=== PATIENT | male | born 1960 | race Caucasian/White ===

== ENCOUNTER 2024-01-14 12:08 | Inpatient (IN) ==
[2024-01-14] MEDS: SODIUM CHLORIDE 0.9% 500 ML IV STA (12:35)
[2024-01-14 12:59] LABS: Basophils # (auto) 0.03 K/uL (0.00-0.20); Basophils % (auto) 0.2 %; Eosinophils # (auto) 0.17 K/uL (0.00-0.50); Hematocrit (blood only) 29.2 % (42.0-52.0); Hemoglobin 8.9 g/dl (14.0-18.0); Immature Granulocytes # (auto) 0.12 K/uL (0.01-0.20); Immature Granulocytes % (auto) 0.7 %; Lymphocytes # (auto) 1.25 K/uL (1.20-3.40); Lymphocytes % (auto) 7.4 %; Mean Corpuscular Hgb Conc 30.5 g/dL (32.0-36.0); Mean Platelet Volume 9.3 fL (9.4-12.4); Monocytes # (auto) 1.05 K/uL (0.11-0.59); Monocytes % (auto) 6.2 %; Neutrophils # (auto) 14.37 K/uL (1.40-6.50); Neutrophils % (auto) 84.5 %; Platelet Count 556 K/uL (130-400); RDW Coefficient of Variation 16.3 % (11.5-14.5); Red Blood Count 3.56 M/uL (4.70-6.10); White Blood Count 16.99 K/ul (4.8-10.8)
[2024-01-14 13:20] LABS: Alanine Aminotransferase 11 U/L (7-52); Albumin Globulin Ratio 0.7 (0.9-2); Albumin Level 2.8 gm/dl (3.4-5.0); Alkaline Phosphatase 331 U/L (34-104); Anion Gap 12 (3-11); Aspartate Aminotransferase 41 U/L (13-39); BUN Creatinine Ratio 23.4 (10-20); Bilirubin,Total 0.5 mg/dl (0.2-1.0); Blood Urea Nitrogen 15 mg/dl (6-23); Calcium 8.5 mg/dl (8.6-10.3); Carbon Dioxide 24 mmol/L (21-32); Chloride 98 mmol/L (98-107); Est GFR (African American) 122.5 ml/min; Est GFR (Non-African American) 105.7 ml/min; Globulin 4.3 gm/dl (2.5-4.0); Glucose 121 mg/dl (70-99(Fasting)); Magnesium 1.7 mg/dl (1.7-2.4); Potassium 4.3 mmol/L (3.5-5.1); Sodium 134 mmol/L (136-145); Total Protein 7.1 gm/dl (6.0-8.3)
[2024-01-14 13:21] LABS: Troponin I High Sensitivity 10.9 pg/ml (0-20)
[2024-01-14] MEDS: SODIUM CHLORIDE 0.9% 2,000 ML IV ONE (13:23)
--- NOTE | 2024-01-14 13:28 | Emergency Department Note ---
Impression & Plan Abdominal pain, Metastatic colon cancer to liver, Elevated lactic acid level, Leukocytosis ED Provider Note HISTORY OF PRESENT ILLNESS: Patient is a 63-year-old male presenting with right-sided abdominal pain. Patient reports has been having abdominal pain in his right lower and upper quadrants for the last 2 weeks. He states the pain is constant and does not go away. He states the pain radiates into his right low back. Denies any nausea or vomiting. He does report diarrhea that started late last night. He denies any recent sick contact exposures. Denies any fevers. He went to the present medic unit last night and complained of symptoms and they transferred him to the emergency department today for assessment. Patient denies any dysuria or hematuria. He denies any history of abdominal surgeries. He currently rates the pain a 9 out of 10. He took Tylenol earlier today with minimal relief in his symptoms. ROS: as above PHYSICAL EXAM: Constitutional: Patient appears in no acute distress. HENT: Head: Normocephalic and atraumatic. Eyes: EOMI, PERRL Mouth/Throat: Mucous membranes moist. Neck: Trachea midline. Neck supple. Cardiovascular: Tachycardic with regular rhythm. No murmurs, rubs or gallops. Intact distal pulses. Pulmonary/Chest: No respiratory distress. Breath sounds clear and equal bilaterally. No wheezes or rales. Abdominal: Abdomen soft, no rebound or guarding. RUQ and RLQ TTP Musculoskeletal: No edema, tenderness or deformity noted. Skin: Warm and dry. No rash, erythema, pallor or cyanosis Psychiatric: Appropriate mood and affect for situation. Neurological: Alert and keenly responsive. CN II-XII grossly intact, moving all extremities equally and fully. MDM: - Vitals signs showed hypotension and tachycardia. - History obtained via patient. History as above. - Chronic conditions affecting care: depression/anxiety; DM-2 - Differential diagnoses include, but are not limited to: cholecystitis; diverticulitis; colon cancer; appendicitis; UTI; perforated peptic ulcer - Order placed for continuous cardiac monitoring. At this time, monitor showed rate of 85 bpm with normal sinus rhythm, per my interpretation. - External medical records reviewed. - EKG interpreted by myself showed normal sinus rhythm. Rate tachycardic at 102 bpm. QT 348. No acute ischemic changes. - Laboratory workup interpreted by myself showed leukocytosis (WBC 16.99) wtih left shift; anemia (Hgb 8.9); elevated INR (1.2); normal electrolytes; elevated anion gap (12); elevated lactate (4.0); hypocalcemia (Ca 8.5); elevated procalcitonin (0.65) - CXR negative for pneumonia, per my interpretation. Radiology notes bilateral metastases. - Patient given 1.5L NS in ER. Repeat lactate within normal limits - Blood cultures obtained. Patient empirically started on IV zosyn. - Given 0.5 mg IV dilaudid for pain control. - CT abdomen/pelvis with IV contrast showed a large necrotic mass in the cecum and ascending colon concerning for primary malignancy. Noted to have extensive metastatic disease. No obstruction noted. Noted to have subacute fractures of the posterior 10th rib, and T12-L2 superior endplates. - Patient still complaining of significant pain in ER. Will admit to hospitalist service for pain control and heme/onc consultation and/or palliative consultation. - Discussion was had with case managers about patient's case and need for admission - Hospitalist, Dr. Smith, consulted for admission - Patient admitted to [facility] hospitalist service for further evaluation and management. ASSESSMENT AND PLAN: Diagnosis: abdominal pain; metastatic colon cancer; leukocytosis; elevated lactic acid Plan: admit Past Med/Surg History Problem List (Updated 01/14/24 @ 16:00 by Taylor Salcedo MD) Leukocytosis (Acute) Elevated lactic acid level (Acute) Metastatic colon cancer to liver (Acute) Abdominal pain (Acute) Social History Smoking Status: Never smoker Feels Safe at Home: Yes Results & Data (ED) Vital Signs Vital Signs - 24 hr 01/14/24 12:15 01/14/24 13:09 01/14/24 13:09 Temperature 36.7 C 36.9 C Temperature Source Oral Oral Pulse Rate 102 H Pulse Rate [Apical] 93 H Pulse Rate from SpO2 Sensor Pulse Rhythm Regular Respiratory Rate 20 20 Respiratory Effort / Characteristics Non-Labored Spontaneous Non-Labored Spontaneous Respiratory Depth Normal Respiratory Pattern Regular Blood Pressure 99/69 L Blood Pressure [Left Arm] 103/67 Blood Pressure Mean 79 Blood Pressure Mean [Left Arm] 79 Blood Pressure Position [Left Arm] Semi-fowlers Pulse Oximetry 97 98 98 Oxygen Delivery Method Room Air Room Air Room Air Sepsis Recent Fever Within 48 Hours No Sepsis New/Unexplained Change in Mental Status No Sepsis Action Taken by Nursing No Action Required 01/14/24 13:09 01/14/24 13:27 01/14/24 13:30 Temperature Temperature Source Pulse Rate 93 H 87 89 Pulse Rate [Apical] Pulse Rate from SpO2 Sensor 89 Pulse Rhythm Respiratory Rate 19 26 H Respiratory Effort / Characteristics Respiratory Depth Respiratory Pattern Blood Pressure 110/75 Blood Pressure [Left Arm] Blood Pressure Mean 85 Blood Pressure Mean [Left Arm] Blood Pressure Position [Left Arm] Pulse Oximetry 97 Oxygen Delivery Method Room Air Sepsis Recent Fever Within 48 Hours Sepsis New/Unexplained Change in Mental Status Sepsis Action Taken by Nursing 01/14/24 13:51 01/14/24 14:12 01/14/24 14:30 Temperature Temperature Source Pulse Rate 89 90 89 Pulse Rate [Apical] Pulse Rate from SpO2 Sensor 89 90 Pulse Rhythm Respiratory Rate 26 H 27 H 21 Respiratory Effort / Characteristics Respiratory Depth Respiratory Pattern Blood Pressure Blood Pressure [Left Arm] Blood Pressure Mean Blood Pressure Mean [Left Arm] Blood Pressure Position [Left Arm] Pulse Oximetry 94 92 Oxygen Delivery Method Sepsis Recent Fever Within 48 Hours Sepsis New/Unexplained Change in Mental Status Sepsis Action Taken by Nursing 01/14/24 14:30 01/14/24 14:30 01/14/24 14:30 Temperature Temperature Source Pulse Rate 89 Pulse Rate [Apical] Pulse Rate from SpO2 Sensor Pulse Rhythm Respiratory Rate 19 Respiratory Effort / Characteristics Respiratory Depth Respiratory Pattern Blood Pressure 115/74 115/74 115/74 Blood Pressure [Left Arm] Blood Pressure Mean 82 82 82 Blood Pressure Mean [Left Arm] Blood Pressure Position [Left Arm] Pulse Oximetry 95 Oxygen Delivery Method Room Air Sepsis Recent Fever Within 48 Hours Sepsis New/Unexplained Change in Mental Status Sepsis Action Taken by Nursing 01/14/24 14:30 01/14/24 14:42 01/14/24 14:54 Temperature Temperature Source Pulse Rate 91 H 91 H 87 Pulse Rate [Apical] Pulse Rate from SpO2 Sensor Pulse Rhythm Respiratory Rate 26 H 26 H 24 Respiratory Effort / Characteristics Respiratory Depth Respiratory Pattern Blood Pressure 115/74 Blood Pressure [Left Arm] Blood Pressure Mean 82 Blood Pressure Mean [Left Arm] Blood Pressure Position [Left Arm] Pulse Oximetry 95 Oxygen Delivery Method Room Air Sepsis Recent Fever Within 48 Hours Sepsis New/Unexplained Change in Mental Status Sepsis Action Taken by Nursing 01/14/24 14:57 01/14/24 15:00 01/14/24 15:09 Temperature Temperature Source Pulse Rate 88 86 Pulse Rate [Apical] 85 Pulse Rate from SpO2 Sensor 86 Pulse Rhythm Respiratory Rate 26 H 22 20 Respiratory Effort / Characteristics Non-Labored Spontaneous Respiratory Depth Normal Respiratory Pattern Regular Blood Pressure 111/69 Blood Pressure [Left Arm] 111/69 Blood Pressure Mean 77 Blood Pressure Mean [Left Arm] 83 Blood Pressure Position [Left Arm] Semi-fowlers Pulse Oximetry 96 96 Oxygen Delivery Method Room Air Room Air Sepsis Recent Fever Within 48 Hours Sepsis New/Unexplained Change in Mental Status Sepsis Action Taken by Nursing 01/14/24 15:21 01/14/24 15:24 01/14/24 15:30 Temperature Temperature Source Pulse Rate 86 87 Pulse Rate [Apical] Pulse Rate from SpO2 Sensor 86 87 Pulse Rhythm Respiratory Rate 21 20 Respiratory Effort / Characteristics Respiratory Depth Respiratory Pattern Blood Pressure 121/77 Blood Pressure [Left Arm] Blood Pressure Mean 96 Blood Pressure Mean [Left Arm] Blood Pressure Position [Left Arm] Pulse Oximetry 98 95 Oxygen Delivery Method Sepsis Recent Fever Within 48 Hours Sepsis New/Unexplained Change in Mental Status Sepsis Action Taken by Nursing 01/14/24 15:36 01/14/24 15:57 01/14/24 16:00 Temperature Temperature Source Pulse Rate 85 82 Pulse Rate [Apical] Pulse Rate from SpO2 Sensor 85 85 Pulse Rhythm Respiratory Rate 20 20 Respiratory Effort / Characteristics Respiratory Depth Respiratory Pattern Blood Pressure 108/73 Blood Pressure [Left Arm] Blood Pressure Mean 88 Blood Pressure Mean [Left Arm] Blood Pressure Position [Left Arm] Pulse Oximetry 96 95 Oxygen Delivery Method Sepsis Recent Fever Within 48 Hours Sepsis New/Unexplained Change in Mental Status Sepsis Action Taken by Nursing 01/14/24 16:00 01/14/24 16:00 Temperature Temperature Source Pulse Rate 90 90 Pulse Rate [Apical] Pulse Rate from SpO2 Sensor 90 90 Pulse Rhythm Respiratory Rate 20 20 Respiratory Effort / Characteristics Respiratory Depth Respiratory Pattern Blood Pressure 108/73 Blood Pressure [Left Arm] Blood Pressure Mean 88 Blood Pressure Mean [Left Arm] Blood Pressure Position [Left Arm] Pulse Oximetry 97 97 Oxygen Delivery Method Room Air Sepsis Recent Fever Within 48 Hours Sepsis New/Unexplained Change in Mental Status Sepsis Action Taken by Nursing Laboratory Data 01/14/24 12:30 01/14/24 12:30 Lab Results 01/14/24 01/14/24 Range/Units 12:30 15:05 WBC 16.99 H (4.8-10.8) K/ul RBC 3.56 L (4.70-6.10) M/uL Hgb 8.9 L (14.0-18.0) g/dl Hct 29.2 L (42.0-52.0) % MCV 82.0 (80.0-100.0) fL MCH 25.0 (25.0-34.0) pg MCHC 30.5 L (32.0-36.0) g/dL RDW Std Deviation 49.0 H (36.4-46.3) fL RDW Coeff of Lin 16.3 H (11.5-14.5) % Plt Count 556 H (130-400) K/uL MPV 9.3 L (9.4-12.4) fL Immature Gran % (Auto) 0.7 % Neut % (Auto) 84.5 % Lymph % (Auto) 7.4 % [place] % (Auto) 6.2 % Eos % (Auto) 1.0 % Baso % (Auto) 0.2 % Neut # (Auto) 14.37 H (1.40-6.50) K/uL Lymph # (Auto) 1.25 (1.20-3.40) K/uL [place] # (Auto) 1.05 H (0.11-0.59) K/uL Eos # (Auto) 0.17 (0.00-0.50) K/uL Baso # (Auto) 0.03 (0.00-0.20) K/uL Immature Gran # (Auto) 0.12 (0.01-0.20) K/uL PT 12.4 H (9.0-12.0) Seconds INR 1.2 H (0.9-1.1) APTT 26 (21-31) Seconds PTT Ratio 1.0 Sodium 134 L (136-145) mmol/L Potassium 4.3 (3.5-5.1) mmol/L Chloride 98 (98-107) mmol/L Carbon Dioxide 24 (21-32) mmol/L Anion Gap 12 H (3-11) BUN 15 (6-23) mg/dl Creatinine 0.64 (0.6-1.4) mg/dl Est Cr Clr Drug Dosing Not Reportable Est GFR ( Amer) 122.5 ml/min Est GFR (Non-Af Amer) 105.7 ml/min BUN/Creatinine Ratio 23.4 H (10-20) Glucose 121 H (70-99(Fasting)) mg/dl Lactate 4.0 H* 1.8 (0.4-2.0) mmol/L Calcium 8.5 L (8.6-10.3) mg/dl Magnesium 1.7 (1.7-2.4) mg/dl Total Bilirubin 0.5 (0.2-1.0) mg/dl AST 41 H (13-39) U/L ALT 11 (7-52) U/L Alkaline Phosphatase 331 H (34-104) U/L Troponin I High Sens 10.9 (0-20) pg/ml Total Protein 7.1 (6.0-8.3) gm/dl Albumin 2.8 L (3.4-5.0) gm/dl Globulin 4.3 H (2.5-4.0) gm/dl Albumin/Globulin Ratio 0.7 L (0.9-2) Procalcitonin 0.65 H (0-0.5) ng/ml Administered Medications Discontinued Medications Hydromorphone HCl (Hydromorphone Inj 0.5 Mg/0.5 Ml Syr) 0.5 mg IV NOW STA Stop: 01/14/24 15:12 Last Admin: 01/14/24 15:17 Dose: 0.5 mg Documented By: GIAN Sodium Chloride (Nss) 500 mls @ 999 mls/hr IV .Q31M STA Stop: 01/14/24 12:49 Last Infusion: 01/14/24 13:07 Dose: Infused Documented By: Admin: 01/14/24 12:35 Dose: 999 mls/hr Documented By: SANDEEP Sodium Chloride (Nss) 2,000 mls @ 999 mls/hr IV .Q2H1M ONE Stop: 01/14/24 14:57 Last Infusion: 01/14/24 16:18 Dose: Infused Documented By: Admin: 01/14/24 13:23 Dose: 999 mls/hr Documented By: NESSA Piperacillin Sod/Tazobactam Sod (Zosyn) 4.5 gm in 100 mls @ 200 mls/hr IV NOW ONE Stop: 01/14/24 13:32 Last Infusion: 01/14/24 16:18 Dose: Infused Documented By: Admin: 01/14/24 15:03 Dose: 200 mls/hr Documented By: GIAN Ioversol (Optiray 320 100ml) 93 ml IV ONCE ONE Stop: 01/14/24 13:43 Last Admin: 01/14/24 13:43 Dose: 93 ml Documented By: MARCIE Imaging Data Radiologist's Impression: Chest X-Ray 01/14/24 12:19 XR chest 1V portable HISTORY: 63 years-old Male Sepsis COMPARISON: CT abdomen and pelvis of same day TECHNIQUE: AP view of the chest FINDINGS: Cardiac silhouette is normal. Scattered bilateral solid pulmonary nodules measure up to 1.4 cm within the right lung base. Right hilar/paratracheal opacity. No pneumothorax, pleural effusion or overt pulmonary edema. Bones appear grossly intact. Reverse right shoulder arthroplasty. IMPRESSION: 1. Bilateral pulmonary metastasis. 2. Right paratracheal opacity could be correlated with nonemergent follow-up chest CT to exclude lymphadenopathy. 3. Please refer to the CT abdomen and pelvis study of same day for additional findings. ACT 112: Negative or not required by law. The above report was generated using voice recognition software. It may contain grammatical, syntax or spelling errors. Electronically signed by: Reddy Mcclure M.D. 01/14/2024 1:55 PM Abdomen/Pelvis CT 01/14/24 13:[address] WITH IV CONTRAST CT DOSE: 760.96 mGy.cm HISTORY: right-sided abdominal pain TECHNIQUE: Multiaxial CT images of the abdomen and pelvis were performed following the use of intravenous contrast. A dose lowering technique was utilized adhering to the principles of ALARA. COMPARISON STUDY: None. FINDINGS: Multiple scattered nodules at the lung bases with the largest within the right lower lobe measuring 11 mm. These are consistent with metastatic disease. No pneumoperitoneum. No pneumatosis. A few punctate sclerotic foci within the pelvis favor bone islands. There is a subacute/healing fracture within the right posterior 10th rib with surrounding callus formation and mild sclerosis. There is also mild sclerosis at the superior endplates of T12-L2 with mild loss of height consistent with subacute compression fractures. No associated retropulsion. No definite suspicious osseous lesions. Necrotic and mildly enlarged anterior diaphragmatic/pericardial lymph nodes measuring up to 1.6 cm consistent with metastatic disease. The gallbladder, pancreas, spleen, adrenal glands, and kidneys are unremarkable. Mild calcified plaque within the normal caliber abdominal aorta. No pelvic lymphadenopathy. Small amount of perihepatic and pelvic fluid. Bladder wall thickening is likely due to chronic outlet obstruction from the enlarged prostate gland. Multiple irregular hypodense masses seen throughout the liver most pronounced within the left hepatic lobe consistent with metastatic disease. The dominant lesion within the left hepatic lobe measures approximately 10.8 cm. Mild/moderate narrowing of the main portal vein due to mass effect from the left hepatic lobe masses. There is necrotic periportal, gastrohepatic, and retroperitoneal lymphadenopathy. The dominant left periaortic lymph node on image 123 measures 3.6 cm. This is also consistent with metastatic disease. There is mild ileocolic lymphadenopathy and also likely representing metastatic disease. No evidence for a bowel obstruction. No evidence for acute appendicitis. There is a large necrotic mass involving the majority of the cecum and ascending colon which measures approximately 12.0 x 8.6 x 8.1 cm. This likely represents the patient's primary malignancy. IMPRESSION: 1. There is a 12.0 x 8.6 x 8.1 cm necrotic mass involving the majority of the cecum and ascending colon. This likely represents the patient's primary malignancy. 2. Extensive metastatic disease within the visualized chest, abdomen, and pelvis as described above most pronounced within the liver. 3. Subacute/healing fractures within the right posterior 10th rib and the T12-L2 superior endplates. Pathologic fractures are considered less likely but not entirely excluded. No definite suspicious osseous lesions identified. 4. Small amount of ascites. 5. No evidence for a bowel obstruction. 6. Additional findings as described above. ACT 112: Negative or not required by law. Electronically signed by: Sherwin Dickerson M.D. 01/14/2024 2:23 PM Discharge Plan Visit Data Chief Complaint: Abdominal Pain Stated Complaint: ABD PAIN ED Provider: Taylor Salcedo Discharge Problem: Abdominal pain, Metastatic colon cancer to liver, Elevated lactic acid level, Leukocytosis Forms Stand Alone Forms: [facility] Referrals Referrals: PCP,NO [Physician] -
[2024-01-14 13:29] LABS: INR 1.2 (0.9-1.1); Partial Thromboplastin Time 26 Seconds (21-31); Prothrombin Time 12.4 Seconds (9.0-12.0)
[2024-01-14] MEDS: OPTIRAY 320 100ml IV ONE (13:43)
--- NOTE | 2024-01-14 13:56 | XRay Report ---
XR chest 1V portable HISTORY: 63 years-old Male Sepsis COMPARISON: CT abdomen and pelvis of same day TECHNIQUE: AP view of the chest FINDINGS: Cardiac silhouette is normal. Scattered bilateral solid pulmonary nodules measure up to 1.4 cm within the right lung base. Right hilar/paratracheal opacity. No pneumothorax, pleural effusion or overt pu lmonary edema. Bones appear grossly intact. Reverse right shoulder arthroplasty. IMPRESSION: 1. Bilateral pulmonary metastasis. 2. Right paratracheal opacity could be correlated with nonemergent follow-up chest CT to exclude lymp hadenopathy. 3. Please refer to the CT abdomen and pelvis study of same day for additional findings. ACT 112: Negative or not required by law. The above report was generated using voice recognition software. It may contain grammatical, syntax o r spelling errors. Electronically signed by: Reddy Mcclure M.D. 01/14/2024 1:55 PM
--- NOTE | 2024-01-14 14:25 | CT Scan Report ---
ABDOMEN AND PELVIS CT WITH IV CONTRAST CT DOSE: 760.96 mGy.cm HISTORY: right-sided abdominal pain TECHNIQUE: Multiaxial CT images of the abdomen and pelvis were performed following the use of intrave nous contrast. A dose lowering technique was utilized adhering to the principles of ALARA. COMPARISON STUDY: None. FINDINGS: Multiple scattered nodules at the lung bases with the largest within the right lower lobe m easuring 11 mm. These are consistent with metastatic disease. No pneumoperitoneum. No pneumatosis. A few punctate sclerotic foci within the pelvis favor bone islands. There is a subacute/healing fractur e within the right posterior 10th rib with surrounding callus formation and mild sclerosis. There is also mild sclerosis at the superior endplates of T12-L2 with mild loss of height consistent with suba cute compression fractures. No associated retropulsion. No definite suspicious osseous lesions. Necro tic and mildly enlarged anterior diaphragmatic/pericardial lymph nodes measuring up to 1.6 cm consist ent with metastatic disease. The gallbladder, pancreas, spleen, adrenal glands, and kidneys are unrem arkable. Mild calcified plaque within the normal caliber abdominal aorta. No pelvic lymphadenopathy. Small amount of perihepatic and pelvic fluid. Bladder wall thickening is likely due to chronic outlet obstruction from the enlarged prostate gland. Multiple irregular hypodense masses seen throughout th e liver most pronounced within the left hepatic lobe consistent with metastatic disease. The dominant lesion within the left hepatic lobe measures approximately 10.8 cm. Mild/moderate narrowing of the m ain portal vein due to mass effect from the left hepatic lobe masses. There is necrotic periportal, g astrohepatic, and retroperitoneal lymphadenopathy. The dominant left periaortic lymph node on image 1 23 measures 3.6 cm. This is also consistent with metastatic disease. There is mild ileocolic lymphade nopathy and also likely representing metastatic disease. No evidence for a bowel obstruction. No evid ence for acute appendicitis. There is a large necrotic mass involving the majority of the cecum and a scending colon which measures approximately 12.0 x 8.6 x 8.1 cm. This likely represents the patient's primary malignancy. IMPRESSION: 1. There is a 12.0 x 8.6 x 8.1 cm necrotic mass involving the majority of the cecum and ascending col on. This likely represents the patient's primary malignancy. 2. Extensive metastatic disease within the visualized chest, abdomen, and pelvis as described above m ost pronounced within the liver. 3. Subacute/healing fractures within the right posterior 10th rib and the T12-L2 superior endplates. Pathologic fractures are considered less likely but not entirely excluded. No definite suspicious oss eous lesions identified. 4. Small amount of ascites. 5. No evidence for a bowel obstruction. 6. Additional findings as described above. ACT 112: Negative or not required by law. Electronically signed by: Sherwin Dickerson M.D. 01/14/2024 2:23 PM
--- NOTE | 2024-01-14 14:40 | Electrocardiogram Report ---
Test Reason : Blood Pressure : / mmHG Vent. Rate : 102 BPM Atrial Rate : 102 BPM P-R Int : 130 ms QRS Dur : 064 ms QT Int : 348 ms P-R-T Axes : 033 -20 -24 degrees QTc Int : 453 ms Poor data quality, interpretation may be adversely affected Sinus tachycardia Diffuse Minor Nonspecific T wave abnormality Abnormal ECG No previous ECGs available Confirmed by Franko Nolen ([id number]) on 01/14/2024 2:40:08 PM Referred By: Confirmed By:Franko Nolen
[2024-01-14] MEDS: PIPERACILLIN/TAZOBACTAM 4.5 GM/100 ML BAG IV ONE (15:03)
[2024-01-14] MEDS: HYDROmorphone INJ 0.5 MG/0.5 ML SYR IV STA (15:17)
--- NOTE | 2024-01-14 16:31 | History & Physical Report ---
Date of Service January 14, 2024 Assessment & Plan (1) Metastatic colon cancer to liver: Plan: Suspected based on CT - discussed with the patient and request an oncology consult CEA pending Consult oncology to discuss options and full staging, consider palliative consult (2) Leukocytosis: Plan: Suspect related to cancer but given necrotic mass will prophylactically cover with IV Zosyn pending blood culture results Possible sepsis although no definitive infection IV lfluid bolus appropriately given and lactate resolved Empiric antibiotics with IV Zosyn Follow up blood cultures (3) Melena: Plan: Fecal occult blood ordered Monitor Hgb in AM Pantoprazole 40mg IV pending workup although suspect this is just a lower rather than upper GI bleed (4) T2DM (type 2 diabetes mellitus): Plan: Hemoglobin A1C with AM labs, unclear if this is a historical diagnosis and metformin can potentially be discontinued with his weight loss if A1C is low and not requiring Novolog Novolog: --Goal BSG Range: Low 110 mg/dL, High 140 mg/dL --Correction Factor: 45 mg/dL/unit No carb ratio --BSGs ACHS if eating, q6h if npo (5) Hyperlipidemia: Plan: Continue atorvastatin (6) Elevated lactic acid level: Plan: Hypovolemia, resolved with IV fluids in the ER (7) Orthostatic hypotension: Plan: Prior diagnosis, likely related to his weight loss Continue fludrocortisone (8) Anemia: Plan VTE Prophylaxis - SCD, chemical deferred due to melena Diet - regular Disposition - admit to PCU Admission and Anticipated Discharge Date Admission Date: January 14, 2024 History of Present Illness Chief Complaint: Back pain Primary Care Provider: MANDY Rendon Stephania Samson is a 63 year old male who presents to the ER with back pain. He reports 3 days of central back pain, non-radiating, severity 6/10, so bad he is unable to sleep, worse with any movement. He notes only mild back pain chronically but nothing like the last few days. Associated right lower quadrant abdominal pain although this has been going on for longer around the last 2 weeks. No change in bowel movements although he notes the color has been black for the last 5 days. No nausea, vomiting, fever or chills. Over the last year he reports weight loss from 220lb to 144lb. He notes his appetite has been fine with no dysphagia or odynophagia. Urine has been dark but otherwise no urinary symptoms. He has ongoing exertional dizziness for the last year with a diagnosis of orthostatic hypotension for which he is on fludrocortisone. Allergies Allergy/AdvReac Type Severity Reaction Status Date / Time No Known Allergies Allergy Unverified 01/14/24 17:23 Home Medications Medication Instructions Recorded Confirmed Type acetaminophen 500 mg tablet 500 mg PO TID 01/14/24 01/14/24 History (Tylenol Extra Strength) atorvastatin 10 mg tablet 10 mg PO HS 01/14/24 01/14/24 History benztropine 2 mg tablet 2 mg PO HS 01/14/24 01/14/24 History divalproex 500 mg tablet,delayed 1,000 mg PO HS 01/14/24 01/14/24 History release fludrocortisone 0.1 mg tablet 0.1 mg PO DAILY 01/14/24 01/14/24 History ibuprofen 400 mg tablet 400 mg PO TID PRN Pain 01/14/24 01/14/24 History metformin 1,000 mg tablet 1,000 mg PO BID 01/14/24 01/14/24 History perphenazine 2 mg tablet 6 mg PO HS 01/14/24 01/14/24 History sertraline 100 mg tablet 200 mg PO HS 01/14/24 01/14/24 History Past Med/Surg History Problem List (Updated 01/15/24 @ 06:56 by Tacho Smith MD) Anemia Melena Orthostatic hypotension Hyperlipidemia Hypertension T2DM (type 2 diabetes mellitus) Leukocytosis (Acute) Elevated lactic acid level (Acute) Metastatic colon cancer to liver (Acute) Abdominal pain (Acute) Medical History (Updated 01/15/24 @ 06:56 by Tacho Smith MD) BPPV (benign paroxysmal positional vertigo) History of right shoulder fracture Social History Smoking Status: Former smoker Hx Alcohol Use: No Hx Substance Use: No Preferred Language: Bahamian Communication Ability: Effective Plasterer Spray Gun Required: No Beliefs That Will Affect Care: None Current Living Situation: Other Current Living Situation Comment: [facility] facility Feels Safe at Home: Yes Assistive Devices: Glasses Review of Systems Review of Systems: All systems reviewed & are unremarkable except as noted in HPI & below Physical Exam Constitutional: well developed; + not well nourished and no acute distress Eyes: + conjunctival abnormality (pale) ENMT: Mouth: + dry oral mucous membranes Respiratory: normal respiratory effort, lungs clear to auscultation Cardiovascular: RRR, no murmur, no edema Gastrointestinal (Abdomen): Inspection/Auscultation: abdomen normal to inspection; abdomen not distended Percussion/Palpation: + abdomen tender (RLQ) and abdomen soft Musculoskeletal: Spine: + lumbar spinal tenderness and + paraspinal tenderness (right lumbar) Skin: + pallor Neurologic: moves all extremities and awake; no focal motor deficits and not confused Psychiatric: A+Ox3, euthymic affect Genitourinary: + CVA tenderness (right) Results & Data Results & Data Vital Signs (Past 12 Hours) Vital Signs Temp Pulse Pulse Resp BP BP Pulse Ox 01/14/24 16:00 90 20 97 01/14/24 16:00 90 20 108/73 97 01/14/24 16:00 108/73 01/14/24 15:57 82 20 95 01/14/24 15:36 85 20 96 01/14/24 15:30 121/77 01/14/24 15:24 87 20 95 01/14/24 15:21 86 21 98 01/14/24 15:09 86 20 111/69 96 01/14/24 15:00 85 22 111/69 96 01/14/24 14:57 88 26 H 01/14/24 14:54 87 24 01/14/24 14:42 91 H 26 H 01/14/24 14:30 91 H 26 H 115/74 95 01/14/24 14:30 115/74 01/14/24 14:30 115/74 01/14/24 14:30 89 19 115/74 95 01/14/24 14:30 89 21 01/14/24 14:12 90 27 H 92 01/14/24 13:51 89 26 H 94 01/14/24 13:30 89 26 H 110/75 01/14/24 13:27 87 01/14/24 13:09 93 H 19 97 01/14/24 13:09 98 01/14/24 13:09 36.9 C 93 H 20 103/67 98 01/14/24 12:15 36.7 C 102 H 20 99/69 L 97 O2 Del Method 01/14/24 16:00 01/14/24 16:00 Room Air 01/14/24 16:00 01/14/24 15:57 01/14/24 15:36 01/14/24 15:30 01/14/24 15:24 01/14/24 15:21 01/14/24 15:09 Room Air 01/14/24 15:00 Room Air 01/14/24 14:57 01/14/24 14:54 01/14/24 14:42 01/14/24 14:30 Room Air 01/14/24 14:30 01/14/24 14:30 01/14/24 14:30 Room Air 01/14/24 14:30 01/14/24 14:12 01/14/24 13:51 01/14/24 13:30 01/14/24 13:27 01/14/24 13:09 Room Air 01/14/24 13:09 Room Air 01/14/24 13:09 Room Air 01/14/24 12:15 Room Air Laboratory Results Abnormal lab results 01/14/24 01/14/24 01/14/24 Range/Units 12:30 19:15 Unknown WBC 16.99 H (4.8-10.8) K/ul RBC 3.56 L (4.70-6.10) M/uL Hgb 8.9 L (14.0-18.0) g/dl Hct 29.2 L (42.0-52.0) % MCHC 30.5 L (32.0-36.0) g/dL RDW Std Deviation 49.0 H (36.4-46.3) fL RDW Coeff of Lin 16.3 H (11.5-14.5) % Plt Count 556 H (130-400) K/uL MPV 9.3 L (9.4-12.4) fL Neut # (Auto) 14.37 H (1.40-6.50) K/uL [place] # (Auto) 1.05 H (0.11-0.59) K/uL PT 12.4 H (9.0-12.0) Seconds INR 1.2 H (0.9-1.1) Sodium 134 L (136-145) mmol/L Anion Gap 12 H (3-11) BUN/Creatinine Ratio 23.4 H (10-20) Glucose 121 H (70-99(Fasting)) mg/dl POC Glucose 114 H (70-99) mg/dl Lactate 4.0 H* (0.4-2.0) mmol/L Calcium 8.5 L (8.6-10.3) mg/dl AST 41 H (13-39) U/L Alkaline Phosphatase 331 H (34-104) U/L Albumin 2.8 L (3.4-5.0) gm/dl Globulin 4.3 H (2.5-4.0) gm/dl Albumin/Globulin Ratio 0.7 L (0.9-2) Carcinoembryonic Ag > 850.0 H (0-2.5) ng/ml Procalcitonin 0.65 H (0-0.5) ng/ml Ur Specific [place] > 1.045 H (1.000-1.030) Urine Protein Trace H (Negative) Urine Ketones Trace H (Negative) Diagnostic Findings XR chest 1V portable HISTORY: 63 years-old Male Sepsis COMPARISON: CT abdomen and pelvis of same day TECHNIQUE: AP view of the chest FINDINGS: Cardiac silhouette is normal. Scattered bilateral solid pulmonary nodules measure up to 1.4 cm within the right lung base. Right hilar/paratracheal opacity. No pneumothorax, pleural effusion or overt pulmonary edema. Bones appear grossly intact. Reverse right shoulder arthroplasty. IMPRESSION: 1. Bilateral pulmonary metastasis. 2. Right paratracheal opacity could be correlated with nonemergent follow-up chest CT to exclude lymphadenopathy. 3. Please refer to the CT abdomen and pelvis study of same day for additional findings. ABDOMEN AND PELVIS CT WITH IV CONTRAST CT DOSE: 760.96 mGy.cm HISTORY: right-sided abdominal pain TECHNIQUE: Multiaxial CT images of the abdomen and pelvis were performed following the use of intravenous contrast. A dose lowering technique was utilized adhering to the principles of ALARA. COMPARISON STUDY: None. FINDINGS: Multiple scattered nodules at the lung bases with the largest within the right lower lobe measuring 11 mm. These are consistent with metastatic disease. No pneumoperitoneum. No pneumatosis. A few punctate sclerotic foci within the pelvis favor bone islands. There is a subacute/healing fracture within the right posterior 10th rib with surrounding callus formation and mild sclerosis. There is also mild sclerosis at the superior endplates of T12-L2 with mild loss of height consistent with subacute compression fractures. No associated retropulsion. No definite suspicious osseous lesions. Necrotic and mildly enlarged anterior diaphragmatic/pericardial lymph nodes measuring up to 1.6 cm consistent with metastatic disease. The gallbladder, pancreas, spleen, adrenal glands, and kidneys are unremarkable. Mild calcified plaque within the normal caliber abdominal aorta. No pelvic lymphadenopathy. Small amount of perihepatic and pelvic fluid. Bladder wall thickening is likely due to chronic outlet obstruction from the enlarged prostate gland. Multiple irregular hypodense masses seen throughout the liver most pronounced within the left hepatic lobe consistent with metastatic disease. The dominant lesion within the left hepatic lobe measures approximately 10.8 cm. Mild/moderate narrowing of the main portal vein due to mass effect from the left hepatic lobe masses. There is necrotic periportal, gastrohepatic, and retroperitoneal lymphadenopathy. The dominant left periaortic lymph node on image 123 measures 3.6 cm. This is also consistent with metastatic disease. There is mild ileocolic lymphadenopathy and also likely representing metastatic disease. No evidence for a bowel o bstruction. No evidence for acute appendicitis. There is a large necrotic mass involving the majority of the cecum and ascending colon which measures approximately 12.0 x 8.6 x 8.1 cm. This likely represents the patient's primary malignancy. IMPRESSION: 1. There is a 12.0 x 8.6 x 8.1 cm necrotic mass involving the majority of the cecum and ascending colon. This likely represents the patient's primary malignancy. 2. Extensive metastatic disease within the visualized chest, abdomen, and pelvis as described above most pronounced within the liver. 3. Subacute/healing fractures within the right posterior 10th rib and the T12-L2 superior endplates. Pathologic fractures are considered less likely but not entirely excluded. No definite suspicious osseous lesions identified. 4. Small amount of ascites. 5. No evidence for a bowel obstruction. 6. Additional findings as described above. Medications Administered ER Medications Given: NSS 500 ml bolus NSS 2000ml bolus Zosyn 4.5g IV Dilaudid 0.5mg IV ECG Rate (beats per minute): 102 Rhythm: sinus tachycardia Findings: + other (diffuse non specific T wave abnormality) Comparison ECG Date: no prior available Code Status & VTE Plan Code Status DNR/DNI per patient wishes, unable to contact provider at [facility] to discuss VTE Prophylaxis Plan VTE Prophylaxis will be ordered: Yes PG Care Time/CCT Total # of Minutes Spent Total Time Spent with Patient: Total time spent is greater than 50% in coordination of care (as documented) at patient's floor/unit and/or counseling patient: Coding Level of Care Code 47339 INT INP/OBS CARE 3/75MIN Diagnoses Metastatic colon cancer to liver C18.9; C78.7 Leukocytosis D72.829 Melena K92.1 T2DM (type 2 diabetes mellitus) E11.9 Hyperlipidemia E78.5 Elevated lactic acid level R79.89 Orthostatic hypotension I95.1 Anemia D64.9
[2024-01-14] MEDS ORDERED: GLUCAGON FOR INJ 1 MG VIAL SQ PRN (18:11)
[2024-01-14] MEDS ORDERED: DEXTROSE 50% 50 ML SYRINGE IV PRN (18:11)
[2024-01-14] MEDS ORDERED: GLUCOSE 40% GEL 15 GM TUBE PO PRN (18:11)
[2024-01-14] MEDS ORDERED: GLUCOSE 10 TAB/TUBE PO PRN (18:11)
[2024-01-14] MEDS ORDERED: ACETAMINOPHEN 325 MG TAB PO PRN (18:11)
[2024-01-14] MEDS ORDERED: CARBOHYDRATES FOR HYPOGLYCEMIA PO PRN (18:11)
[2024-01-14] MEDS: PERPHENAZINE 2 MG TAB PO SCH (20:04)
[2024-01-14] MEDS: SERTRALINE HCL 100 MG TABLET PO SCH (20:04)
[2024-01-14] MEDS: DIVALPROEX DELAY RELEASE 500 MG TAB PO SCH (20:06)
[2024-01-14] MEDS: PIPERACILLIN/TAZOBACTAM 4.5 GM in DEXTROSE 5% MINI-B 100 ML IV SCH (20:06)
[2024-01-14] MEDS: PANTOprazole 40 MG in SYRINGE 0 ML IV STA (20:06)
[2024-01-14] MEDS: ATORVASTATIN 10 MG TAB PO SCH (20:07)
[2024-01-14] MEDS: BENZTROPINE MESYLATE 1 MG TAB PO SCH (20:07)
[2024-01-14] MEDS: ACETAMINOPHEN 500 MG TAB PO SCH (20:08)
[2024-01-14] MEDS: ONDANSETRON INJ 2 MG/ML 2 ML VIAL IV PRN (20:09)
[2024-01-14] MEDS: INSULIN ASPART PER UNIT CHARGE SC SCH (20:09)
[2024-01-14 20:10] LABS: Appearance Urine Clear (Clear); Bacteria Urine Automated None Seen (None Seen); Bilirubin Urine Negative (Negative); Blood Urine Negative (Negative); Cast Urine Automated 0-2 /lpf (0-2); Color Urine Yellow; Epithelial Cell Urine Auto 0-2 /hpf (0-2); Glucose Urine UA Negative (Negative); Ketones Urine Trace (Negative); Leukocyte Esterase Urine Negative (Negative); Nitrite Urine Negative (Negative); Protein Urine Trace (Negative); RBC Urine Automated 0-2 /hpf (0-2); Specific Gravity Urine > 1.045 (1.000-1.030); Urobilinogen Urine Negative (Negative); WBC Urine Automated 0-5 /hpf (0-5)
[2024-01-14] MEDS ORDERED: oxyCODONE HCL IR 5 MG TAB (IMMEDIATE RELEASE) PO PRN (22:26)
[2024-01-15 04:58] LABS: A calco-baum cmplx NotReported Not Detected (NotDetected); Bact fragilis Not Reported Not Detected (NotDetected); Blood Culture Id Panel See PCR Comment (NotDetected); C auris Not Reported Not Detected (NotDetected); CTX-M Resistant Gene Not Detected (NotDetected); Calbicans Not Reported Not Detected (NotDetected); Candida glabrata Not Reported Not Detected (NotDetected); Candida krusei Not Reported Not Detected (NotDetected); Cneoformans/gatti Not Reported Not Detected (NotDetected); Cparapsilosis Not Reported Not Detected (NotDetected); E cloacae compx Not Reported Not Detected (NotDetected); Efaecalis Not Reported Not Detected (NotDetected); Efaecium Not Reported Not Detected (NotDetected); Enterobacterales DETECTED (NotDetected); Enterobacterales Not Reported DETECTED (NotDetected); Escherichia coli Not Reported DETECTED (NotDetected); H influenzae Not Reported Not Detected (NotDetected); IMP Resistant Gene Not Detected (NotDetected); K aerogenes Not Reported Not Detected (NotDetected); KPC Resistant Gene Not Detected (NotDetected); Koxytoca Not Reported Not Detected (NotDetected); Kpneumoniae grp Not Reported Not Detected (NotDetected); Lmonocyt Not Reported Not Detected (NotDetected); N meningitidis Not Reported Not Detected (NotDetected); NDM Resistant Gene Not Detected (NotDetected); OXA 48 Like Resistant Gene Not Detected (NotDetected); P aeruginosa Not Reported Not Detected (NotDetected); Proteus spp Not Reported Not Detected (NotDetected); Salmonella spp Not Reported Not Detected (NotDetected); Staph lugdunensis Not Reported Not Detected (NotDetected); Staph spp. Not Reported Not Detected (NotDetected); Staphaureus Not Reported Not Detected (NotDetected); Staphepi Not Reported Not Detected (NotDetected); Stenmaltophilia Not Reported Not Detected (NotDetected); Strep agal(GrpB) Not Reported Not Detected (NotDetected); Strep pneum Not Reported Not Detected (NotDetected); Strep pyog (GrpA) Not Reported Not Detected (NotDetected); Strep spp Not Reported Not Detected (NotDetected); VIM Resistant Gene Not Detected (NotDetected); mcr-1 Colistin Resistant Gene Not Detected (NotDetected)
[2024-01-15 04:59] LABS: Basophils # (auto) 0.03 K/uL (0.00-0.20); Basophils % (auto) 0.3 %; Eosinophils # (auto) 0.13 K/uL (0.00-0.50); Eosinophils % (auto) 1.3 %; Hematocrit (blood only) 23.5 % (42.0-52.0); Hemoglobin 7.1 g/dl (14.0-18.0); Immature Granulocytes # (auto) 0.05 K/uL (0.01-0.20); Immature Granulocytes % (auto) 0.5 %; Lymphocytes # (auto) 1.17 K/uL (1.20-3.40); Lymphocytes % (auto) 11.7 %; Mean Corpuscular Hemoglobin 24.9 pg (25.0-34.0); Mean Corpuscular Hgb Conc 30.2 g/dL (32.0-36.0); Mean Corpuscular Volume 82.5 fL (80.0-100.0); Mean Platelet Volume 9.1 fL (9.4-12.4); Monocytes # (auto) 0.67 K/uL (0.11-0.59); Monocytes % (auto) 6.7 %; Neutrophils # (auto) 7.91 K/uL (1.40-6.50); Neutrophils % (auto) 79.5 %; Platelet Count 308 K/uL (130-400); RDW Coefficient of Variation 16.7 % (11.5-14.5); RDW Standard Deviation 50.3 fL (36.4-46.3); Red Blood Count 2.85 M/uL (4.70-6.10); White Blood Count 9.96 K/ul (4.8-10.8)
[2024-01-15 05:29] LABS: Albumin Globulin Ratio 0.6 (0.9-2); Albumin Level 2.1 gm/dl (3.4-5.0); Bilirubin,Total 0.3 mg/dl (0.2-1.0); Calcium 7.4 mg/dl (8.6-10.3); Est GFR (African American) 127.5 ml/min; Globulin 3.5 gm/dl (2.5-4.0); Potassium 3.6 mmol/L (3.5-5.1); Total Protein 5.6 gm/dl (6.0-8.3)
[2024-01-15 05:37] LABS: RBC Morphology Unremarkable
--- NOTE | 2024-01-15 05:47 | Communication Note ---
Date of Service: January 15, 2024 Was notified that patient had hemoglobin drop from 8.9 on admission to 7.1 this morning. Type/screen was completed on admission but informed blood consent had not been obtained, I went to bedside at 6:20 a.m. to discuss risks/benefits and patient signed informed blood consent form. Patient is hemodynamically stable at present, no orders placed for immediate transfusion at this time. Blood cultures noted to grow gram negative bacilli in 1 of 2 bottles, should receive adequate coverage with current antibiotic regimen of Zosyn. Resident Activity Tracking Resident Involvement: Resident Care Provided Care Provided: Adult Hospital Medicine
[2024-01-15 06:50] LABS: Estimated Average Glucose 134 mg/dl; Hemoglobin A1C 6.3 % (4.5-5.6)
[2024-01-15] MEDS: FLUDROCORTISONE ACETATE 0.1 MG TAB PO SCH (08:10)
[2024-01-15] MEDS: PANTOprazole 40 MG in SYRINGE 0 ML IV SCH (11:16)
[2024-01-15 14:50] LABS: Hematocrit (blood only) 24.2 % (42.0-52.0); Hemoglobin 7.3 g/dl (14.0-18.0)
--- NOTE | 2024-01-15 17:19 | Oncology Consultation ---
Date of Consultation January 15, 2024 Assessment & Plan (1) Metastatic colon cancer to liver: I have reviewed the CT scan, the picture is pretty classic for metastatic colorectal cancer. However I would need a biopsy-proven diagnosis. GI has been consulted the patient can undergo colonoscopy for diagnosis. The other option would be to biopsy one of the liver lesions to make a diagnosis. Once we have a tissue diagnosis I will have a treatment plan for the patient which would most likely include palliative systemic chemotherapy. I will discuss this with the patient in detail once I have a biopsy-proven diagnosis. Plan Medical oncology will continue to follow the patient make appropriate recommendations. Thank you for this interesting oncological consult. A total of 60 minutes was spent in counseling, coordination of care, review of prior records. History of Present Illness Reason for Consultation: ?Metastatic colorectal cancer liver metastatic disease Attending Physician: Justen Clement History of Present Illness the patient is a very pleasant 63-year-old man who initially presented to [facility] with back pain. He is also lost weight, about 100 pounds within the last 1 year. On admission to the hospital he had a CT scan of the abdomen pelvis, performed on 01/14/2024 which revealed a 12.0 x 8.6 x 8.1 cm necrotic mass involving majority of the cecum and ascending colon. This likely represents the patient's primary malignancy. He had extensive disease within the visualized chest, abdomen and pelvis. There was subacute fractures involving the right posterior 10th rib, T12 and L2 endplates. Medical oncology has been consulted to assist in management of this patient with possible metastatic cancer. The patient continues to have back pain. He is currently having a lot of loose stool. He has had melena for the last 5 days. Allergies Allergy/AdvReac Type Severity Reaction Status Date / Time No Known Allergies Allergy Unverified 01/14/24 17:23 Home Medications Medication Instructions Recorded Confirmed Type acetaminophen 500 mg tablet 500 mg PO TID 01/14/24 01/14/24 History (Tylenol Extra Strength) atorvastatin 10 mg tablet 10 mg PO HS 01/14/24 01/14/24 History benztropine 2 mg tablet 2 mg PO HS 01/14/24 01/14/24 History divalproex 500 mg tablet,delayed 1,000 mg PO HS 01/14/24 01/14/24 History release fludrocortisone 0.1 mg tablet 0.1 mg PO DAILY 01/14/24 01/14/24 History ibuprofen 400 mg tablet 400 mg PO TID PRN Pain 01/14/24 01/14/24 History metformin 1,000 mg tablet 1,000 mg PO BID 01/14/24 01/14/24 History perphenazine 2 mg tablet 6 mg PO HS 01/14/24 01/14/24 History sertraline 100 mg tablet 200 mg PO HS 01/14/24 01/14/24 History Patient History Medical History (Updated 01/16/24 @ 11:54 by Caryl Montiel PA-C) BPPV (benign paroxysmal positional vertigo) History of right shoulder fracture Social History Smoking Status: Former smoker Hx Alcohol Use: No Hx Substance Use: No Preferred Language: Sinhala Communication Ability: Effective Rough Patcher Required: No Beliefs That Will Affect Care: None Current Living Situation: Other Current Living Situation Comment: Correctional facility Feels Safe at Home: Yes Assistive Devices: None Review of Systems Review of Systems: All systems reviewed & are unremarkable except as noted in HPI & below Constitutional: as per Subjective / HPI Eyes: as per Subjective / HPI Ear, Nose, Mouth, Throat: as per Subjective / HPI Respiratory: as per Subjective / HPI Cardiovascular: as per Subjective / HPI Gastrointestinal: as per Subjective / HPI Genitourinary: + as per Subjective / HPI Musculoskeletal: as per Subjective / HPI Integumentary: as per Subjective / HPI Neurologic: as per Subjective / HPI Psychiatric: as per Subjective / HPI Endocrine: as per Subjective / HPI Hematologic / Lymphatic: as per Subjective / HPI Allergy / Immunological: as per Subjective / HPI Physical Exam Constitutional: WD/WN, vitals as above Eyes: PERRL, conjunctivae normal, anicteric sclerae ENMT: external ear and nose normal, oropharynx normal Neck: trachea midline, no thyromegaly Respiratory: normal respiratory effort, lungs clear to auscultation Cardiovascular: RRR, no murmur, no edema Gastrointestinal (Abdomen): normal bowel sounds, soft, nontender, no hepatosplenomegaly Musculoskeletal: no cyanosis or clubbing, extremities motor strength 5/5 Skin: no rashes, warm and dry Neurologic: patellar DTR's 2+ bilat, sensation intact
--- NOTE | 2024-01-15 17:54 | Hospitalist Progress Note ---
Date of Service January 15, 2024 Assessment & Plan (1) Metastatic colon cancer to liver: Plan: Suspected based on CT - discussed with the patient and request an oncology consult CEA pending Consult oncology to discuss options and full staging, consider palliative consult comnsult general surgery and gastro. Hemoglobin dropped but has remained over 7. will closely monitor hemoglobin (2) Leukocytosis: Plan: Suspect related to cancer but given necrotic mass will prophylactically cover with IV Zosyn pending blood culture results Possible sepsis although no definitive infection IV lfluid bolus appropriately given and lactate resolved Empiric antibiotics with IV Zosyn Follow up blood cultures (3) Melena: Plan: Fecal occult blood ordered Monitor Hgb in AM Pantoprazole 40mg IV pending workup although suspect this is just a lower rather than upper GI bleed (4) T2DM (type 2 diabetes mellitus): Plan: Hemoglobin A1C with AM labs, unclear if this is a historical diagnosis and metformin can potentially be discontinued with his weight loss if A1C is low and not requiring Novolog Novolog: --Goal BSG Range: Low 110 mg/dL, High 140 mg/dL --Correction Factor: 45 mg/dL/unit No carb ratio --BSGs ACHS if eating, q6h if npo (5) Hyperlipidemia: Plan: Continue atorvastatin (6) Elevated lactic acid level: Plan: Hypovolemia, resolved with IV fluids in the ER (7) Orthostatic hypotension: Plan: Prior diagnosis, likely related to his weight loss Continue fludrocortisone (8) Anemia: Plan VTE Prophylaxis - SCD, chemical deferred due to melena Diet - regular Disposition - admit to PCU Admission and Anticipated Discharge Date Admission Date: January 14, 2024 Subjective 63 yo male reports having diarrhea. He had a large bowel movement. Review of Systems Review of Systems: All systems reviewed & are unremarkable except as noted in HPI & below Physical Exam Constitutional: well developed; + not well nourished and no acute distress Eyes: + conjunctival abnormality (pale) ENMT: Mouth: + dry oral mucous membranes Respiratory: normal respiratory effort, lungs clear to auscultation Cardiovascular: RRR, no murmur, no edema Gastrointestinal (Abdomen): Inspection/Auscultation: abdomen normal to inspection; abdomen not distended Percussion/Palpation: abdomen soft Skin: + pallor Neurologic: moves all extremities and awake; no focal motor deficits and not confused Psychiatric: A+Ox3, euthymic affect Genitourinary: + CVA tenderness (right) Results & Data Results & Data Vital Signs (Past 12 Hours) Vital Signs Pulse Resp BP Pulse Ox 01/15/24 16:00 118/63 01/15/24 16:00 77 25 H 96 01/15/24 14:09 75 23 96 01/15/24 14:00 117/70 01/15/24 13:15 79 22 96 01/15/24 12:00 131/82 01/15/24 12:00 87 23 97 01/15/24 10:12 77 19 01/15/24 10:00 117/71 01/15/24 09:39 75 19 01/15/24 08:12 75 26 H 01/15/24 07:36 96 H 26 H PG Care Time/CCT Total # of Minutes Spent Total Time Spent with Patient: Total time spent is greater than 50% in coordination of care (as documented) at patient's floor/unit and/or counseling patient: Coding Level of Care Code 83786 SUB INP/OBS CARE 2/35MIN Diagnoses Metastatic colon cancer to liver C18.9; C78.7 Leukocytosis D72.829 Melena K92.1 T2DM (type 2 diabetes mellitus) E11.9 Hyperlipidemia E78.5 Elevated lactic acid level R79.89 Orthostatic hypotension I95.1 Anemia D64.9
[2024-01-15 17:58] LABS: Hematocrit (blood only) 24.5 % (42.0-52.0); Hemoglobin 7.4 g/dl (14.0-18.0)
[2024-01-16 00:15] LABS: Hematocrit (blood only) 23.2 % (42.0-52.0)
[2024-01-16 05:05] LABS: Hemoglobin 7.9 g/dl (14.0-18.0); Mean Corpuscular Hemoglobin 25.2 pg (25.0-34.0); Mean Corpuscular Hgb Conc 30.4 g/dL (32.0-36.0); Mean Corpuscular Volume 83.1 fL (80.0-100.0); Platelet Count 392 K/uL (130-400); RDW Coefficient of Variation 16.2 % (11.5-14.5); RDW Standard Deviation 48.9 fL (36.4-46.3); Red Blood Count 3.13 M/uL (4.70-6.10); White Blood Count 14.16 K/ul (4.8-10.8)
[2024-01-16 05:13] LABS: Calcium 7.7 mg/dl (8.6-10.3); Est GFR (African American) 135.6 ml/min; Potassium 3.3 mmol/L (3.5-5.1)
--- NOTE | 2024-01-16 11:43 | Gastrointestinal Consultation ---
Date of Consultation January 16, 2024 Assessment & Plan (1) Abnormal CT scan, colon: Concern for colon cancer with diffuse metastatic disease. Patient wants to proceed with colonoscopy for tissue diagnosis. Clear liquids today, Keep NPO after midnight with exception of bowel prep. Proceed with colonoscopy on 01/17/24. Continue IV Protonix 40 mg BID given melena, however suspect this is probably from the right side of the colon. EGD on 01/17/24. Coordination of oncology & palliative care discussions per primary team. Supervising Physician Co-Signing Physician Notes I personally saw and examined the patient. I have reviewed the chart and agree with the documentation provided by the GENERAL SCIENCE TEACHER including discussion about the assessment, treatment and plan. Briefly, 63 yo incarcerated male who presented to the ED with an abrupt onset of back pain. He noted back pain for several days and right sided abdominal pain that began 2 weeks ago but began to interfere with his sleep. He notes he is typically constipated, but is now having a lot of loose & urgent stool. He has had melena x 5 days. He denies nausea or vomiting. He has had a notable weight loss of approximately 80 lbs. He denies GI family history. He has never had a colonoscopy. He has been treated at the correctional facility for orthostatic hypotension given ongoing dizziness. H/H 7.9/26.0. Upon presentation to the hospital, he had a CT abdomen/pelvis that indicates: 1. There is a 12.0 x 8.6 x 8.1 cm necrotic mass involving the majority of the cecum and ascending colon. This likely represents the patient's primary malignancy. 2. Extensive metastatic disease within the visualized chest, abdomen, and pelvis as described above most pronounced within the liver. At this point bleeding is likely necrotic tumor with dark stools. He will get eg d and colon in am to get tissue diagnosis. Tumor burden is extensive and difficult situation. Check CEA. History of Present Illness Reason for Consultation: "colon cancer" Attending Physician: Justen Clement History of Present Illness Patient is a 63 yo incarcerated male who presented to the ED with an abrupt onset of back pain. He noted back pain for several days and right sided abdominal pain that began 2 weeks ago but began to interfere with his sleep. He notes he is typically constipated, but is now having a lot of loose & urgent stool. He has had melena x 5 days. He denies nausea or vomiting. He has had a no table weight loss of approximately 80 lbs. He denies GI family history. He has never had a colonoscopy. He has been treated at the correctional facility for orthostatic hypotension given ongoing dizziness. H/H 7.9/26.0. Upon presentation to the hospital, he had a CT abdomen/pelvis that indicates: 1. There is a 12.0 x 8.6 x 8.1 cm necrotic mass involving the majority of the cecum and ascending colon. This likely represents the patient's primary malignancy. 2. Extensive metastatic disease within the visualized chest, abdomen, and pelvis as described above most pronounced within the liver. 3. Subacute/healing fractures within the right posterior 10th rib and the T12-L2 superior endplates. Pathologic fractures are considered less likely but not entirely excluded. No definite suspicious osseous lesions identified. 4. Small amount of ascites. 5. No evidence for a bowel obstruction. Allergies Allergy/AdvReac Type Severity Reaction Status Date / Time No Known Allergies Allergy Unverified 01/14/24 17:23 Home Medications Medication Instructions Recorded Confirmed Type acetaminophen 500 mg tablet 500 mg PO TID 01/14/24 01/14/24 History (Tylenol Extra Strength) atorvastatin 10 mg tablet 10 mg PO HS 01/14/24 01/14/24 History benztropine 2 mg tablet 2 mg PO HS 01/14/24 01/14/24 History divalproex 500 mg tablet,delayed 1,000 mg PO HS 01/14/24 01/14/24 History release fludrocortisone 0.1 mg tablet 0.1 mg PO DAILY 01/14/24 01/14/24 History ibuprofen 400 mg tablet 400 mg PO TID PRN Pain 01/14/24 01/14/24 History metformin 1,000 mg tablet 1,000 mg PO BID 01/14/24 01/14/24 History perphenazine 2 mg tablet 6 mg PO HS 01/14/24 01/14/24 History sertraline 100 mg tablet 200 mg PO HS 01/14/24 01/14/24 History Patient History Medical History (Updated 01/16/24 @ 11:54 by Caryl Montiel PA-C) BPPV (benign paroxysmal positional vertigo) History of right shoulder fracture Social History Smoking Status: Former smoker Hx Alcohol Use: No Hx Substance Use: No Preferred Language: Italian Communication Ability: Effective Hand Chain Maker Required: No Beliefs That Will Affect Care: None Current Living Situation: Other Current Living Situation Comment: Correctional facility Feels Safe at Home: Yes Assistive Devices: None Review of Systems Constitutional: no weight loss Respiratory: no cough and no dyspnea Cardiovascular: no chest pain Gastrointestinal: + abdominal pain, + change in bowel habi ts and + melena Psychiatric: no problem reported Hematologic / Lymphatic: no unexplained weight loss Physical Exam Constitutional: well developed Respiratory: normal respiratory effort Cardiovascular: Rate/Rhythm: regular rate Gastrointestinal (Abdomen): Percussion/Palpation: + abdomen tender Psychiatric: Orientation: alert and oriented x 3 Results & Data Vital Signs (Past 12 Hours) Vital Signs Temp Pulse Resp BP Pulse Ox 01/16/24 09:42 79 20 99 01/16/24 09:32 116/63 01/16/24 09:30 96 01/16/24 09:12 97 01/16/24 09:00 97 01/16/24 08:30 99 01/16/24 08:09 77 25 H 98 01/16/24 08:00 153/122 H 01/16/24 08:00 153/122 H 01/16/24 07:45 91 H 26 H 97 01/16/24 07:42 97 H 21 97 01/16/24 07:27 100 H 22 100 01/16/24 07:18 90 25 H 97 01/16/24 07:03 89 25 H 98 01/16/24 06:54 89 24 98 01/16/24 06:48 91 H 24 97 01/16/24 06:33 89 24 97 01/16/24 06:24 95 H 24 97 01/16/24 06:18 87 23 97 01/16/24 06:03 87 24 97 01/16/24 06:00 127/76 01/16/24 06:00 127/76 01/16/24 06:00 127/76 01/16/24 05:36 81 23 96 01/16/24 05:21 86 23 97 01/16/24 05:18 86 23 96 01/16/24 04:51 90 21 96 01/16/24 04:48 90 22 96 01/16/24 04:44 37 C 01/16/24 04:21 82 22 96 01/16/24 04:15 82 23 97 01/16/24 04:06 81 23 97 01/16/24 04:01 120/82 01/16/24 04:01 120/82 01/16/24 03:51 81 24 97 01/16/24 03:36 78 21 97 01/16/24 03:21 74 22 97 01/16/24 03:12 76 23 97 01/16/24 03:00 76 20 97 01/16/24 02:30 86 22 96 01/16/24 02:24 78 22 96 01/16/24 02:18 79 22 96 01/16/24 02:00 78 21 96 01/16/24 01:51 90 30 H 97 01/16/24 01:48 90 23 99 01/16/24 01:30 80 21 96 01/16/24 01:21 82 22 97 01/16/24 01:06 76 19 97 01/16/24 00:21 93 H 23 97 01/16/24 00:09 37.2 C 01/16/24 00:01 124/73 01/16/24 00:00 76 01/15/24 23:57 75 24 97 PG Care Time/CCT Total # of Minutes Spent Total Time Spent with Patient: Total time spent is greater than 50% in coordination of care (as documented) at patient's floor/unit and/or counseling patient: Coding Level of Care Code 79755 IN/OBS CONSULT LVL 4,60M Diagnoses Abnormal CT scan, colon R93.3
[2024-01-16] MEDS: LAVAGE SOLUTION 4000ML PO SCH (18:28)
[2024-01-16] MEDS: PANTOprazole 40 MG in SYRINGE 0 ML IV SCH (20:57)
--- NOTE | 2024-01-16 22:38 | Hospitalist Progress Note ---
Date of Service January 16, 2024 Assessment & Plan (1) Metastatic colon cancer to liver: Plan: Suspected based on CT - discussed with the patient and request an oncology consult CEA pending Consult oncology to discuss options and full staging, consider palliative consult comnsult general surgery and gastro. Hemoglobin dropped but has remained over 7. consulted gastro, will obtain upper and lower GI scopes on 11/16 (2) Leukocytosis: Plan: Suspect related to cancer but given necrotic mass will prophylactically cover with IV Zosyn pending blood culture results Possible sepsis although no definitive infection IV lfluid bolus appropriately given and lactate resolved Empiric antibiotics with IV Zosyn Follow up blood cultures (3) Melena: Plan: Fecal occult blood ordered Monitor Hgb in AM Pantoprazole 40mg IV pending workup although suspect this is just a lower rather than upper GI bleed (4) T2DM (type 2 diabetes mellitus): Plan: Hemoglobin A1C with AM labs, unclear if this is a historical diagnosis and metformin can potentially be discontinued with his weight loss if A1C is low and not requiring Novolog Novolog: --Goal BSG Range: Low 110 mg/dL, High 140 mg/dL --Correction Factor: 45 mg/dL/unit No carb ratio --BSGs ACHS if eating, q6h if npo (5) Hyperlipidemia: Plan: Continue atorvastatin (6) Elevated lactic acid level: Plan: Hypovolemia, resolved with IV fluids in the ER (7) Orthostatic hypotension: Plan: Prior diagnosis, likely related to his weight loss Continue fludrocortisone (8) Anemia: Plan VTE Prophylaxis - SCD, chemical deferred due to melena Diet - regular Disposition - admit to PCU Admission and Anticipated Discharge Date Admission Date: January 14, 2024 Subjective 63 yo male reports no new symptoms. Review of Systems Review of Systems: All systems reviewed & are unremarkable except as noted in HPI & below Physical Exam Constitutional: well developed; + not well nourished and no acute distress Eyes: + conjunctival abnormality (pale) Respiratory: normal respiratory effort, lungs clear to auscultation Cardiovascular: RRR, no murmur, no edema Gastrointestinal (Abdomen): Inspection/Auscultation: abdomen normal to inspection; abdomen not distended Percussion/Palpation: abdomen soft Skin: + pallor Neurologic: moves all extremities and awake; no focal motor deficits and not confused Psychiatric: A+Ox3, euthymic affect Genitourinary: + CVA tenderness (right) Results & Data Results & Data Vital Signs (Past 12 Hours) Vital Signs Pulse Resp BP Pulse Ox O2 Del Method 01/16/24 21:45 Room Air 01/16/24 16:42 93 H 24 94 01/16/24 16:30 90 19 96 01/16/24 16:12 84 22 98 01/16/24 16:00 126/71 01/16/24 16:00 85 23 99 01/16/24 15:57 87 23 99 01/16/24 15:00 79 24 97 01/16/24 14:51 82 23 97 01/16/24 14:33 80 23 97 01/16/24 14:18 83 27 H 97 01/16/24 14:03 83 24 97 01/16/24 14:00 138/79 01/16/24 14:00 138/79 01/16/24 13:57 87 23 97 01/16/24 13:48 82 19 96 01/16/24 13:24 82 24 95 01/16/24 13:12 81 19 97 01/16/24 13:11 128/74 01/16/24 13:06 82 22 97 01/16/24 12:51 83 21 97 01/16/24 12:39 83 17 97 01/16/24 12:21 78 23 97 01/16/24 12:15 82 25 H 98 01/16/24 12:00 83 22 97 01/16/24 11:54 82 23 97 01/16/24 11:48 83 16 98 01/16/24 11:30 95 H 18 97 01/16/24 11:27 93 H 28 H 98 01/16/24 11:15 86 24 98 01/16/24 10:48 96 PG Care Time/CCT Total # of Minutes Spent Total Time Spent with Patient: Total time spent is greater than 50% in coordination of care (as documented) at patient's floor/unit and/or counseling patient: Coding Level of Care Code 69376 SUB INP/OBS CARE 2/35MIN Diagnoses Metastatic colon cancer to liver C18.9; C78.7 Leukocytosis D72.829 Melena K92.1 T2DM (type 2 diabetes mellitus) E11.9 Hyperlipidemia E78.5 Elevated lactic acid level R79.89 Orthostatic hypotension I95.1 Anemia D64.9
[2024-01-17] MEDS ORDERED: Nursing to Pharmacy Communication SCH ×2 (00:30→14:45)
[2024-01-17 04:56] LABS: Hematocrit (blood only) 24.6 % (42.0-52.0); Hemoglobin 7.5 g/dl (14.0-18.0); Mean Corpuscular Hemoglobin 24.8 pg (25.0-34.0); Mean Corpuscular Hgb Conc 30.5 g/dL (32.0-36.0); Mean Corpuscular Volume 81.5 fL (80.0-100.0); Mean Platelet Volume 8.7 fL (9.4-12.4); Platelet Count 320 K/uL (130-400); RDW Coefficient of Variation 16.4 % (11.5-14.5); RDW Standard Deviation 48.6 fL (36.4-46.3); Red Blood Count 3.02 M/uL (4.70-6.10); White Blood Count 8.62 K/ul (4.8-10.8)
[2024-01-17 05:14] LABS: BUN Creatinine Ratio 15.9 (10-20); Calcium 7.4 mg/dl (8.6-10.3); Creatinine Clr Calc Pharmacy 167.1 ml/min; Est GFR (African American) 142.9 ml/min; Est GFR (Non-African American) 123.3 ml/min; Potassium 3.1 mmol/L (3.5-5.1)
[2024-01-17] MEDS: INSULIN ASPART PER UNIT CHARGE SC SCH ×2 (05:50→16:39)
--- NOTE | 2024-01-17 09:08 | History & Physical Bridge Note ---
Date of Service January 17, 2024 History & Physical Bridge Note I have reviewed the History & Physical and in the interval since the performance of the History & Physical I have noted the following changes of clinical significance: no changes noted It is unclear when the patient last consumed prep, so we will plan to hold off on scopes for several hours. Keep NPO & proceed with EGD & colonoscopy today.
--- NOTE | 2024-01-17 10:35 | Anesthesiology Consultation ---
Date of Service January 17, 2024 Assessment & Plan Chart Review Chart Review: Patient NOT seen in Pre Admission Testing and Acceptable Risk for Labor Epidural Consults Requested none ASA ASA3 Proposed Anesthesia Anesthesia Type: MAC Risk / Benefits Reviewed With: PT / POA / Parent / Guardian, Accepts Plan and Informed Consent Obtained History Surgery Operation Date: 01/17/24 16:30 Proposed Procedures p Colonoscopy EGD Qasim Tripp MD Height/Weight Height: 5 ft 9 in Weight: 72.3 kg Allergies Allergy/AdvReac Type Severity Reaction Status Date / Time No Known Allergies Allergy Unverified 01/14/24 17:23 Medications Home Medications Medication Instructions Recorded Confirmed Last Taken acetaminophen 500 mg tablet 500 mg PO TID 01/14/24 01/14/24 Unknown (Tylenol Extra Strength) atorvastatin 10 mg tablet 10 mg PO HS 01/14/24 01/14/24 Unknown benztropine 2 mg tablet 2 mg PO HS 01/14/24 01/14/24 Unknown divalproex 500 mg tablet,delayed 1,000 mg PO HS 01/14/24 01/14/24 Unknown release fludrocortisone 0.1 mg tablet 0.1 mg PO DAILY 01/14/24 01/14/24 Unknown ibuprofen 400 mg tablet 400 mg PO TID PRN Pain 01/14/24 01/14/24 Unknown metformin 1,000 mg tablet 1,000 mg PO BID 01/14/24 01/14/24 Unknown perphenazine 2 mg tablet 6 mg PO HS 01/14/24 01/14/24 Unknown sertraline 100 mg tablet 200 mg PO HS 01/14/24 01/14/24 Unknown Active Medications Generic Name Dose Route Start Last Admin Trade Name Brittney PRN Reason Stop Dose Admin Acetaminophen 500 mg 01/14/24 21:00 01/16/24 20:55 Acetaminophen 500 Mg Tab PO 02/13/24 20:59 500 mg TID NABIL Administration Atorvastatin Calcium 10 mg 01/14/24 21:00 01/16/24 20:55 Atorvastatin 10 Mg Tab PO 02/13/24 20:59 10 mg HS NABIL Administration Benztropine Mesylate 2 mg 01/14/24 21:00 01/16/24 20:56 Benztropine Mesylate 1 Mg Tab PO 02/13/24 20:59 2 mg HS NABIL Administration Divalproex Sodium 1,000 mg 01/14/24 21:00 01/16/24 20:56 Divalproex Delay Release 500 Mg Tab PO 02/13/24 20:59 1,000 mg HS NABIL Administration Fludrocortisone Acetate 0.1 mg 01/15/24 09:00 01/16/24 09:33 Fludrocortisone Acetate 0.1 Mg Tab PO 02/14/24 08:59 0.1 mg DAILY NABIL Administration Piperacillin Sod/Tazobactam 100 mls @ 25 mls/hr 01/14/24 20:00 01/17/24 03:57 Sod 4.5 gm/ Dextrose IV 01/24/24 19:59 25 mls/hr Q8H NABIL Administration Protocol Pantoprazole Sodium 40 mg/ 10 mls @ 5 mls/min 01/16/24 21:00 01/16/24 20:57 Syringe IV 02/15/24 20:59 5 mls/min BID NABIL Administration Insulin Aspart 0 units 01/17/24 06:00 01/17/24 05:50 Insulin Aspart Per Unit Charge SC 02/16/24 05:59 Not Given Q6 NABIL Ondansetron HCl 4 mg 01/14/24 19:45 01/14/24 20:09 Ondansetron Inj 2 Mg/Ml 2 Ml Vial IV 02/13/24 19:44 4 mg Q6H PRN Administration Nausea And Vomiting Perphenazine 6 mg 01/14/24 21:00 01/16/24 20:57 Perphenazine 2 Mg Tab PO 02/13/24 20:59 6 mg HS NABIL Administration Sertraline HCl 200 mg 01/14/24 21:00 01/16/24 20:57 Sertraline Hcl 100 Mg Tablet PO 02/13/24 20:59 200 mg HS NABIL Administration NPO Date Last Intake of Fluids: 01/17/24 Time Last Intake of Fluids: 06:30 Date Last Intake of Solids: 01/16/24 Time Last Intake of Solids: 12:00 Last Intake of Solids Comment: ate a lunch tray Past Medical History Medical History BPPV (benign paroxysmal positional vertigo) History of right shoulder fracture Exercise / Class Metabolic Activity III < 4 Walking/Shop/Light housework Past Anesthesia History No Hx of Anesthesia Complications and No Family Hx of Anesthesia Complications History of PONV No Hx of PONV and No Hx of Motion Sickness Social History Smoking Status: Former smoker Hx Alcohol Use: No Hx Substance Use: No Review of Systems ROS Unobtainable: All systems reviewed & are unremarkable except as noted in HPI & below Physical Exam Vital Signs Last Vital Signs Temp 36.5 C 01/17/24 10:11 Pulse 79 01/17/24 10:11 Resp 16 01/17/24 10:11 BP 118/73 01/17/24 10:11 Pulse Ox 98 01/17/24 10:11 O2 Del Method Room Air 01/17/24 10:11 ENMT Mouth: no TMJ abnormality Thyromental Distance: > or= 3.5 Finger Breadths Mallampati Class: II Neck normal visual inspection and trachea midline; neck extension not limited Respiratory normal respiratory effort Auscultation: lungs clear to auscultation bilaterally Cardiovascular Rate/Rhythm: regular rate and regular rhythm Heart Sounds: no murmur Musculoskeletal Spine: normal cervical ROM Extremities: full ROM of extremities Neurologic moves all extremities Psychiatric Orientation: alert and oriented x 3 Testing Laboratory Results 01/17/24 04:39 01/17/24 04:39 PT 12.4 Seconds (9.0-12.0) H 01/14/24 12:30 INR 1.2 (0.9-1.1) H 01/14/24 12:30 APTT 26 Seconds (21-31) 01/14/24 12:30 Hemoglobin A1c 6.3 % (4.5-5.6) H 01/15/24 04:40 Urine Color Yellow 01/14/24 Unknown Urine Appearance Clear (Clear) 01/14/24 Unknown Urine pH 6.0 (4.5-7.5) 01/14/24 Unknown Ur Specific [place] > 1.045 (1.000-1.030) H 01/14/24 Unknown Urine Protein Trace (Negative) H 01/14/24 Unknown Urine Glucose (UA) Negative (Negative) 01/14/24 Unknown Urine Ketones Trace (Negative) H 01/14/24 Unknown Urine Nitrite Negative (Negative) 01/14/24 Unknown Ur Leukocyte Esterase Negative (Negative) 01/14/24 Unknown Urine WBC (Auto) 0-5 /hpf (0-5) 01/14/24 Unknown Urine RBC (Auto) 0-2 /hpf (0-2) 01/14/24 Unknown U Hyaline Cast (Auto) 0-2 /lpf (0-2) 01/14/24 Unknown U Epithel Cells (Auto) 0-2 /hpf (0-2) 01/14/24 Unknown Urine Bacteria (Auto) None Seen (None Seen) 01/14/24 Unknown Blood Type AB Positive 01/15/24 04:40 Antibody Screen NEGATIVE 01/15/24 04:40 01/14/24 15:05 Aerobic Blood Culture - Final Blood Escherichia coli Anaerobic Blood Culture - Final Escherichia coli 01/14/24 12:30 Aerobic Blood Culture - Preliminary Blood No growth in Aerobic bottle after 48 hours. Anaerobic Blood Culture - Preliminary No growth in Anaerobic bottle after 48 hours. 01/17/24 00:23 POC Glucose 91 Electrocardiogram Date: 01/14/24 Sinus tachycardia Diffuse Minor Nonspecific T wave abnormality Abnormal ECG No previous ECGs available Confirmed by Franko Nolen ([id number]) on 01/14/2024 2:40:08 PM
--- NOTE | 2024-01-17 11:27 | GI REPORT ---
[facility] Patient: GERTRUDIS STUBBS : 1960 Sex at : Male Age: 63 Years Procedure: Colonoscopy Date: 01/17/2024 Attending Physician: Paco Tripp MD Referring MD: Julieta GALVAN; Justen Clement M.d. Indications: - Evaluation of abnormal imaging study of the gastrointestinal tract (likely to be clinically significant) - Abnormal CT of the GI tract Medications: - Monitored Anesthesia Care Complications: - No immediate complications. Estimated Blood Loss: - Estimated blood loss was minimal. Procedure: - Prior to the procedure, a History and Physical was performed, and patient medications and allergies were reviewed. The patient's tolerance of previous anesthesia was also reviewed. The risks and benefits of the procedure and the sedation options and risks were discussed with the patient. All questions were answered, and informed consent was obtained. Prior Anticoagulants: The patient has taken no anticoagulant or antiplatelet agents [Days Prior to Procedure]. ASA Grade Assessment: III - A patient with severe systemic disease. After reviewing the risks and benefits, the patient was deemed in satisfactory condition to undergo the procedure. - The pediatric colonoscope was introduced through the anus and advanced to the cecum, identified by appendiceal orifice and ileocecal valve. - The colonoscopy was performed without difficulty. - The patient tolerated the procedure well. - The quality of the bowel preparation was good. - The ileocecal valve, appendiceal orifice, and rectum were photographed. Findings: - Multiple small-mouthed diverticula were found in the sigmoid colon. - The exam was otherwise without abnormality on direct and retroflexion views. - Internal non-bleeding hemorrhoids were found during retroflexion. The hemorrhoids were Grade I (internal hemorrhoids that do not prolapse). - A fungating partially obstructing large mass was found in the cecum and in the ascending colon. The mass was partially circumferential (involving two-thirds of the lumen circumference). The mass measured 5 cm (in length). Oozing was present. Biopsies were taken with a cold forceps for histology. Estimated blood loss was minimal. - A small (4-6 mm) polyp was found in the cecum. The polyp was sessile. polyp not removed as adjacent to necrotic oozing mass. Impression: - Diverticulosis in the sigmoid colon. - The examination was otherwise normal on direct and retroflexion views. - Internal non-bleeding hemorrhoids. - Likely malignant partially obstructing tumor in the cecum and in the ascending colon. Biopsied. - One small (4-6 mm) polyp in the cecum. - polyp not removed as adjacent to necrotic oozing mass. Recommendation: - Discharge patient to home (ambulatory). - Resume previous diet. - Continue present medications. - Repeat colonoscopy for surveillance based on pathology results. - Return to referring physician as previously scheduled. - Patient has a contact number available for emergencies. The signs and symptoms of potential delayed complications were discussed with the patient. Return to normal activities tomorrow. Written discharge instructions were provided to the patient. - Repeat colonoscopy is recommended [Repeat reason]. The colonoscopy date will be determined based on pathology results from today's exam and current guidelines. Procedure Code(s): - 38420, Colonoscopy, flexible; with biopsy, single or multiple Diagnosis Code(s): - R93.3, Abnormal findings on diagnostic imaging of other parts of digestive tract - D49.0, Neoplasm of unspecified behavior of digestive system - K56.690, Other partial intestinal obstruction - D12.0, Benign neoplasm of cecum - K64.0, First degree hemorrhoids - K57.30, Diverticulosis of large intestine without perforation or abscess without bleeding CPT(R) - 2023 copyright [employer]. All Rights Reserved. The CPT codes, CCI edits and ICD codes generated are intended as suggestions and were generated based on input data. These codes are preliminary and upon cold water machine operator review may be revised to meet current compliance and payer requirements. The provider is responsible for the final determination of appropriate codes, and modifiers. Paco Tripp MD This document has been electronically signed. Note Initiated:01/17/2024 Note Completed:01/17/2024 11:26 AM \\[email or web address]\[email or web address]\Data\Provation\Results\LIVE\[id number]
--- NOTE | 2024-01-17 11:30 | GI REPORT ---
[facility] Patient: GERTRUDIS STUBBS : 1960 Sex at : Male Age: 63 Years Procedure: Upper GI endoscopy Date: 01/17/2024 Attending Physician: Paco Tripp MD Referring MD: Julieta GALVAN; Justen Clement M.d. Indications: - Melena Medications: - Monitored Anesthesia Care Complications: - No immediate complications. Estimated Blood Loss: - Estimated blood loss: None. Procedure: - Prior to the procedure, a History and Physical was performed, and patient medications and allergies were reviewed. The patient's tolerance of previous anesthesia was also reviewed. The risks and benefits of the procedure and the sedation options and risks were discussed with the patient. All questions were answered, and informed consent was obtained. Prior Anticoagulants: The patient has taken no anticoagulant or antiplatelet agents [Days Prior to Procedure]. ASA Grade Assessment: III - A patient with severe systemic disease. After reviewing the risks and benefits, the patient was deemed in satisfactory condition to undergo the procedure. - The pediatric colonoscope was introduced through the mouth and advanced to the second part of the duodenum. - The upper GI endoscopy was accomplished without difficulty. - The patient tolerated the procedure well. Findings: - A small hiatal hernia was present. - The entire examined stomach was normal. - The examined duodenum was normal. Impression: - Small hiatal hernia. - Normal stomach. - Normal examined duodenum. - No specimens collected. Recommendation: - Discharge patient to home (ambulatory). - Resume previous diet. - Continue present medications. - Await pathology results. - Resume [Medication] at prior dose [Time to Restart]. [Management] for further adjustment of therapy. - Return to primary care physician as previously scheduled. - Patient has a contact number available for emergencies. The signs and symptoms of potential delayed complications were discussed with the patient. Return to normal activities tomorrow. Written discharge instructions were provided to the patient. Procedure Code(s): - 81534, Esophagogastroduodenoscopy, flexible, transoral; diagnostic, including collection of specimen(s) by brushing or washing, when performed (separate procedure) Diagnosis Code(s): - K92.1, Melena (includes Hematochezia) - K44.9, Diaphragmatic hernia without obstruction or gangrene CPT(R) - 202 copyright [employer]. All Rights Reserved. The CPT codes, CCI edits and ICD codes generated are intended as suggestions and were generated based on input data. These codes are preliminary and upon assembler small products review may be revised to meet current compliance and payer requirements. The provider is responsible for the final determination of appropriate codes, and modifiers. Paco Tripp MD This document has been electronically signed. Note Initiated:01/17/2024 Note Completed:01/17/2024 11:29 AM [email or web address]\[id number]
[2024-01-17] MEDS: SODIUM CHLORIDE 0.9% 500 ML IV STA (11:38)
--- NOTE | 2024-01-17 12:42 | Anesthesiology Progress Note ---
Date of Service January 17, 2024 Anesthesia Post Procedure Vital Signs Vital Signs: Temp Pulse Pulse Resp BP BP BP 01/17/24 11:54 65 20 114/74 01/17/24 11:39 62 20 110/67 01/17/24 11:24 63 18 94/59 L 01/17/24 10:11 36.5 C 79 16 118/73 01/17/24 04:49 125/73 01/17/24 04:49 125/73 01/17/24 04:48 77 19 01/17/24 04:12 77 19 01/17/24 03:03 78 17 01/17/24 02:12 74 18 01/17/24 02:00 128/82 01/17/24 01:57 77 21 01/17/24 01:00 76 18 01/17/24 00:00 77 17 01/17/24 00:00 131/71 01/17/24 00:00 131/71 01/17/24 00:00 80 01/16/24 23:09 79 24 01/16/24 22:00 125/72 01/16/24 22:00 125/72 01/16/24 22:00 80 25 H 01/16/24 21:45 01/16/24 21:21 79 23 01/16/24 20:06 81 22 01/16/24 20:00 131/77 01/16/24 19:00 78 23 01/16/24 16:42 93 H 24 01/16/24 16:30 90 19 01/16/24 16:12 84 22 01/16/24 16:00 126/71 01/16/24 16:00 85 23 01/16/24 15:57 87 23 01/16/24 15:00 79 24 01/16/24 14:51 82 23 01/16/24 14:33 80 23 01/16/24 14:18 83 27 H 01/16/24 14:03 83 24 01/16/24 14:00 138/79 01/16/24 14:00 138/79 01/16/24 13:57 87 23 01/16/24 13:48 82 19 01/16/24 13:24 82 24 01/16/24 13:12 81 19 01/16/24 13:11 128/74 01/16/24 13:06 82 22 01/16/24 12:51 83 21 Pulse Ox O2 Del Method 01/17/24 11:54 98 Room Air 01/17/24 11:39 97 Room Air 01/17/24 11:24 97 Room Air 01/17/24 10:11 98 Room Air 01/17/24 04:49 01/17/24 04:49 01/17/24 04:48 98 01/17/24 04:12 96 01/17/24 03:03 96 01/17/24 02:12 96 01/17/24 02:00 01/17/24 01:57 96 01/17/24 01:00 95 01/17/24 00:00 01/17/24 00:00 01/17/24 00:00 01/17/24 00:00 01/16/24 23:09 01/16/24 22:00 01/16/24 22:00 01/16/24 22:00 97 01/16/24 21:45 Room Air 01/16/24 21:21 97 01/16/24 20:06 96 01/16/24 20:00 01/16/24 19:00 97 01/16/24 16:42 94 01/16/24 16:30 96 01/16/24 16:12 98 01/16/24 16:00 01/16/24 16:00 99 01/16/24 15:57 99 01/16/24 15:00 97 01/16/24 14:51 97 01/16/24 14:33 97 01/16/24 14:18 97 01/16/24 14:03 97 01/16/24 14:00 01/16/24 14:00 01/16/24 13:57 97 01/16/24 13:48 96 01/16/24 13:24 95 01/16/24 13:12 97 01/16/24 13:11 01/16/24 13:06 97 01/16/24 12:51 97 Pain Intensity Right Abdomen: Pain Intensity: 3 Transfer of Care Handoff Completed per policy Notes Mental Status: alert / awake / arousable Patient Amnestic to Procedure: Yes Nausea / Vomiting: adequately controlled Pain: adequately controlled Airway Patency, RR, SpO2: stable & adequate BP & HR: stable & adequate Hydration State: stable & adequate Anesthetic Complications: no major complications apparent and Pt Satisfied with anesthetic care
[2024-01-17] MEDS: PHENYLEPHRINE 100MCG/ML 10ML SYR IV ONE (14:02)
[2024-01-17] MEDS: PROPOFOL IV EMULSION 10 MG/ML 20 ML VIAL IV ONE (14:02)
[2024-01-17] MEDS: LIDOCAINE 2% 2 ML VIAL/AMP(20MG/ML) INFIL ONE (14:03)
[2024-01-17] MEDS: POTASSIUM CHLORIDE CRTAB 20 MEQ TABCR PO STA (15:46)
--- NOTE | 2024-01-17 16:44 | Infectious Disease Consult ---
Date of Consultation January 17, 2024 Assessment & Plan (1) Abnormal CT scan, colon: (2) T2DM (type 2 diabetes mellitus): (3) Leukocytosis: (4) E coli bacteremia: Plan This is a 63-year-old man currently incarcerated with a past medical history of orthostatic hypotension on fludrocortisone, vertigo, DM2 presents with right- sided abdominal pain for the last 2 weeks and now that radiates to his low back. He denies any associated nausea, vomiting,change in urinary habits, fever, chills, sweats, cough. He is usually constipated but did notice some looser stools recently with some melena. He endorses weight loss over the last year- approximately 80-100 pounds. He denies any change in appetite, night sweats, dysphagia. Has had a few falls as he felt weak with dizziness. In ED he is afebrile. Heart rate 102, blood pressure 99/69, O2 sats 97% on room air. Labs WBC 16.99, hemoglobin 8.9, hematocrit 29.2, platelets 556, lactate 4--> 1.8, procalcitonin 0.65, AST 41, ALT 11, alk phos 331. Chest x-ray shows scattered bilateral solid pulmonary nodules concerning for bilateral pulmonary metastasis and Right hilar/paratracheal opacity. CTAP with contrast shows a 12 x 8.6 x 8.1 cm necrotic mass involving the majority of the cecum and ascending colon C/f primary malignancy. Extensive metastatic disease within the chest, abdomen, pelvis most pronounced within the liver. Subacute/healing fractures within the right posterior 10th rib and the T12-L2 endplates. No evidence of bowel obstruction. Small amount of ascites. He was evaluated by heme-onc and GI. He underwent an EGD and colonoscopy 01/16. Colonoscopy showed multiple small mouth diverticula in the sigmoid colon, a fungating partially obstructing large mass in the cecum and in the ascending colon noted. The mass was partially circumferential involving two thirds of the lumen: It measured 5 cm in length, oozing was present. Biopsies were taken for histology. EGD showed a small hiatal hernia, normal stomach and normal duodenum. No specimens were collected. His hospital course was complicated by an E. coli bacteremia. He is currently on Zosyn. ID consulted for antibiotic duration for E. coli bacteremia. He remains HDS. WBC today is 8.62. Microbiology Blood culture 2: 30 no growth to date Blood culture 01/14/2024 15: 052/2 bottles positive for E. coli (resistant to ampicillin, amp/sulbactam) S amox/clav Antibiotics: Zosyn 01/13ongoing # colorectal mass- r/o colorectal cancer with metastatic disease to lung and liver # ecoli bacteremia # leukocytosis, resolved Discussion- E. coli bacteremia is likely secondary to an abdominal source. He is found to have a large fungating obstructive mass in the cecum and ascending colon. He denies any urinary symptoms. May have developed a transient Ecoli bacteremia in the setting of obstruction of the colon. Leukocytosis has improved. He remains hemodynamically stable. No evidence of abscess on imaging. Recommendations. Discontinued Zosyn and started Ceftriaxone 2 g IV q 24 hours and Flagyl 500 mg p.o. every8 hours -If he continues to clinically improve, can switch to Augmentin (Amoxicillin- CLAVulanate) 875/125 mg PO Q 8 hours ( TID) or if his insurance covers amoxicillinclavulanate XR 2 g p.o. twice daily for a total of 14 d of abx. EOT 01/28/24 Follow up biopsies Thank you for this consult. ID will sign off. Please call [phone] with questions Colin Mejia MD, MPH Infectious Disease [facility] Consultation Information Consultation was provided via telemedicine using two-way real-time interactive telecommunication between the patient and the telemedicine provider. For the duration of the visit, the provider was performing the assessment from a different facility than the patient. This includesuse of bluetooth stethoscope forauscultationperformed by the telepresenter that the telemedicine provider can hear if described in the physical exam. [employer] contact information: Please call [facility] Center . (Phone Number For Physician Use Only) After establishing a telemedicine visit, patient was: Patient was verified with two unique identifiers Time Spent with Patient: Initial => 75 min History of Present Illness Reason for Consultation: Abx duration for GNR bacteremia Requesting Physician: Justen Clement Attending Physician: Justen Clement History of Present Illness This is a 63-year-old man currently incarcerated with a past medical history of orthostatic hypotension on fludrocortisone, vertigo, DM2 presents with right- sided abdominal pain for the last 2 weeks and now that radiates to his low back. He denies any associated nausea, vomiting,change in urinary habits, fever, chills, sweats, cough. He is usually constipated but did notice some looser stools recently with some melena. He endorses weight loss over the last year- approximately 80-100 pounds. He denies any change in appetite, night sweats, dysphagia. Has had a few falls as he felt weak with dizziness. In ED he is afebrile. Heart rate 102, blood pressure 99/69, O2 sats 97% on room air. Labs WBC 16.99, hemoglobin 8.9, hematocrit 29.2, platelets 556, lactate 4--> 1.8, procalcitonin 0.65, AST 41, ALT 11, alk phos 331. Chest x-ray shows scattered bilateral solid pulmonary nodules concerning for bilateral pulmonary metastasis and Right hilar/paratracheal opacity. CTAP with contrast shows a 12 x 8.6 x 8.1 cm necrotic mass involving the majority of the cecum and ascending colon C/f primary malignancy. Extensive metastatic disease within the chest, abdomen, pelvis most pronounced within the liver. Subacute/healing fractures within the right posterior 10th rib and the T12-L2 endplates. No evidence of bowel obstruction. Small amount of ascites. He was evaluated by heme-onc and GI. He underwent an EGD and colonoscopy 01/16. Colonoscopy showed multiple small mouth diverticula in the sigmoid colon, a fungating partially obstructing large mass in the cecum and in the ascending colon noted. The mass was partially circumferential involving two thirds of the lumen: It measured 5 cm in length, oozing was present. Biopsies were taken for histology. EGD showed a small hiatal hernia, normal stomach and normal duodenum. No specimens were collected. His hospital course was complicated by an E. coli bacteremia. He is currently on Zosyn. ID consulted for antibiotic duration for E. coli bacteremia. He remains HDS. WBC today is 8.62. Allergies Allergy/AdvReac Type Severity Reaction Status Date / Time No Known Allergies Allergy Unverified 01/14/24 17:23 Home Medications Medication Instructions Recorded Confirmed Type acetaminophen 500 mg tablet 500 mg PO TID 01/14/24 01/14/24 History (Tylenol Extra Strength) atorvastatin 10 mg tablet 10 mg PO HS 01/14/24 01/14/24 History benztropine 2 mg tablet 2 mg PO HS 01/14/24 01/14/24 History divalproex 500 mg tablet,delayed 1,000 mg PO HS 01/14/24 01/14/24 History release fludrocortisone 0.1 mg tablet 0.1 mg PO DAILY 01/14/24 01/14/24 History ibuprofen 400 mg tablet 400 mg PO TID PRN Pain 01/14/24 01/14/24 History metformin 1,000 mg tablet 1,000 mg PO BID 01/14/24 01/14/24 History perphenazine 2 mg tablet 6 mg PO HS 01/14/24 01/14/24 History sertraline 100 mg tablet 200 mg PO HS 01/14/24 01/14/24 History Patient History Medical History BPPV (benign paroxysmal positional vertigo) History of right shoulder fracture Social History Smoking Status: Former smoker Hx Alcohol Use: No Hx Substance Use: No Preferred Language: [place] Communication Ability: Effective Crap Game Box Person Required: No Beliefs That Will Affect Care: None Current Living Situation: Other Current Living Situation Comment: Correctional facility Feels Safe at Home: Yes Assistive Devices: None Review of System A 10 point ROS obtained. Pertinent positives as per HPI. Physical Exam Physical Exam: General- NAD, Left foot is cuffed to bed HEENT- anicteric sclera, missing teeth, poor dentition. Neck- supple Lung- No increased Work or breathing Abd- soft, RLQ tenderness - No suprapubic or CVA tenderness Neuro- AAO*3 Psych- Cooperative, somewhat flat affect Skin- BL knee brusing and scabs sp fall Results & Data Vital Signs (Past 12 Hours) Vital Signs Temp Pulse Pulse Resp BP BP BP 01/17/24 15:16 73 01/17/24 14:00 70 20 01/17/24 14:00 123/77 01/17/24 13:51 70 20 01/17/24 13:45 122/81 01/17/24 13:45 122/81 01/17/24 13:45 122/81 01/17/24 13:42 70 21 01/17/24 13:30 67 21 01/17/24 13:30 119/73 01/17/24 13:27 69 21 01/17/24 13:15 123/81 01/17/24 13:15 123/81 01/17/24 13:00 127/75 01/17/24 12:51 62 18 01/17/24 12:42 62 19 01/17/24 12:30 63 20 01/17/24 12:30 130/77 01/17/24 12:30 130/77 01/17/24 12:24 73 18 01/17/24 12:21 118/70 01/17/24 12:21 118/70 01/17/24 11:54 65 20 114/74 01/17/24 11:39 62 20 110/67 01/17/24 11:24 63 18 94/59 L 01/17/24 10:11 36.5 C 79 16 118/73 01/17/24 09:48 76 22 01/17/24 09:45 78 21 01/17/24 09:36 67 20 01/17/24 09:21 78 20 01/17/24 09:00 69 18 01/17/24 08:33 73 18 01/17/24 08:21 71 16 01/17/24 08:12 75 19 01/17/24 08:00 124/73 01/17/24 08:00 72 19 01/17/24 07:54 71 19 01/17/24 07:42 82 24 01/17/24 07:30 01/17/24 07:21 83 18 01/17/24 07:00 69 18 01/17/24 06:54 70 18 01/17/24 06:30 76 20 01/17/24 05:54 80 20 01/17/24 05:30 75 16 01/17/24 05:12 74 19 01/17/24 04:54 76 18 01/17/24 04:49 125/73 01/17/24 04:49 125/73 01/17/24 04:48 77 19 Pulse Ox O2 Del Method 01/17/24 15:16 01/17/24 14:00 01/17/24 14:00 01/17/24 13:51 07/26/24 13:45 01/17/24 13:45 01/17/24 13:45 01/17/24 13:42 01/17/24 13:30 01/17/24 13:30 01/17/24 13:27 01/17/24 13:15 01/17/24 13:15 01/17/24 13:00 01/17/24 12:51 97 01/17/24 12:42 98 01/17/24 12:30 99 01/17/24 12:30 01/17/24 12:30 01/17/24 12:24 96 01/17/24 12:21 01/17/24 12:21 01/17/24 11:54 98 Room Air 01/17/24 11:39 97 Room Air 01/17/24 11:24 97 Room Air 01/17/24 10:11 98 Room Air 01/17/24 09:48 01/17/24 09:45 01/17/24 09:36 01/17/24 09:21 01/17/24 09:00 01/17/24 08:33 97 01/17/24 08:21 96 01/17/24 08:12 94 01/17/24 08:00 01/17/24 08:00 01/17/24 07:54 98 01/17/24 07:42 92 01/17/24 07:30 Room Air 01/17/24 07:21 95 01/17/24 07:00 96 01/17/24 06:54 96 01/17/24 06:30 94 01/17/24 05:54 93 01/17/24 05:30 93 01/17/24 05:12 92 01/17/24 04:54 97 01/17/24 04:49 01/17/24 04:49 01/17/24 04:48 98 Laboratory Results Laboratory Results - last 48 hr 01/15/24 01/15/24 01/16/24 17:36 20:29 00:01 WBC RBC Hgb 7.4 L 7.0 L Hct 24.5 L 23.2 L MCV MCH MCHC RDW Std Deviation RDW Coeff of Lin Plt Count MPV Sodium Potassium Chloride Carbon Dioxide Anion Gap BUN Creatinine Est Cr Clr Drug Dosing Est GFR ( Amer) Est GFR (Non-Af Amer) BUN/Creatinine Ratio Glucose POC Glucose 202 H Calcium Stool Occult Bld Scrn 01/16/24 01/16/24 01/16/24 04:42 07:45 08:36 WBC 14.16 H RBC 3.13 L Hgb 7.9 L Hct 26.0 L MCV 83.1 MCH 25.2 MCHC 30.4 L RDW Std Deviation 48.9 H RDW Coeff of Lin 16.2 H Plt Count 392 MPV 9.0 L Sodium 136 Potassium 3.3 L Chloride 100 Carbon Dioxide 29 Anion Gap 7 BUN 7 Creatinine 0.50 L Est Cr Clr Drug Dosing 147.0 Est GFR ( Amer) 135.6 Est GFR (Non-Af Amer) 117.0 BUN/Creatinine Ratio 14.0 Glucose 125 H POC Glucose 165 H Calcium 7.7 L Stool Occult Bld Scrn Positive A 01/16/24 01/16/24 01/16/24 11:32 16:25 20:39 WBC RBC Hgb Hct MCV MCH MCHC RDW Std Deviation RDW Coeff of Lin Plt Count MPV Sodium Potassium Chloride Carbon Dioxide Anion Gap BUN Creatinine Est Cr Clr Drug Dosing Est GFR ( Amer) Est GFR (Non-Af Amer) BUN/Creatinine Ratio Glucose POC Glucose 192 H 105 H 99 Calcium Stool Occult Bld Scrn 01/17/24 01/17/24 01/17/24 00:23 04:39 16:10 WBC 8.62 RBC 3.02 L Hgb 7.5 L Hct 24.6 L MCV 81.5 MCH 24.8 L MCHC 30.5 L RDW Std Deviation 48.6 H RDW Coeff of Lin 16.4 H Plt Count 320 MPV 8.7 L Sodium 137 Potassium 3.1 L Chloride 98 Carbon Dioxide 33 H Anion Gap 6 BUN 7 Creatinine 0.44 L Est Cr Clr Drug Dosing 167.1 Est GFR ( Amer) 142.9 Est GFR (Non-Af Amer) 123.3 BUN/Creatinine Ratio 15.9 Glucose 96 POC Glucose 91 91 Calcium 7.4 L Stool Occult Bld Scrn Diagnostic Findings Microbiology 01/14/24 15:05 Blood Aerobic Blood Culture - Final Escherichia coli 01/14/24 15:05 Blood Anaerobic Blood Culture - Final Escherichia coli 01/14/24 12:30 Blood Aerobic Blood Culture - Preliminary No growth in Aerobic bottle after 48 hours. 01/14/24 12:30 Blood Anaerobic Blood Culture - Preliminary No growth in Anaerobic bottle after 48 hours. CXR 01/13 FINDINGS: Cardiac silhouette is normal. Scattered bilateral solid pulmonary nodules measure up to 1.4 cm within the right lung base. Right hilar/paratracheal opacity. No pneumothorax, pleural effusion or overt pulmonary edema. Bones appear grossly intact. Reverse right shoulder arthroplasty. IMPRESSION: 1. Bilateral pulmonary metastasis. 2. Right paratracheal opacity could be correlated with nonemergent follow-up chest CT to exclude lymphadenopathy. 3. Please refer to the CT abdomen and pelvis study of same day for additional findings. CTAP 01/13 IMPRESSION: 1. There is a 12.0 x 8.6 x 8.1 cm necrotic mass involving the majority of the cecum and ascending colon. This likely represents the patient's primary malignancy. 2. Extensive metastatic disease within the visualized chest, abdomen, and pelvis as described above most pronounced within the liver. 3. Subacute/healing fractures within the right posterior 10th rib and the T12-L2 superior endplates. Pathologic fractures are considered less likely but not entirely excluded. No definite suspicious osseous lesions identified. 4. Small amount of ascites. 5. No evidence for a bowel obstruction. 6. Additional findings as described above. Medications Administered Home Medications Medication Instructions Recorded Confirmed Last Taken acetaminophen 500 mg tablet 500 mg PO TID 01/14/24 01/14/24 Unknown (Tylenol Extra Strength) atorvastatin 10 mg tablet 10 mg PO HS 01/14/24 01/14/24 Unknown benztropine 2 mg tablet 2 mg PO HS 01/14/24 01/14/24 Unknown divalproex 500 mg tablet,delayed 1,000 mg PO HS 01/14/24 01/14/24 Unknown release fludrocortisone 0.1 mg tablet 0.1 mg PO DAILY 01/14/24 01/14/24 Unknown ibuprofen 400 mg tablet 400 mg PO TID PRN Pain 01/14/24 01/14/24 Unknown metformin 1,000 mg tablet 1,000 mg PO BID 01/14/24 01/14/24 Unknown perphenazine 2 mg tablet 6 mg PO HS 01/14/24 01/14/24 Unknown sertraline 100 mg tablet 200 mg PO HS 01/14/24 01/14/24 Unknown Active Medications Generic Name Dose Route Start Last Admin Trade Name Brittney PRN Reason Stop Dose Admin Acetaminophen 500 mg 01/14/24 21:00 01/17/24 14:30 Acetaminophen 500 Mg Tab PO 02/13/24 20:59 Not Given TID NABIL Atorvastatin Calcium 10 mg 01/14/24 21:00 01/16/24 20:55 Atorvastatin 10 Mg Tab PO 02/13/24 20:59 10 mg HS NABIL Administration Benztropine Mesylate 2 mg 01/14/24 21:00 01/16/24 20:56 Benztropine Mesylate 1 Mg Tab PO 02/13/24 20:59 2 mg HS NABIL Administration Divalproex Sodium 1,000 mg 01/14/24 21:00 01/16/24 20:56 Divalproex Delay Release 500 Mg Tab PO 02/13/24 20:59 1,000 mg HS NAIBL Administration Fludrocortisone Acetate 0.1 mg 01/15/24 09:00 01/17/24 14:03 Fludrocortisone Acetate 0.1 Mg Tab PO 02/14/24 08:59 0.1 mg DAILY NABIL Administration Piperacillin Sod/Tazobactam 100 mls @ 25 mls/hr 01/14/24 20:00 01/17/24 14:03 Sod 4.5 gm/ Dextrose IV 01/24/24 19:59 25 mls/hr Q8H NABIL Administration Protocol Pantoprazole Sodium 40 mg/ 10 mls @ 5 mls/min 01/16/24 21:00 01/17/24 14:03 Syringe IV 02/15/24 20:59 5 mls/min BID NABIL Administration Sodium Chloride 500 mls @ 15 mls/hr 01/17/24 11:36 01/17/24 14:44 Nss IV 01/18/24 11:35 Infused .Q24H STA Infusion Insulin Aspart 0 units 01/17/24 16:30 01/17/24 16:39 Insulin Aspart Per Unit Charge SC 02/16/24 05:59 Not Given ACHS NABIL Ondansetron HCl 4 mg 01/14/24 19:45 01/14/24 20:09 Ondansetron Inj 2 Mg/Ml 2 Ml Vial IV 02/13/24 19:44 4 mg Q6H PRN Administration Nausea And Vomiting Perphenazine 6 mg 01/14/24 21:00 01/16/24 20:57 Perphenazine 2 Mg Tab PO 02/13/24 20:59 6 mg HS NABIL Administration Sertraline HCl 200 mg 01/14/24 21:00 01/16/24 20:57 Sertraline Hcl 100 Mg Tablet PO 02/13/24 20:59 200 mg HS NABIL Administration
[2024-01-17] MEDS: metroNIDAZOLE 500 MG TAB PO SCH (18:18)
[2024-01-17] MEDS: cefTRIAXone SODIUM 2,000 MG/50 ML BAG IV SCH (18:19)
--- NOTE | 2024-01-17 22:18 | Hospitalist Progress Note ---
Date of Service January 17, 2024 Assessment & Plan (1) Metastatic colon cancer to liver: Plan: Suspected based on CT - discussed with the patient and request an oncology consult CEA pending Consult oncology to discuss options and full staging, consider palliative consult comnsult general surgery and gastro. Hemoglobin dropped but has remained over 7. consulted gastro, Upper GI and colonoscopy completed on 01/16 awaiting biopsy results. monitoring hemoglobin level. (2) Leukocytosis: Plan: Suspect related to cancer but given necrotic mass will prophylactically cover with IV Zosyn pending blood culture results Possible sepsis although no definitive infection IV lfluid bolus appropriately given and lactate resolved Empiric antibiotics with IV Zosyn Follow up blood cultures (3) Melena: Plan: Fecal occult blood ordered Monitor Hgb in AM Pantoprazole 40mg IV pending workup although suspect this is just a lower rather than upper GI bleed (4) T2DM (type 2 diabetes mellitus): Plan: Hemoglobin A1C with AM labs, unclear if this is a historical diagnosis and me tformin can potentially be discontinued with his weight loss if A1C is low and not requiring Novolog Novolog: --Goal BSG Range: Low 110 mg/dL, High 140 mg/dL --Correction Factor: 45 mg/dL/unit No carb ratio --BSGs ACHS if eating, q6h if npo (5) Hyperlipidemia: Plan: Continue atorvastatin (6) Elevated lactic acid level: Plan: Hypovolemia, resolved with IV fluids in the ER (7) Orthostatic hypotension: Plan: Prior diagnosis, likely related to his weight loss Continue fludrocortisone (8) Anemia: Plan VTE Prophylaxis - SCD, chemical deferred due to melena Diet - regular Disposition - admit to PCU Admission and Anticipated Discharge Date Admission Date: January 14, 2024 Subjective 63 yo male reports no new symptoms. Review of Systems Review of Systems: All systems reviewed & are unremarkable except as noted in HPI & below Physical Exam Constitutional: well developed; + not well nourished and no acute distress Eyes: + conjunctival abnormality (pale) ENMT: Mouth: + dry oral mucous membranes Respiratory: normal respiratory effort, lungs clear to auscultation Cardiovascular: RRR, no murmur, no edema Gastrointestinal (Abdomen): Inspection/Auscultation: abdomen normal to inspection; abdomen not distended Percussion/Palpation: abdomen soft Skin: + pallor Neurologic: moves all extremities and awake; no focal motor deficits and not confused Psychiatric: A+Ox3, euthymic affect Genitourinary: + CVA tenderness (right) Results & Data Results & Data Vital Signs (Past 12 Hours) Vital Signs Temp Pulse Pulse Resp BP BP Pulse Ox 01/17/24 19:25 36.8 C 77 18 112/72 99 01/17/24 15:16 73 01/17/24 14:00 70 20 01/17/24 14:00 123/77 01/17/24 13:51 70 20 01/17/24 13:45 122/81 01/17/24 13:45 122/81 01/17/24 13:45 122/81 01/17/24 13:42 70 21 01/17/24 13:30 67 21 01/17/24 13:30 119/73 01/17/24 13:27 69 21 01/17/24 13:15 123/81 01/17/24 13:15 123/81 01/17/24 13:00 127/75 01/17/24 12:51 62 18 97 01/17/24 12:42 62 19 98 01/17/24 12:30 63 20 99 01/17/24 12:30 130/77 01/17/24 12:30 130/77 01/17/24 12:24 73 18 96 01/17/24 12:21 118/70 01/17/24 12:21 118/70 01/17/24 11:54 65 20 114/74 98 01/17/24 11:39 62 20 110/67 97 01/17/24 11:24 63 18 94/59 L 97 O2 Del Method 01/17/24 19:25 Room Air 01/17/24 15:16 01/17/24 14:00 01/17/24 14:00 01/17/24 13:51 01/17/24 13:45 01/17/24 13:45 01/17/24 13:45 01/17/24 13:42 01/17/24 13:30 01/17/24 13:30 01/17/24 13:27 01/17/24 13:15 01/17/24 13:15 01/17/24 13:00 01/17/24 12:51 01/17/24 12:42 01/17/24 12:30 01/17/24 12:30 01/17/24 12:30 01/17/24 12:24 01/17/24 12:21 01/17/24 12:21 01/17/24 11:54 Room Air 01/17/24 11:39 Room Air 01/17/24 11:24 Room Air PG Care Time/CCT Total # of Minutes Spent Total Time Spent with Patient: Total time spent is greater than 50% in coordination of care (as documented) at patient's floor/unit and/or counseling patient: Coding Level of Care Code 40234 SUB INP/OBS CARE 2MIN Diagnoses Metastatic colon cancer to liver C18.9; C78.7 Leukocytosis D72.829 Melena K92.1 T2DM (type 2 diabetes mellitus) E11.9 Hyperlipidemia E78.5 Elevated lactic acid level R79.89 Orthostatic hypotension I95.1 Anemia D64.9
[2024-01-18 06:42] LABS: Hematocrit (blood only) 21.2 % (42.0-52.0); Hemoglobin 6.6 g/dl (14.0-18.0); Mean Corpuscular Hemoglobin 24.8 pg (25.0-34.0); Mean Corpuscular Hgb Conc 31.1 g/dL (32.0-36.0); Mean Corpuscular Volume 79.7 fL (80.0-100.0); Mean Platelet Volume 8.9 fL (9.4-12.4); Platelet Count 329 K/uL (130-400); RDW Coefficient of Variation 16.7 % (11.5-14.5); RDW Standard Deviation 48.6 fL (36.4-46.3); Red Blood Count 2.66 M/uL (4.70-6.10); White Blood Count 8.59 K/ul (4.8-10.8)
[2024-01-18 06:49] LABS: BUN Creatinine Ratio 18.2 (10-20); Calcium 7.3 mg/dl (8.6-10.3); Creatinine Clr Calc Pharmacy 176.3 ml/min; Est GFR (African American) 142.9 ml/min; Est GFR (Non-African American) 123.3 ml/min; Potassium 3.1 mmol/L (3.5-5.1)
[2024-01-18] MEDS ORDERED: SODIUM CHLORIDE 0.9% 250 ML IV PRN (07:38)
--- NOTE | 2024-01-18 22:17 | Hospitalist Progress Note ---
Date of Service January 18, 2024 Assessment & Plan (1) Metastatic colon cancer to liver: Plan: Suspected based on CT - discussed with the patient and request an oncology consult CEA pending Consult oncology to discuss options and full staging, consider palliative consult comnsult general surgery and gastro. Hemoglobin dropped but has remained over 7. consulted gastro, Upper GI and colonoscopy completed on 01/16 awaiting biopsy results. Acute blood loss anemia. Ordered 1 unit of PRBC as hemoglobin was below 7. Will continue to monitor. (2) Leukocytosis: Plan: Suspect related to cancer but given necrotic mass will prophylactically cover with IV Zosyn pending blood culture results Possible sepsis although no definitive infection IV lfluid bolus appropriately given and lactate resolved Empiric antibiotics with IV Zosyn Follow up blood cultures (3) Melena: Plan: Fecal occult blood ordered Monitor Hgb in AM Pantoprazole 40mg IV pending workup although suspect this is just a lower rather than upper GI bleed (4) T2DM (type 2 diabetes mellitus): Plan: Hemoglobin A1C with AM labs, unclear if this is a historical diagnosis and metformin can potentially be discontinued with his weight loss if A1C is low and not requiring Novolog Novolog: --Goal BSG Range: Low 110 mg/dL, High 140 mg/dL --Correction Factor: 45 mg/dL/unit No carb ratio --BSGs ACHS if eating, q6h if npo (5) Hyperlipidemia: Plan: Continue atorvastatin (6) Elevated lactic acid level: Plan: Hypovolemia, resolved with IV fluids in the ER (7) Orthostatic hypotension: Plan: Prior diagnosis, likely related to his weight loss Continue fludrocortisone (8) Anemia: Plan VTE Prophylaxis - SCD, chemical deferred due to melena Diet - regular Disposition - admit to PCU Admission and Anticipated Discharge Date Admission Date: January 14, 2024 Subjective Patient reports no new symptoms. Review of Systems Review of Systems: All systems reviewed & are unremarkable except as noted in HPI & below Physical Exam Constitutional: well developed; + not well nourished and no acute distress Eyes: + conjunctival abnormality (pale) Respiratory: normal respiratory effort, lungs clear to auscultation Cardiovascular: RRR, no murmur, no edema Gastrointestinal (Abdomen): Inspection/Auscultation: abdomen normal to inspection; abdomen not distended Percussion/Palpation: abdomen soft Skin: + pallor Neurologic: moves all extremities and awake; no focal motor deficits and not confused Psychiatric: A+Ox3, euthymic affect Genitourinary: + CVA tenderness (right) Results & Data Results & Data Vital Signs (Past 12 Hours) Vital Signs Temp Pulse Pulse Resp BP BP BP 01/18/24 19:40 36.7 C 65 18 123/74 01/18/24 15:27 36.9 C 74 18 132/79 01/18/24 11:11 36.6 C 69 17 129/85 01/18/24 11:01 36.5 C 82 18 128/82 01/18/24 10:31 36.5 C 80 18 114/78 Pulse Ox O2 Del Method 01/18/24 19:40 95 Room Air 01/18/24 15:27 94 Room Air 01/18/24 11:11 96 Room Air 01/18/24 11:01 93 01/18/24 10:31 PG Care Time/CCT Total # of Minutes Spent Total Time Spent with Patient: Total time spent is greater than 50% in coordination of care (as documented) at patient's floor/unit and/or counseling patient: Coding Level of Care Code 26910 SUB INP/OBS CARE 2/35MIN Diagnoses Metastatic colon cancer to liver C18.9; C78.7 Leukocytosis D72.829 Melena K92.1 T2DM (type 2 diabetes mellitus) E11.9 Hyperlipidemia E78.5 Elevated lactic acid level R79.89 Orthostatic hypotension I95.1 Anemia D64.9
[2024-01-18 23:13] LABS: Hematocrit (blood only) 27.5 % (42.0-52.0); Hemoglobin 8.6 g/dl (14.0-18.0)
[2024-01-19 07:00] LABS: Hematocrit (blood only) 28.2 % (42.0-52.0); Mean Corpuscular Hemoglobin 25.8 pg (25.0-34.0); Mean Corpuscular Hgb Conc 31.9 g/dL (32.0-36.0); Mean Corpuscular Volume 80.8 fL (80.0-100.0); Mean Platelet Volume 8.5 fL (9.4-12.4); Platelet Count 312 K/uL (130-400); RDW Coefficient of Variation 15.9 % (11.5-14.5); RDW Standard Deviation 46.3 fL (36.4-46.3); Red Blood Count 3.49 M/uL (4.70-6.10); White Blood Count 11.24 K/ul (4.8-10.8)
[2024-01-19 07:41] LABS: Calcium 7.3 mg/dl (8.6-10.3); Creatinine Clr Calc Pharmacy 193.9 ml/min; Est GFR (African American) 148.6 ml/min; Est GFR (Non-African American) 128.2 ml/min
--- NOTE | 2024-01-19 22:33 | Hospitalist Progress Note ---
Date of Service January 19, 2024 Assessment & Plan (1) Metastatic colon cancer to liver: Plan: Suspected based on CT - discussed with the patient and request an oncology consult CEA >850 Consult oncology to discuss options and full staging, consider palliative consult consult general surgery and gastro. consulted gastro, Upper GI and colonoscopy completed on 01/16 awaiting biopsy results. Acute blood loss anemia. Ordered 1 unit of PRBC as hemoglobin was below 7. Hemoglobin now above 9. (2) Leukocytosis: Plan: Suspect related to cancer but given necrotic mass will prophylactically cover with IV Zosyn pending blood culture results Possible sepsis although no definitive infection IV lfluid bolus appropriately given and lactate resolved Empiric antibiotics with IV Zosyn Follow up blood cultures (3) Melena: Plan: Fecal occult blood ordered Monitor Hgb in AM Pantoprazole 40mg IV pending workup although suspect this is just a lower rather than upper GI bleed (4) T2DM (type 2 diabetes mellitus): Plan: Hemoglobin A1C with AM labs, unclear if this is a historical diagnosis and metformin can potentially be discontinued with his weight loss if A1C is low and not requiring Novolog Novolog: --Goal BSG Range: Low 110 mg/dL, High 140 mg/dL --Correction Factor: 45 mg/dL/unit No carb ratio --BSGs ACHS if eating, q6h if npo (5) Hyperlipidemia: Plan: Continue atorvastatin (6) Elevated lactic acid level: Plan: Hypovolemia, resolved with IV fluids in the ER (7) Orthostatic hypotension: Plan: Prior diagnosis, likely related to his weight loss Continue fludrocortisone (8) Anemia: Plan VTE Prophylaxis - SCD, chemical deferred due to melena Diet - regular Disposition - admit to PCU Admission and Anticipated Discharge Date Admission Date: January 14, 2024 Subjective Patient reports no new symptoms, Review of Systems Review of Systems: All systems reviewed & are unremarkable except as noted in HPI & below Physical Exam Constitutional: well developed; + not well nourished and no acute distress Eyes: + conjunctival abnormality (pale) ENMT: Mouth: + dry oral mucous membranes Respiratory: normal respiratory effort, lungs clear to auscultation Cardiovascular: RRR, no murmur, no edema Gastrointestinal (Abdomen): Inspection/Auscultation: abdomen normal to inspection; abdomen not distended Percussion/Palpation: abdomen soft Skin: + pallor Neurologic: moves all extremities and awake; no focal motor deficits and not confused Psychiatric: A+Ox3, euthymic affect Genitourinary: + CVA tenderness (right) Results & Data Results & Data Vital Signs (Past 12 Hours) Vital Signs Temp Pulse Resp BP BP Pulse Ox O2 Del Method 01/19/24 19:31 36.8 C 70 18 126/80 94 Room Air 01/19/24 15:22 36.5 C 72 16 123/76 95 Room Air 01/19/24 11:45 37.1 C 73 20 131/78 96 Room Air PG Care Time/CCT Total # of Minutes Spent Total Time Spent with Patient: Total time spent is greater than 50% in coordination of care (as documented) at patient's floor/unit and/or counseling patient: Coding Level of Care Code 50430 SUB INP/OBS CARE 2/35MIN Diagnoses Metastatic colon cancer to liver C18.9; C78.7 Leukocytosis D72.829 Melena K92.1 T2DM (type 2 diabetes mellitus) E11.9 Hyperlipidemia E78.5 Elevated lactic acid level R79.89 Orthostatic hypotension I95.1 Anemia D64.9
[2024-01-20 06:45] LABS: Hematocrit (blood only) 29.4 % (42.0-52.0); Hemoglobin 9.3 g/dl (14.0-18.0); Mean Corpuscular Hemoglobin 25.5 pg (25.0-34.0); Mean Corpuscular Hgb Conc 31.6 g/dL (32.0-36.0); Mean Corpuscular Volume 80.5 fL (80.0-100.0); Mean Platelet Volume 8.5 fL (9.4-12.4); Platelet Count 292 K/uL (130-400); RDW Coefficient of Variation 16.1 % (11.5-14.5); RDW Standard Deviation 46.9 fL (36.4-46.3); Red Blood Count 3.65 M/uL (4.70-6.10); White Blood Count 10.41 K/ul (4.8-10.8)
[2024-01-20 07:02] LABS: BUN Creatinine Ratio 18.6 (10-20); Calcium 7.3 mg/dl (8.6-10.3); Creatinine Clr Calc Pharmacy 180.4 ml/min; Est GFR (African American) 144.2 ml/min; Est GFR (Non-African American) 124.4 ml/min; Potassium 3.1 mmol/L (3.5-5.1)
--- NOTE | 2024-01-20 22:24 | Hospitalist Progress Note ---
Date of Service January 20, 2024 Assessment & Plan (1) Metastatic colon cancer to liver: Plan: Suspected based on CT - discussed with the patient and request an oncology consult CEA >850 Consult oncology to discuss options and full staging, consider palliative consult consulted gastro, Upper GI and colonoscopy completed on 01/16 awaiting biopsy results. Acute blood loss anemia. transfused 1 unit of PRBC as hemoglobin was below 7 on 01/17 Hemoglobin now above 9. advance diet Mild protein calorie malnutrition Patient with significant weight loss: 34% loss of body weight likely due to malignancy (2) Leukocytosis: Plan: E. coli bacteremia/ sepsis Suspect related to cancer but given necrotic mass appreciate input from ID: Ceftriaxone 2 g IV q 24 hours and Flagyl 500 mg p.o. every8 hours -If he continues to clinically improve, can switch to Augmentin (Amoxicillin- CLAVulanate) 875/125 mg PO Q 8 hours ( TID) or if his insurance covers amoxicillinclavulanate XR 2 g p.o. twice daily for a total of 14 d of abx. EOT 01/28/24 (3) Melena: Plan: Fecal occult blood ordered Monitor Hgb in AM Pantoprazole 40mg IV pending workup although suspect this is just a lower rather than upper GI bleed (4) T2DM (type 2 diabetes mellitus): Plan: Hemoglobin A1C with AM labs, unclear if this is a historical diagnosis and metformin can potentially be discontinued with his weight loss if A1C is low and not requiring Novolog Novolog: --Goal BSG Range: Low 110 mg/dL, High 140 mg/dL --Correction Factor: 45 mg/dL/unit No carb ratio --BSGs ACHS if eating, q6h if npo (5) Hyperlipidemia: Plan: Continue atorvastatin (6) Elevated lactic acid level: Plan: Hypovolemia, resolved with IV fluids in the ER (7) Orthostatic hypotension: Plan: Prior diagnosis, likely related to his weight loss Continue fludrocortisone (8) Anemia: Plan VTE Prophylaxis - SCD, chemical deferred due to melena Disposition - admit to PCU Admission and Anticipated Discharge Date Admission Date: January 14, 2024 Subjective Patient reports tolerating his diet. Review of Systems Review of Systems: All systems reviewed & are unremarkable except as noted in HPI & below Physical Exam Constitutional: well developed; + not well nourished and no acute distress Eyes: + conjunctival abnormality (pale) Respiratory: normal respiratory effort, lungs clear to auscultation Cardiovascular: RRR, no murmur, no edema Gastrointestinal (Abdomen): Inspection/Auscultation: abdomen normal to inspection; abdomen not distended Percussion/Palpation: abdomen soft Skin: + pallor Neurologic: moves all extremities and awake; no focal motor deficits and not confused Psychiatric: A+Ox3, euthymic affect Genitourinary: + CVA tenderness (right) Results & Data Results & Data Vital Signs (Past 12 Hours) Vital Signs Temp Pulse Pulse Resp BP BP Pulse Ox 01/20/24 19:43 36.6 C 76 18 119/80 96 01/20/24 19:02 84 01/20/24 18:27 01/20/24 18:25 36.7 C 83 16 124/80 95 01/20/24 14:59 85 01/20/24 14:31 36.9 C 80 18 113/75 95 01/20/24 11:20 36.7 C 78 18 117/77 95 O2 Del Method 01/20/24 19:43 Room Air 01/20/24 19:02 01/20/24 18:27 Room Air 01/20/24 18:25 Room Air 01/20/24 14:59 01/20/24 14:31 Room Air 01/20/24 11:20 Room Air PG Care Time/CCT Total # of Minutes Spent Total Time Spent with Patient: Total time spent is greater than 50% in coordination of care (as documented) at patient's floor/unit and/or counseling patient: Coding Level of Care Code 31456 SUB INP/OBS CARE 2/35MIN Diagnoses Metastatic colon cancer to liver C18.9; C78.7 Leukocytosis D72.829 Melena K92.1 T2DM (type 2 diabetes mellitus) E11.9 Hyperlipidemia E78.5 Elevated lactic acid level R79.89 Orthostatic hypotension I95.1 Anemia D64.9
[2024-01-21 07:47] LABS: Hematocrit (blood only) 28.7 % (42.0-52.0); Hemoglobin 8.9 g/dl (14.0-18.0); Mean Corpuscular Hemoglobin 25.3 pg (25.0-34.0); Mean Corpuscular Volume 81.5 fL (80.0-100.0); Mean Platelet Volume 8.1 fL (9.4-12.4); Platelet Count 252 K/uL (130-400); RDW Coefficient of Variation 16.5 % (11.5-14.5); RDW Standard Deviation 48.7 fL (36.4-46.3); Red Blood Count 3.52 M/uL (4.70-6.10); White Blood Count 11.33 K/ul (4.8-10.8)
[2024-01-21 08:22] LABS: Calcium 7.2 mg/dl (8.6-10.3); Creatinine Clr Calc Pharmacy 184.7 ml/min; Est GFR (African American) 145.6 ml/min; Est GFR (Non-African American) 125.7 ml/min; Potassium 2.8 mmol/L (3.5-5.1)
--- NOTE | 2024-01-21 08:50 | Hospitalist Progress Note ---
Date of Service January 21, 2024 Assessment & Plan (1) Metastatic colon cancer to liver: Plan: CT abdomen pelvis shows a 12 x 8 x 8 necrotic mass involving the cecum and ascending colon. CEA >850, pending CT of brain Consult oncology to discuss options and full staging, consider palliative consult consulted gastro, Upper GI and colonoscopy completed on 01/16 Well differentiated invasive adenocarcinoma on biopsy results. Acute blood loss anemia. Melena transfused 1 unit of PRBC as hemoglobin was below 7 on 01/17 Hemoglobin stable near 9 advance diet Mild protein calorie malnutrition Patient with significant weight loss: 34% loss of body weight likely due to malignancy (2) Leukocytosis: Plan: E. coli bacteremia/ sepsis confirmed on blood culture Suspect related to cancer but given necrotic mass appreciate input from ID: Ceftriaxone 2 g IV q 24 hours and Flagyl 500 mg p.o. every8 hours (3) T2DM (type 2 diabetes mellitus): Plan: Hemoglobin A1C with AM labs, unclear if this is a historical diagnosis and metformin can potentially be discontinued with his weight loss if A1C is low and not requiring Novolog Novolog: --Goal BSG Range: Low 110 mg/dL, High 140 mg/dL --Correction Factor: 45 mg/dL/unit No carb ratio --BSGs ACHS if eating, q6h if npo (4) Hyperlipidemia: Plan: Continue atorvastatin (5) Orthostatic hypotension: Plan: Prior diagnosis, likely related to his weight loss Continue fludrocortisone Plan VTE Prophylaxis - SCD, chemical deferred due to melena Prognosis extremely poor for this gentleman Admission and Anticipated Discharge Date Admission Date: January 14, 2024 Subjective Patient was seen in the presence of the guards. Patient was informed of his diagnosis of metastatic adenocarcinoma. Patient had questions about whether to treat this or just live with it. Will reengage with oncology to provide additional information. Currently is having right-sided abdominal pain which is with the bulk of his original disease and metastatic disease to his liver are located Physical Exam Physical Exam: Awake alert and appropriate. Patient appears in no distress. Patient is a slightly protuberant abdomen with normal active bowel sounds soft and tender with some guarding on the right side. No rebound or acute abdomen noted Results & Data Results & Data Vital Signs (Past 12 Hours) Vital Signs Temp Pulse Pulse Pulse Resp BP BP 01/21/24 07:42 98.1 F 75 16 119/76 01/21/24 05:04 74 01/21/24 02:30 97.5 F L 76 18 109/71 01/20/24 22:24 98.1 F 81 18 120/76 01/20/24 21:52 80 Pulse Ox O2 Del Method 01/21/24 07:42 96 Room Air 01/21/24 05:04 01/21/24 02:30 93 Room Air 01/20/24 22:24 95 Room Air 01/20/24 21:52 Laboratory Results Reviewed CBC reviewed chemistry PG Care Time/CCT Total # of Minutes Spent Total Time Spent with Patient: Total time spent is greater than 50% in coordination of care (as documented) at patient's floor/unit and/or counseling patient: Coding Level of Care Code 89577 SUB INP/OBS CARE 3/50MIN Diagnoses Metastatic colon cancer to liver C18.9; C78.7 Leukocytosis D72.829 T2DM (type 2 diabetes mellitus) E11.9 Hyperlipidemia E78.5 Orthostatic hypotension I95.1
[2024-01-21] MEDS: MAGNESIUM SULFATE / D5W 1 GM/100 ML BAG IV ONE (09:02)
[2024-01-21] MEDS: POTASSIUM CHLORIDE / WTR 10 MEQ/100 ML PLCT IV SCH (09:03)
[2024-01-21] MEDS: OPTIRAY 320 100ml IV ONE (17:39)
--- NOTE | 2024-01-21 18:00 | CT Scan Report ---
CT head/brain wo/w con CT DOSE: 995.76 mGy.cm CLINICAL HISTORY: Evaluation metastatic disease TECHNIQUE: Multiaxial CT images of the head were performed both before and after the intravenous admi nistration of contrast. A dose lowering technique was utilized adhering to the principles of ALARA. COMPARISON STUDY: None. FINDINGS: The paranasal sinuses and mastoid air cells are clear. The calvarium and skull base are int act. No osseous lesions identified. The ventricles and sulci demonstrate mild age-related involutiona l changes. Mild curvature the white matter T2 hyperintensity suggest microvascular ischemic change. T here is no mass, hematoma, midline shift, or acute infarct. Postcontrast sequences show no areas of a bnormal enhancement. There is an old lacunar infarct within the left basal ganglia. IMPRESSION: No evidence for intracranial metastatic disease. ACT 112: Negative or not required by law. Electronically signed by: Sherwin Dickerson M.D. 01/21/2024 5:58 PM
--- NOTE | 2024-01-22 07:29 | Hospitalist Progress Note ---
Date of Service January 22, 2024 Assessment & Plan (1) Metastatic colon cancer to liver: Plan: CT abdomen pelvis shows a 12 x 8 x 8 necrotic mass involving the cecum and ascending colon. CEA >850, CT of brain with and without contrast did not show any intracranial metastasis Consult oncology to discuss options and full staging, consider palliative consult consulted gastro, Upper GI and colonoscopy completed on 01/16 Well differentiated invasive adenocarcinoma on biopsy results. Acute blood loss anemia. Melena transfused 1 unit of PRBC as hemoglobin was below 7 on 01/17 Hemoglobin stable near 9 Tolerating advanced diet Mild protein calorie malnutrition Patient with significant weight loss: 34% loss of body weight likely due to malignancy (2) Leukocytosis: Plan: E. coli bacteremia/ sepsis confirmed on blood culture Suspect related to cancer but given necrotic mass appreciate input from ID: Ceftriaxone 2 g IV q 24 hours and Flagyl 500 mg p.o. every8 hours as dose of antibiotic therapy should be January 27/2024 (3) T2DM (type 2 diabetes mellitus): Plan: Hemoglobin A1C with AM labs, unclear if this is a historical diagnosis and metformin can potentially be discontinued with his weight loss if A1C is low and not requiring Novolog Novolog: --Goal BSG Range: Low 110 mg/dL, High 140 mg/dL --Correction Factor: 45 mg/dL/unit No carb ratio --BSGs ACHS if eating, q6h if npo (4) Hyperlipidemia: Plan: Continue atorvastatin (5) Orthostatic hypotension: Plan: Prior diagnosis, likely related to his weight loss Continue fludrocortisone Plan VTE Prophylaxis - SCD, chemical deferred due to melena Prognosis extremely poor for this gentleman is agreeable to palliative chemothe rapy which be performed as an outpatient [facility] Admission and Anticipated Discharge Date Admission Date: January 14, 2024 Subjective Patient seems slightly insistent he is discussing his cancer care with Dr. Wang. Patient will have outpatient chemotherapy. Patient however does have some hypokalemia and will need his electrolytes repleted before he [facility] back to the shelter Physical Exam Physical Exam: Awake alert and appropriate. Patient appears in no distress. Patient is a with normal active bowel sounds soft and tender with some guarding on the right side. No rebound or acute abdomen noted Results & Data Results & Data Vital Signs (Past 12 Hours) Vital Signs Temp Pulse Pulse Resp BP Pulse Ox O2 Del Method 01/22/24 04:19 98.6 F 77 20 123/78 95 Room Air 01/22/24 00:32 80 01/21/24 23:26 98.2 F 77 20 128/78 94 Room Air 01/21/24 21:36 Room Air 01/21/24 19:54 99.0 F 83 20 121/79 95 Room Air Laboratory Results Reviewed chemistry augmented hypokalemia Reviewed magnesium ordered additional magnesium mild protein calorie malnutrition noted with a low albumin and total protein. PG Care Time/CCT Total # of Minutes Spent Total Time Spent with Patient: Total time spent is greater than 50% in coordination of care (as documented) at patient's floor/unit and/or counseling patient: Coding Level of Care Code 62113 SUB INP/OBS CARE 2MIN Diagnoses Metastatic colon cancer to liver C18.9; C78.7 Leukocytosis D72.829 T2DM (type 2 diabetes mellitus) E11.9 Hyperlipidemia E78.5 Orthostatic hypotension I95.1
[2024-01-22 07:56] LABS: Albumin Level 1.9 gm/dl (3.4-5.0); Bilirubin,Total 0.3 mg/dl (0.2-1.0); Calcium 7.3 mg/dl (8.6-10.3); Magnesium 1.7 mg/dl (1.7-2.4)
[2024-01-22 08:02] LABS: Albumin Globulin Ratio 0.5 (0.9-2); BUN Creatinine Ratio 18.9 (10-20); Creatinine Clr Calc Pharmacy 146.4 ml/min; Est GFR (African American) 132.4 ml/min; Est GFR (Non-African American) 114.2 ml/min; Globulin 3.6 gm/dl (2.5-4.0); Total Protein 5.5 gm/dl (6.0-8.3)
--- NOTE | 2024-01-22 08:26 | Hematology/Oncology Prog Note ---
Date of Service January 22, 2024 Assessment & Plan (1) Metastatic colon cancer to liver: Plan: Had a lengthy discussion with the patient in the presence of the senior care staff. He does want treatment for metastatic colorectal cancer. Explained to the patient that only treatment at this point will be palliative systemic chemotherapy as the cancer has spread from the colon to the liver. This can be initiated on an out patient basis once discharged. Will facilitate outpatient follow up and initiation of treamtent. Plan Oncology office staff informed about patient's possible discharge soon. Arrangements made for outpatient follow up and cancer care. Admission and Anticipated Discharge Date Admission Date: January 14, 2024 Subjective Patient seen on the floor today in the presence of the senior care gaurds. Patient does not report any significant issues. Denies any pain and has been eating and drinking well. He tells me he wants treatment for cancer. Review of Systems Review of Systems: All systems reviewed & are unremarkable except as noted in HPI & below Constitutional: as per Subjective / HPI Eyes: as per Subjective / HPI Ear, Nose, Mouth, Throat: as per Subjective / HPI Respiratory: as per Subjective / HPI Cardiovascular: as per Subjective / HPI Gastrointestinal: as per Subjective / HPI Genitourinary: + as per Subjective / HPI Musculoskeletal: as per Subjective / HPI Integumentary: as per Subjective / HPI Neurologic: as per Subjective / HPI Psychiatric: as per Subjective / HPI Endocrine: as per Subjective / HPI Hematologic / Lymphatic: as per Subjective / HPI Allergy / Immunological: as per Subjective / HPI Physical Exam Constitutional: WD/WN, vitals as above Eyes: PERRL, conjunctivae normal, anicteric sclerae ENMT: external ear and nose normal, oropharynx normal Neck: trachea midline, no thyromegaly Respiratory: normal respiratory effort, lungs clear to auscultation Cardiovascular: RRR, no murmur, no edema Gastrointestinal (Abdomen): normal bowel sounds, soft, nontender, no hepatosplenomegaly Musculoskeletal: no cyanosis or clubbing, extremities motor strength 5/5 Skin: no rashes, warm and dry Neurologic: patellar DTR's 2+ bilat, sensation intact Psychiatric: A+Ox3, euthymic affect Genitourinary: no testicular masses, no penis abnormality Results & Data Vital Signs (Past 12 Hours) Vital Signs Temp Pulse Pulse Resp BP Pulse Ox O2 Del Method 07/31/24 07:47 36.8 C 83 18 115/68 94 Room Air 01/22/24 04:19 37.0 C 77 20 123/78 95 Room Air 01/22/24 00:32 80 01/21/24 23:26 36.8 C 77 20 128/78 94 Room Air 01/21/24 21:36 Room Air
[2024-01-22] MEDS: MAGNESIUM SULFATE / D5W 1 GM/100 ML BAG IV ONE (14:30)
[2024-01-22] MEDS: POTASSIUM CHLORIDE / WTR 10 MEQ/100 ML PLCT IV SCH (14:30)
[2024-01-22] MEDS: oxyCODONE HCL IR 5 MG TAB (IMMEDIATE RELEASE) PO PRN (21:04)
[2024-01-22] MEDS: POTASSIUM CHLORIDE CRTAB 20 MEQ TABCR PO SCH (21:09)
[2024-01-23 08:37] LABS: Hematocrit (blood only) 27.7 % (42.0-52.0); Hemoglobin 8.6 g/dl (14.0-18.0); Mean Corpuscular Hemoglobin 25.7 pg (25.0-34.0); Mean Corpuscular Volume 82.7 fL (80.0-100.0); Mean Platelet Volume 8.4 fL (9.4-12.4); Platelet Count 249 K/uL (130-400); RDW Coefficient of Variation 17.6 % (11.5-14.5); RDW Standard Deviation 51.4 fL (36.4-46.3); Red Blood Count 3.35 M/uL (4.70-6.10)
[2024-01-23 08:59] LABS: BUN Creatinine Ratio 28.6 (10-20); Calcium 7.2 mg/dl (8.6-10.3); Creatinine Clr Calc Pharmacy 184.7 ml/min; Est GFR (African American) 145.6 ml/min; Est GFR (Non-African American) 125.7 ml/min; Potassium 3.5 mmol/L (3.5-5.1)
--- NOTE | 2024-01-23 16:58 | Discharge Summary ---
Discharge Summary Date of Service January 23, 2024 Principal Dx & Hospital Course #1 = Principal Diagnosis (1) Metastatic colon cancer to liver: CT abdomen pelvis shows a 12 x 8 x 8 necrotic mass involving the cecum and ascending colon. mets to liver and bone CEA >850, CT of brain with and without contrast did not show any intracranial metastasis Consult oncology to discuss options and full staging, considering palliative chemo as outpt consulted gastro, Upper GI and colonoscopy completed on 01/16 Well differentiated invasive adenocarcinoma on biopsy results. Acute blood loss anemia. Melena transfused 1 unit of PRBC Hemoglobin stable near 9 Tolerating advanced diet Mild protein calorie malnutrition Patient with significant weight loss: 34% loss of body weight likely due to malignancy (2) Leukocytosis: E. coli bacteremia/ sepsis confirmed on blood culture Suspect related to cancer but given necrotic mass appreciate input from ID: Ceftriaxone 2 g IV q 24 hours and Flagyl 500 mg p.o. every8 hours as dose (3) T2DM (type 2 diabetes mellitus): Hemoglobin A1C 6.3 resume metformin cautiously at discharge (4) Hyperlipidemia: Continue atorvastatin (5) Orthostatic hypotension: Prior diagnosis, likely related to his weight loss Continue fludrocortisone Plan Prognosis extremely poor for this gentleman is agreeable to palliative chemotherapy which be performed as an outpatient through [facility] Notes For Next Care Provider eval need for metformin and also progressive liver disease given metastatic burdeon ammonia checked at ma was normal prognosis is very poor Admission HPI Per Admitting Provider Stephania Samson is a 63 year old male who presents to the ER with back pain. He reports 3 days of central back pain, non-radiating, severity 6/10, so bad he is unable to sleep, worse with any movement. He notes only mild back pain chronically but nothing like the last few days. Associated right lower quadrant abdominal pain although this has been going on for longer around the last 2 weeks. No change in bowel movements although he notes the color has been black for the last 5 days. No nausea, vomiting, fever or chills. Over the last year he reports weight loss from 220lb to 144lb. He notes his appetite has been fine with no dysphagia or odynophagia. Urine has been dark but otherwise no urinary symptoms. He has ongoing exertional dizziness for the last year with a diagnosis of orthostatic hypotension for which he is on fludrocortisone. Discharge Exam pt is sleepy but awake pain is controlled, prognosis is poor, poor 6 month survival predicted Updated Medication List Medication Instructions Recorded Confirmed Type acetaminophen 500 mg tablet 500 mg PO TID 01/14/24 01/14/24 History (Tylenol Extra Strength) benztropine 2 mg tablet 2 mg PO HS 01/14/24 01/14/24 History divalproex 500 mg tablet,delayed 1,000 mg PO HS 01/14/24 01/14/24 History release fludrocortisone 0.1 mg tablet 0.1 mg PO DAILY 01/14/24 01/14/24 History metformin 1,000 mg tablet 1,000 mg PO BID 01/14/24 01/14/24 History perphenazine 2 mg tablet 6 mg PO HS 01/14/24 01/14/24 History sertraline 100 mg tablet 200 mg PO HS 01/14/24 01/14/24 History ciprofloxacin HCl 500 mg tablet 500 mg PO BID #14 tabs 01/23/24 Rx (Cipro) metronidazole 500 mg tablet 500 mg PO Q8H #21 tabs 01/23/24 Rx oxycodone 5 mg tablet 10 mg (2 x 5 mg) PO Q4H PRN pain 01/23/24 Rx #10 tabs Hospital Stay Data Consultations 01/14/24 16:25 ED Decision to Admit Stat 01/14/24 18:11 Consult Oncology Routine 01/15/24 17:19 Consult Gastroenterology Routine 01/17/24 12:44 Consult Infectious Diseases Routine Procedures Performed Operation Date: 01/17/24 16:30 Actual Procedures p Esophagogastroduodenoscopy - Paco Tripp MD s Colonoscopy Biopsy Cytology - Paco Tripp MD Diagnostic Imagining Performed 01/14/24 13:25 CT Abd and Pelvis [CT abd pelvis IV con only] Stat 01/21/24 17:14 CT head/brain wo/w con Routine Pending Results Patient Have Any Pending Studies at Discharge: No Discharge Instructions Given to Patient (Per Discharging Provider) please eval the pts anemia as he is at risk for ongoing blood loss due to large colon mass due to the necrosis of the mass recommending antibiotics cipro/flagyl for at least another week due to the gram negative bacteremia [facility] will arrange for outpt chemotherapy, which will be palliative, can consider palliative consult, given his advanced disease, palliative chemo will prolongue his life but likely will not improve the quality of his life please watch liver function as many liver metastasis and may need to stop metformin and consider other agent to control blood glucose Total Time Total Time Spent Total Time Spent (In Minutes): It required greater than 30 minutes to prepare this patient for discharge. Coding Level of Care Code 04099 INP/OBS DISCH >30 MIN Diagnoses Metastatic colon cancer to liver C18.9; C78.7 Leukocytosis D72.829 T2DM (type 2 diabetes mellitus) E11.9 Hyperlipidemia E78.5 Orthostatic hypotension I95.1
== END 2024-01-23 17:18 | DRG 374 ==
LOC: ED 12:08 → 1E 16:29 → SUATTDRO 16:29 → 1E 17:35 → 2S 01-17 14:37 → 2W 01-20 19:01

== ENCOUNTER 2024-02-10 00:41 | Inpatient (IN) ==
[2024-02-10] MEDS: HYDROCORTISONE SOD SUCCINATE 100 MG/2 ML VIAL IV STA (00:58)
[2024-02-10] MEDS: SODIUM CHLORIDE 0.9% 1,000 ML IV ONE ×2 (01:01→02:22)
[2024-02-10] MEDS: PIPERACILLIN/TAZOBACTAM 4.5 GM/100 ML BAG IV ONE (01:01)
[2024-02-10 01:54] LABS: Basophils # (auto) 0.02 K/uL (0.00-0.20); Basophils % (auto) 0.1 %; Eosinophils # (auto) 0.01 K/uL (0.00-0.50); Eosinophils % (auto) 0.1 %; Hematocrit (blood only) 27.1 % (42.0-52.0); Hemoglobin 7.7 g/dl (14.0-18.0); Immature Granulocytes # (auto) 0.11 K/uL (0.01-0.20); Immature Granulocytes % (auto) 0.6 %; Lymphocytes # (auto) 1.06 K/uL (1.20-3.40); Lymphocytes % (auto) 6.2 %; Mean Corpuscular Hemoglobin 26.4 pg (25.0-34.0); Mean Corpuscular Hgb Conc 28.4 g/dL (32.0-36.0); Mean Corpuscular Volume 92.8 fL (80.0-100.0); Mean Platelet Volume 9.9 fL (9.4-12.4); Monocytes # (auto) 0.54 K/uL (0.11-0.59); Monocytes % (auto) 3.2 %; Neutrophils # (auto) 15.23 K/uL (1.40-6.50); Neutrophils % (auto) 89.8 %; Nucleated RBC # (auto) 0.07 K/uL (0.00-0.12); Nucleated RBC % (auto) 0.4 %; Platelet Count 240 K/uL (130-400); RDW Coefficient of Variation 25.3 % (11.5-14.5); RDW Standard Deviation 81.9 fL (36.4-46.3); Red Blood Count 2.92 M/uL (4.70-6.10); White Blood Count 16.97 K/ul (4.8-10.8)
[2024-02-10 02:06] LABS: BUN Creatinine Ratio 27.4 (10-20); Bilirubin Direct 0.5 mg/dl (0-0.2); Bilirubin,Total 0.8 mg/dl (0.2-1.0); Calcium 7.2 mg/dl (8.6-10.3); Creatinine Clr Calc Pharmacy 66.4 ml/min; Est GFR (African American) 80.9 ml/min; Est GFR (Non-African American) 69.8 ml/min; Magnesium 2.2 mg/dl (1.7-2.4); Potassium 5.3 mmol/L (3.5-5.1)
[2024-02-10 02:14] LABS: Troponin I High Sensitivity 109.7 pg/ml (0-20)
[2024-02-10 02:24] LABS: Anisocytosis Present; Hypochromasia Present; Polychromasia 1+; Target Cells 2+
--- NOTE | 2024-02-10 02:24 | History & Physical Report ---
Date of Service February 10, 2024 Assessment & Plan (1) Sepsis: Plan: Sepsis present on admission. Patient with fever, tachycardia, tachypnea and leukocytosis (WBC=16.97), Elevated lactate=5, Procalcitonin is pending. Likely source is pulmonary, also to consider intra-abdominal given history of metastatic colon cancer. Blood pressure is acceptable. -Admit to medical with telemetry -Maintain BiPAP as needed -Check BNP -Follow cultures - blood sent from ER -Empiric antibiotic coverage with Zosyn -Plasmalyte at 125mL/hr x 2L -Repeat lactate pending -MRSA nares pending -Tylenol as needed for fever -Toradol as needed for fever -Ice packs if fever continues despite medication -Zofran as needed (2) Acute hypoxic respiratory failure: Plan: Likely secondary to pneumonia. Patient with improved saturations on BiPAP -Maintain BiPAP, wean as tolerated -Zosyn for possible PNA -Albuterol PRN (3) Encephalopathy: Plan: In setting of PNA, sepsis -Frequent orientation -Treatment of underlying conditions as above (4) T2DM (type 2 diabetes mellitus): Plan: Chronic. -Hold Metformin -ISS (5) Metastatic colon cancer to liver: Plan: Patient is not currently undergoing treatment. He has been on Ciprofloxacin and Flagyl as an outpatient Plan Schizophrenia -Continue Cogentin -Continue Divalproex -Continue Perphenazine -Continue Sertraline History of Present Illness Chief Complaint: respiratory distress, acute hypoxic respiratory failure and metabolic encepha lopathy - present on admission [facility] a 63yo male with history of HTN, HLP, DM and metastatic colon cancer presenting with shortness of breath, acute hypoxic respiratory failure and metabolic encephalopathy. Patient was recently hospitalized at [facility] from 01/14/24 - 01/23/24. Found to have a 12 x 8 x 8 necrotic mass of the cecum and ascending colon - biopsy positive for well differentiated adenocarcinoma. Also with E. coli bacteremia thought to be secondary to underlying malignancy. Patient was discharged - did not undergo chemotherapy. Encephalopathic on exam - unable to provide history. Per discussion with CO's and chart review - patient has been declining over the last two days with worsening shortness of breath. Today he developed worsening shortness of breath and hypoxia. [facility] he was tachycardic, tachypneic, hypoxic. He was noted to be 79% on supplemental O2 21L [facility]. Patient febrile, tachycardic, tachypneic and altered in the ER. He was placed on BiPAP with very slight improvement in his mental status. He is unable to provide history or ROS. ER Course: Pre-hospital 300mL ER - Hydrocortisone 100mg IV Zosyn 4.5gm NSS x 2L then at 150mL/hr Allergies Allergy/AdvReac Type Severity Reaction Status Date / Time No Known Allergies Allergy Unverified 02/10/24 01:58 Home Medications Medication Instructions Recorded Confirmed Type acetaminophen 500 mg tablet 500 mg PO TID 01/14/24 02/10/24 History (Tylenol Extra Strength) benztropine 2 mg tablet 2 mg PO HS 01/14/24 02/10/24 History divalproex 500 mg tablet,delayed 1,000 mg PO HS 01/14/24 02/10/24 History release metformin 1,000 mg tablet 1,000 mg PO BID 01/14/24 02/10/24 History perphenazine 2 mg tablet 6 mg PO HS 01/14/24 02/10/24 History sertraline 100 mg tablet 200 mg PO HS 01/14/24 02/10/24 History ciprofloxacin HCl 500 mg tablet 500 mg PO BID #14 tabs 01/23/24 02/10/24 Rx (Cipro) metronidazole 500 mg tablet 500 mg PO Q8H #21 tabs 01/23/24 02/10/24 Rx furosemide 20 mg tablet 20 mg PO DAILY 02/10/24 02/10/24 History ondansetron HCl 8 mg tablet 8 mg PO TID PRN Nausea And Vomiting 02/10/24 02/10/24 History oxycodone 5 mg tablet 5 mg PO QID PRN pain 02/10/24 02/10/24 History Past Med/Surg History Problem List (Updated 02/10/24 @ 03:22 by Antonia Gordon DO) Encephalopathy Acute hypoxic respiratory failure Sepsis E coli bacteremia Abnormal CT scan, colon Anemia Melena Orthostatic hypotension Hyperlipidemia Hypertension T2DM (type 2 diabetes mellitus) Leukocytosis (Acute) Elevated lactic acid level (Acute) Metastatic colon cancer to liver (Acute) Abdominal pain (Acute) Medical History BPPV (benign paroxysmal positional vertigo) History of right shoulder fracture Social History Smoking Status: Unknown if ever smoked Hx Alcohol Use: No Hx Substance Use: No Preferred Language: Thai Communication Ability: Effective Wire[employer] Street Light Required: No Beliefs That Will Affect Care: None Current Living Situation: Other Current Living Situation Comment: [facility] Feels Safe at Home: Yes Assistive Devices: None Review of Systems Review of Systems: Unobtainable due to cognitive status Physical Exam Physical Exam: General: patient ill in appearance, BiPAP in place, opens eyes to voice but does not provide history or follow commands Skin: warm, dry, intact, no rashes or lesions HEENT: NC/AT, PERRL, anicteric sclera, conjunctiva without injection, external ear normal to inspection and nontender, nares patent, moist mucus membranes, dentition intact, no oropharyngeal lesions, neck supple, trachea midline, no LAD, no thyromegaly, no JVD Heart: +S1/S2, regular, tachycardic, no m/r/g Lungs: equal air entry bilaterally, coarse breath sounds anteriorly, no wheezing Abd: +BS, soft, NT/ND, no masses/organomegaly/ascites Ext: warm, 2+ pulses in UE/LE bilaterally, no clubbing/cyanosis or edema Neuro: encephalopathy Results & Data Results & Data Vital Signs (Past 12 Hours) Vital Signs Temp Pulse Pulse Resp BP BP Pulse Ox 02/10/24 01:30 113 H 117/77 100 02/10/24 01:15 114 H 107/76 82 L 02/10/24 00:58 122 H 02/10/24 00:56 120 H 33 H 98 02/10/24 00:51 40.5 C H 121 H 31 H 94/64 L 98 02/10/24 00:44 40.5 C H 114 H 26 H 107/76 100 02/10/24 00:44 111 H 25 H 100 02/10/24 00:12 100 02/10/24 00:12 02/10/24 00:12 40.5 C H 111 H 29 H 94/64 L 100 O2 Del Method O2 Flow Rate FiO2 02/10/24 01:30 BiPAP 15 02/10/24 01:15 BiPAP 15 02/10/24 00:58 02/10/24 00:56 90 02/10/24 00:51 BiPAP 15 02/10/24 00:44 CPAP 15 02/10/24 00:44 CPAP 15 02/10/24 00:12 CPAP 15 02/10/24 00:12 CPAP 15 02/10/24 00:12 CPAP 15 Laboratory Results Laboratory Results WBC 16.97 K/ul (4.8-10.8) H 02/10/24 01:15 RBC 2.92 M/uL (4.70-6.10) L 02/10/24 01:15 Hgb 7.7 g/dl (14.0-18.0) L 02/10/24 01:15 POC Hgb 8.5 g/dl (14.0-18.0) L 02/10/24 02:32 Hct 27.1 % (42.0-52.0) L 02/10/24 01:15 POC Hct 25 % (42-52) L 02/10/24 02:32 MCV 92.8 fL (80.0-100.0) 02/10/24 01:15 MCH 26.4 pg (25.0-34.0) 02/10/24 01:15 MCHC 28.4 g/dL (32.0-36.0) L 02/10/24 01:15 RDW Std Deviation 81.9 fL (36.4-46.3) H 02/10/24 01:15 RDW Coeff of Lin 25.3 % (11.5-14.5) H 02/10/24 01:15 Plt Count 240 K/uL (130-400) 02/10/24 01:15 MPV 9.9 fL (9.4-12.4) 02/10/24 01:15 Immature Gran % (Auto) 0.6 % 02/10/24 01:15 Neut % (Auto) 89.8 % 02/10/24 01:15 Lymph % (Auto) 6.2 % 02/10/24 01:15 [place] % (Auto) 3.2 % 02/10/24 01:15 Eos % (Auto) 0.1 % 02/10/24 01:15 Baso % (Auto) 0.1 % 02/10/24 01:15 Neut # (Auto) 15.23 K/uL (1.40-6.50) H 02/10/24 01:15 Lymph # (Auto) 1.06 K/uL (1.20-3.40) L 02/10/24 01:15 [place] # (Auto) 0.54 K/uL (0.11-0.59) 02/10/24 01:15 Eos # (Auto) 0.01 K/uL (0.00-0.50) 02/10/24 01:15 Baso # (Auto) 0.02 K/uL (0.00-0.20) 02/10/24 01:15 Immature Gran # (Auto) 0.11 K/uL (0.01-0.20) 02/10/24 01:15 Absolute Nucleated RBC 0.07 K/uL (0.00-0.12) 02/10/24 01:15 Nucleated RBC % (auto) 0.4 % 02/10/24 01:15 Polychromasia 1+ 02/10/24 01:15 Hypochromasia Present 02/10/24 01:15 Anisocytosis Present 02/10/24 01:15 Target Cells 2+ 02/10/24 01:15 POC pH 7.41 (7.35-7.45) 02/10/24 02:32 POC pCO2 44 mmHg (35-46) 02/10/24 02:32 POC pO2 < 32 mmHg (80-95) L 02/10/24 02:32 POC HCO3 28 misty/L (19-24) H 02/10/24 02:32 POC Total CO2 29 mmol/L (24-31) 02/10/24 02:32 POC Base Excess 3.0 misty/L (-9-1.8) H 02/10/24 02:32 POC ABG O2 Sat 36.0 % (90-95) L 02/10/24 02:32 POC Sodium 149 mmol/L (135-144) H 02/10/24 02:32 Sodium 147 mmol/L (136-145) H 02/10/24 01:15 POC Potassium 4.9 mmol/L (3.3-5.0) 02/10/24 02:32 Potassium 5.3 mmol/L (3.5-5.1) H 02/10/24 01:15 Chloride 111 mmol/L (98-107) H 02/10/24 01:15 Carbon Dioxide 26 mmol/L (21-32) 02/10/24 01:15 Anion Gap 10 (3-11) 02/10/24 01:15 BUN 31 mg/dl (6-23) H 02/10/24 01:15 Creatinine 1.13 mg/dl (0.6-1.4) 02/10/24 01:15 Est Cr Clr Drug Dosing 66.4 ml/min 02/10/24 01:15 Est GFR ( Amer) 80.9 ml/min 02/10/24 01:15 Est GFR (Non-Af Amer) 69.8 ml/min 02/10/24 01:15 BUN/Creatinine Ratio 27.4 (10-20) H 02/10/24 01:15 Glucose 78 mg/dl (70-99(Fasting)) 02/10/24 01:15 Lactate 5.0 mmol/L (0.4-2.0) H* 02/10/24 01:15 Calcium 7.2 mg/dl (8.6-10.3) L 02/10/24 01:15 Magnesium 2.2 mg/dl (1.7-2.4) 02/10/24 01:15 Total Bilirubin 0.8 mg/dl (0.2-1.0) 02/10/24 01:15 Direct Bilirubin 0.5 mg/dl (0-0.2) H 02/10/24 01:15 AST 118 U/L (13-39) H 02/10/24 01:15 ALT 15 U/L (7-52) 02/10/24 01:15 Alkaline Phosphatase 552 U/L (34-104) H 02/10/24 01:15 Ammonia 61.0 umol/L (18-72) 02/10/24 01:15 Troponin I High Sens 109.7 pg/ml (0-20) H* 02/10/24 01:15 Total Protein 6.0 gm/dl (6.0-8.3) 02/10/24 01:15 Albumin 2.0 gm/dl (3.4-5.0) L 02/10/24 01:15 SARS-CoV-2 (PCR) NEGATIVE (Negative) 02/10/24 02:01 Influenza Type A (PCR) Negative (Neg) 02/10/24 02:01 Influenza Type B (PCR) Negative (Neg) 02/10/24 02:01 RSV (RT-PCR) Negative (Neg) 02/10/24 02:01 Diagnostic Findings CXR - per my interpretation with bilateral airspace disease Code Status & VTE Plan VTE Prophylaxis Plan VTE Prophylaxis will be ordered: Yes PG Care Time/CCT Total # of Minutes Spent Total Time Spent with Patient: Total time spent is greater than 50% in coordination of care (as documented) at patient's floor/unit and/or counseling patient: Coding Level of Care Code 97566 INT INP/OBS CARE 375MIN Diagnoses Sepsis A41.9 Acute hypoxic respiratory failure J96.01 Encephalopathy G93.40 T2DM (type 2 diabetes mellitus) E11.9 Metastatic colon cancer to liver C18.9; C78.7
[2024-02-10] MEDS: SODIUM CHLORIDE 0.9% 1,000 ML IV SCH (02:27)
[2024-02-10 02:45] LABS: Influenza A virus by PCR Negative (Neg); Influenza B virus by PCR Negative (Neg); RSV by PCR Negative (Neg); SARS CoV2 RNA(COVID-19) Ceph NEGATIVE (Negative)
[2024-02-10 02:46] LABS: iSTAT Arterial Blood Gas HCO3 28 meg/L (19-24); iSTAT Arterial Blood Gas pCO2 44 mmHg (35-46); iSTAT Arterial Blood Gas pH 7.41 (7.35-7.45); iSTAT Arterial Blood Gas pO2 < 32 mmHg (80-95); iSTAT Carbon Dioxide 29 mmol/L (24-31); iSTAT Hematocrit 25 % (42-52); iSTAT Hemoglobin 8.5 g/dl (14.0-18.0); iSTAT Potassium 4.9 mmol/L (3.3-5.0); iSTAT Sodium 149 mmol/L (135-144)
--- NOTE | 2024-02-10 04:30 | Emergency Department Note ---
Impression & Plan Metastatic colon cancer to liver, Sepsis, Pneumonia ED Provider Note CHIEF COMPLAINT: Fever, altered mental status, hypoxia HISTORY OF PRESENT ILLNESS: This 63-year-old male patient with past medical history of metastatic colon cancer, hypertension, hyperlipidemia, type 2 diabetes presents emergency department from the [facility] where he is an inmate. The patient was noted to be on a "decline" for the last several days. Nursing records indicate that the patient is a DNR. There are advanced directives available in the chart. Patient is noted to be febrile. He was given 1 g of IV Tylenol and route by EMS. He was also given 300 mL of a 1 L bolus that was ordered. Patient been placed on CPAP with some moderate improvement of his oxygenation. REVIEW OF SYSTEMS: A review of systems was performed with positives and pertinent negatives listed in the history of present illness. 10 systems were reviewed and are otherwise negative. ALLERGIES: see below MEDICATIONS: see below PMH: see below SOCIAL HISTORY: see below DDx: Sepsis, pneumonia, UTI, PE, heart failure, pneumothorax, encephalopathy, renal failure among others. PHYSICAL EXAM: Vital signs reviewed. Noted to be febrile. General: Chronically ill-appearing 63-year-old male, in some respiratory discomfort. Cachectic HEENT: No scleral icterus, PERRLA, neck supple. Atraumatic. Cardiovascular: Tachycardic but regular, no extra sounds. Pulmonary: Coarse breath sounds to auscultation bilaterally, increased work of breathing. On CPAP via EMS Abdomen: Soft, nontender, nondistended, positive bowel sounds. Musculoskeletal: Atraumatic, no peripheral edema. Neurologic: Patient somnolent but arousable, opens his eyes to commands, nonverbal but does nod slightly. Skin: Warm, dry, no rash EMERGENCY DEPARTMENT COURSE/MDM: this patient was evaluated and appeared to be in no significant distress. The patient's advance directives states he will accept blood and antibiotics, no artificial respirations. IV access was obtained and laboratory work was drawn. The patient was placed on the surveillance monitor and noted to be in a sinus tachycardia. patient was placed on BiPAP by respiratory therapy. He was hydrated with 1 L of normal saline solution, he had received 300 ml of fluid prior to arrival in the ER. Patient's blood pressure did improve slightly. He was given IV 1 g of acetaminophen by my medical command prior to arrival as well. Blood culture was obtained and the patient was covered with IV Zosyn. Laboratory work reveals a leukocytosis of 16.9, lactate of 5 , procalcitonin of 2.2 and elevated high-sensitivity troponin of 109. EKG reveals a sinus tachycardia with short NV interval with nonspecific ST and T wave changes. Patient is maintaining oxygenation on BiPAP. The COVID, flu and RSV swabs are negative. CXR reveals bilateral pulmonary infiltrates. patient was given a second full liter of normal saline solution for a total of 2300 mL of IV fluid resuscitation. Case was discussed with the hospitalist, Dr. Gordon, for admission and further management. MONITORING: An order for cardiac monitoring was placed and the patient is noted to be in a sinus tachycardia at 112 beats per minute. RADIOLOGY: Chest x-ray to my interpretation reveals bilateral pulmonary infiltrates, left greater than right. Otherwise defer to radiology's over read. EKG: To my interpretation reveals a sinus tachycardia with short NV interval at 118 bpm. Overall low voltage. Nonspecific ST and T wave changes. QTc of 454. No PVC, no PAC. DISPOSITION: Admission I have personally spent greater than 35 minutes of critical care time in the direct management of this patient. This includes bedside care, interpretation of diagnostic studies, and testing, discussion with consultants, patient, and family members, and other required patient management activities. This 35 minutes is in excess of all separately billable procedures. Past Med/Surg History Problem List (Updated 02/11/24 @ 00:11 by Alexandria Weaver MD) Pneumonia (Acute) Sepsis (Acute) Abdominal pain, generalized Weakness generalized Palliative care by specialist Admission for end of life care Advanced care planning/counseling discussion Cancer related pain Dyspnea and respiratory abnormalities Encephalopathy Acute hypoxic respiratory failure Sepsis E coli bacteremia Abnormal CT scan, colon Anemia Melena Orthostatic hypotension Hyperlipidemia Hypertension T2DM (type 2 diabetes mellitus) Leukocytosis (Acute) Elevated lactic acid level (Acute) Metastatic colon cancer to liver (Acute) Abdominal pain (Acute) Medical History BPPV (benign paroxysmal positional vertigo) History of right shoulder fracture Social History (Updated 02/11/24 @ 00:09 by Alexandria Weaver MD) Smoking Status: Unknown if ever smoked Hx Alcohol Use: No Hx Substance Use: No Preferred Language: Icelandic Communication Ability: Effective Packing Supervisor Required: No Beliefs That Will Affect Care: None Current Living Situation: Other Current Living Situation Comment: [facility] Feels Safe at Home: Yes Assistive Devices: None Allergies Allergies Allergy/AdvReac Type Severity Reaction Status Date / Time No Known Allergies Allergy Unverified 02/10/24 01:58 Home Meds Home Medications Medication Instructions Recorded Confirmed acetaminophen 500 mg tablet 500 mg PO TID 01/14/24 02/10/24 (Tylenol Extra Strength) benztropine 2 mg tablet 2 mg PO HS 01/14/24 02/10/24 divalproex 500 mg tablet,delayed 1,000 mg PO HS 01/14/24 02/10/24 release metformin 1,000 mg tablet 1,000 mg PO BID 01/14/24 02/10/24 perphenazine 2 mg tablet 6 mg PO HS 01/14/24 02/10/24 sertraline 100 mg tablet 200 mg PO HS 01/14/24 02/10/24 furosemide 20 mg tablet 20 mg PO DAILY 02/10/24 02/10/24 ondansetron HCl 8 mg tablet 8 mg PO TID PRN Nausea And Vomiting 02/10/24 02/10/24 oxycodone 5 mg tablet 5 mg PO QID PRN pain 02/10/24 02/10/24 Previous Rx's Medication Instructions Recorded ciprofloxacin HCl 500 mg tablet 500 mg PO BID #14 tabs 01/23/24 (Cipro) metronidazole 500 mg tablet 500 mg PO Q8H #21 tabs 01/23/24 Results & Data (ED) Vital Signs Vital Signs - 24 hr 02/10/24 00:12 02/10/24 00:12 02/10/24 00:12 Temperature 40.5 C H Temperature Source Rectal Pulse Rate 111 H Pulse Rate [Right Finger] Pulse Rate from SpO2 Sensor Respiratory Rate 29 H Respiratory Effort / Characteristics Respiratory Depth Deep Respiratory Pattern Blood Pressure 94/64 L Blood Pressure [Left Arm] Blood Pressure Mean 74 Blood Pressure Mean [Left Arm] Pulse Oximetry 100 100 Oxygen Delivery Method CPAP CPAP CPAP Oxygen Flow Rate 15 15 15 Fraction of Inspired Oxygen Sepsis Recent Fever Within 48 Hours Yes Sepsis New/Unexplained Change in Mental Status Yes Sepsis Action Taken by Nursing Physician Notified 02/10/24 00:44 02/10/24 00:44 02/10/24 00:51 Temperature 40.5 C H 40.5 C H Temperature Source Rectal Pulse Rate 111 H 121 H Pulse Rate [Right Finger] 114 H Pulse Rate from SpO2 Sensor 125 H Respiratory Rate 25 H 26 H 31 H Respiratory Effort / Characteristics Respiratory Depth Respiratory Pattern Blood Pressure 94/64 L Blood Pressure [Left Arm] 107/76 Blood Pressure Mean 72 Blood Pressure Mean [Left Arm] 86 Pulse Oximetry 100 100 98 Oxygen Delivery Method CPAP CPAP BiPAP Oxygen Flow Rate 15 15 15 Fraction of Inspired Oxygen Sepsis Recent Fever Within 48 Hours Sepsis New/Unexplained Change in Mental Status Sepsis Action Taken by Nursing 02/10/24 00:56 02/10/24 00:58 02/10/24 01:15 Temperature Temperature Source Pulse Rate 120 H 122 H 114 H Pulse Rate [Right Finger] Pulse Rate from SpO2 Sensor 122 H Respiratory Rate 33 H Respiratory Effort / Characteristics Spontaneous Short of Breath Respiratory Depth Normal Respiratory Pattern Tachypnea Blood Pressure 107/76 Blood Pressure [Left Arm] Blood Pressure Mean 84 Blood Pressure Mean [Left Arm] Pulse Oximetry 98 82 L Oxygen Delivery Method BiPAP Oxygen Flow Rate 15 Fraction of Inspired Oxygen 90 Sepsis Recent Fever Within 48 Hours Sepsis New/Unexplained Change in Mental Status Sepsis Action Taken by Nursing 02/10/24 01:30 Temperature Temperature Source Pulse Rate 113 H Pulse Rate [Right Finger] Pulse Rate from SpO2 Sensor 114 H Respiratory Rate Respiratory Effort / Characteristics Respiratory Depth Respiratory Pattern Blood Pressure 117/77 Blood Pressure [Left Arm] Blood Pressure Mean 84 Blood Pressure Mean [Left Arm] Pulse Oximetry 100 Oxygen Delivery Method BiPAP Oxygen Flow Rate 15 Fraction of Inspired Oxygen Sepsis Recent Fever Within 48 Hours Sepsis New/Unexplained Change in Mental Status Sepsis Action Taken by [facility] Medications Current Medication List: was personally reviewed by me Laboratory Data Attestation: I reviewed the patient's lab results. 02/10/24 01:15 02/10/24 01:15 Lab Results 02/10/24 02/10/24 Range/Units 01:15 02:01 WBC 16.97 H (4.8-10.8) K/ul RBC 2.92 L (4.70-6.10) M/uL Hgb 7.7 L (14.0-18.0) g/dl Hct 27.1 L (42.0-52.0) % MCV 92.8 (80.0-100.0) fL MCH 26.4 (25.0-34.0) pg MCHC 28.4 L (32.0-36.0) g/dL RDW Std Deviation 81.9 H (36.4-46.3) fL RDW Coeff of Lin 25.3 H (11.5-14.5) % Plt Count 240 (130-400) K/uL MPV 9.9 (9.4-12.4) fL Immature Gran % (Auto) 0.6 % Neut % (Auto) 89.8 % Lymph % (Auto) 6.2 % [place] % (Auto) 3.2 % Eos % (Auto) 0.1 % Baso % (Auto) 0.1 % Neut # (Auto) 15.23 H (1.40-6.50) K/uL Lymph # (Auto) 1.06 L (1.20-3.40) K/uL [place] # (Auto) 0.54 (0.11-0.59) K/uL Eos # (Auto) 0.01 (0.00-0.50) K/uL Baso # (Auto) 0.02 (0.00-0.20) K/uL Immature Gran # (Auto) 0.11 (0.01-0.20) K/uL Absolute Nucleated RBC 0.07 (0.00-0.12) K/uL Nucleated RBC % (auto) 0.4 % Polychromasia 1+ Hypochromasia Present Anisocytosis Present Target Cells 2+ Sodium 147 H (136-145) mmol/L Potassium 5.3 H (3.5-5.1) mmol/L Chloride 111 H (98-107) mmol/L Carbon Dioxide 26 (21-32) mmol/L Anion Gap 10 (3-11) BUN 31 H (6-23) mg/dl Creatinine 1.13 (0.6-1.4) mg/dl Est Cr Clr Drug Dosing 66.4 ml/min Est GFR ( Amer) 80.9 ml/min Est GFR (Non-Af Amer) 69.8 ml/min BUN/Creatinine Ratio 27.4 H (10-20) Glucose 78 (70-99(Fasting)) mg/dl Lactate 5.0 H* (0.4-2.0) mmol/L Calcium 7.2 L (8.6-10.3) mg/dl Magnesium 2.2 (1.7-2.4) mg/dl Total Bilirubin 0.8 (0.2-1.0) mg/dl Direct Bilirubin 0.5 H (0-0.2) mg/dl AST 118 H (13-39) U/L ALT 15 (7-52) U/L Alkaline Phosphatase 552 H (34-104) U/L Ammonia 61.0 (18-72) umol/L Troponin I High Sens 109.7 H* (0-20) pg/ml Total Protein 6.0 (6.0-8.3) gm/dl Albumin 2.0 L (3.4-5.0) gm/dl Procalcitonin 2.20 H (0-0.5) ng/ml SARS-CoV-2 (PCR) NEGATIVE (Negative) Influenza Type A (PCR) Negative (Neg) Influenza Type B (PCR) Negative (Neg) RSV (RT-PCR) Negative (Neg) Administered Medications Divalproex Sodium (Divalproex Delay Release 500 Mg Tab) 1,000 mg PO HS [facility] Stop: 03/11/24 20:59 Last Admin: 02/10/24 21:25 Dose: Not Given Documented By: GABRIELLE Morphine Sulfate (Morphine Sulf/Nss) 100 mg in 100 mls @ 2.5 mls/hr IV .Q40H NABIL; Protocol Stop: 02/24/24 12:14 Last Titration: 02/10/24 22:10 Dose: 2.5 mg/hr, 2.5 mls/hr Documented By: GABRIELLE Co-signed By: MALLORIE Titration: 02/10/24 20:38 Dose: 2 mg/hr, 2 mls/hr Documented By: GABRIELLE Co-signed By: MALLORIE Titration: 02/10/24 19:08 Dose: 1.5 mg/hr, 1.5 mls/hr Documented By: GABRIELLE Co-signed By: WEN Titration: 02/10/24 15:19 Dose: 1.5 mg/hr, 1.5 mls/hr Documented By: PARTHA Co-signed By: MARYSE Admin: 02/10/24 14:21 Dose: 1 mg/hr, 1 mls/hr Documented By: WEN Co-signed By: PARTHA Acetaminophen (Ofirmev) 1,000 mg in 100 mls @ 400 mls/hr IV Q6 PRN PRN Reason: Fever Stop: 02/13/24 17:24 Last Infusion: 02/10/24 18:01 Dose: Infused Documented By: Admin: 02/10/24 17:41 Dose: 400 mls/hr Documented By: WEN Perphenazine (Perphenazine 2 Mg Tab) 6 mg PO HS NABIL Stop: 03/11/24 20:59 Last Admin: 02/10/24 21:25 Dose: Not Given Documented By: GABRIELLE Discontinued Medications Hydrocortisone Sodium Succinate (Hydrocortisone Sod Succinate 100 Mg/2 Ml Vial) 100 mg IV NOW STA Stop: 02/10/24 00:45 Last Admin: 02/10/24 00:58 Dose: 100 mg Documented By: CHELE Piperacillin Sod/Tazobactam Sod (Zosyn) 4.5 gm in 100 mls @ 200 mls/hr IV NOW ONE Stop: 02/10/24 01:13 Last Infusion: 02/10/24 01:45 Dose: Infused Documented By: Admin: 02/10/24 01:01 Dose: 200 mls/hr Documented By: CHELE Sodium Chloride (Nss) 1,000 mls @ 999 mls/hr IV .Q1H1M ONE Stop: 02/10/24 01:46 Last Infusion: 02/10/24 02:26 Dose: Infused Documented By: Admin: 02/10/24 01:01 Dose: 999 mls/hr Documented By: CHELE Sodium Chloride (Nss) 1,000 mls @ 150 mls/hr IV .Q6H40M NABIL Stop: 03/11/24 02:14 Last Infusion: 02/10/24 06:00 Dose: Infused Documented By: Admin: 02/10/24 02:27 Dose: 150 mls/hr Documented By: CHELE Sodium Chloride (Nss) 1,000 mls @ 999 mls/hr IV .Q1H1M ONE Stop: 02/10/24 03:14 Last Infusion: 02/10/24 05:59 Dose: Infused Documented By: Admin: 02/10/24 02:22 Dose: 999 mls/hr Documented By: CHELE Piperacillin Sod/Tazobactam Sod (Zosyn) 4.5 gm in 100 mls @ 25 mls/hr IV Q8H NABIL Stop: 02/17/24 05:59 Last Infusion: 02/10/24 11:11 Dose: Infused Documented By: Admin: 02/10/24 06:18 Dose: 25 mls/hr Documented By: Parenteral Electrolytes (Plasma-Lyte A Ph 7.4) 1,000 mls @ 125 mls/hr IV .Q8H NABIL Stop: 02/10/24 21:08 Last Infusion: 02/10/24 14:08 Dose: Infused Documented By: Infusion: 02/10/24 14:06 Dose: 0 mls/hr Documented By: Infusion: 02/10/24 14:05 Dose: 0 mls/hr Documented By: Infusion: 02/10/24 12:46 Dose: 0 mls/hr Documented By: Infusion: 02/10/24 12:29 Dose: 0 mls/hr Documented By: [facility] Admin: 02/10/24 06:18 Dose: 125 mls/hr Documented By: Pantoprazole Sodium 40 mg/ (Syringe) 10 mls @ 5 mls/min IV DAILY@1100 NABIL Stop: 03/11/24 10:59 Last Admin: 02/10/24 11:11 Dose: 5 mls/min Documented By: [facility] Morphine Sulfate (Morphine Sulfate 2 Mg/Ml Carp) 1 mg IV NOW STA Stop: 02/10/24 10:14 Last Admin: 02/10/24 11:06 Dose: 1 mg Documented By: [facility] Imaging Data Radiologist's Impression: Chest X-Ray 02/10/24 00:44 XR chest 1V portable CLINICAL HISTORY: Sepsis TECHNIQUE: Single frontal radiograph of the chest was obtained. Comparison: Comparison is made to chest radiograph 01/14/2024 FINDINGS: Right shoulder reverse arthroplasty is seen. The cardiomediastinal silhouette is normal. Bilateral linear airspace opacities favoring the lower lungs. Likely small left pleural effusion. IMPRESSION: 1. Airspace opacities likely representing atelectasis with or without superimposed aspiration and/or pneumonia. 2. Likely small left pleural effusion. ACT 112: Negative or not required by law. Electronically signed by: Jonathan Breaux M.D. 02/10/2024 7:06 AM Discharge Plan Visit Data Chief Complaint: Respiratory Distress Stated Complaint: RESP. FAILURE ED Provider: Alexandria Weaver Discharge Problem: Metastatic colon cancer to liver, Sepsis, Pneumonia Patient Disposition: Home - Self-Care Discharge Instructions Interventions: ED Discharge Assessment Last Done: 02/10/24 03:32
[2024-02-10] MEDS ORDERED: ONDANSETRON INJ 2 MG/ML 2 ML VIAL IV PRN (05:09)
[2024-02-10] MEDS ORDERED: ACETAMINOPHEN 325 MG TAB PO PRN (05:09)
[2024-02-10] MEDS ORDERED: ALBUTEROL 0.5% NEB SOLN 2.5 MG/0.5 ML VIAL NEB PRN (05:09)
[2024-02-10] MEDS ORDERED: KETOROLAC TROMETHAMINE 15 MG/ML VIAL IV PRN (05:09)
[2024-02-10] MEDS: PIPERACILLIN/TAZOBACTAM 4.5 GM/100 ML BAG IV SCH (06:18)
[2024-02-10] MEDS: PLASMA-LYTE A 1,000 ML IV SCH (06:18)
--- NOTE | 2024-02-10 07:07 | XRay Report ---
XR chest 1V portable CLINICAL HISTORY: Sepsis TECHNIQUE: Single frontal radiograph of the chest was obtained. Comparison: Comparison is made to chest radiograph 01/14/2024 FINDINGS: Right shoulder reverse arthroplasty is seen. The cardiomediastinal silhouette is normal. Bilateral li near airspace opacities favoring the lower lungs. Likely small left pleural effusion. IMPRESSION: 1. Airspace opacities likely representing atelectasis with or without superimposed aspiration and/or pneumonia. 2. Likely small left pleural effusion. ACT 112: Negative or not required by law. Electronically signed by: Jonathan Breaux M.D. 02/10/2024 7:06 AM
--- NOTE | 2024-02-10 09:34 | Electrocardiogram Report ---
Test Reason : Blood Pressure : */* mmHG Vent. Rate : 118 BPM Atrial Rate : 118 BPM P-R Int : 96 ms QRS Dur : 66 ms QT Int : 324 ms P-R-T Axes : 35 -27 -4 degrees QTcB Int : 454 ms Sinus tachycardia with short NV Low voltage QRS Diffuse Nonspecific T wave abnormality Abnormal ECG When compared with ECG of 14-Jan-2024 12:24, NV interval has decreased Confirmed by Franko Nolen ([id number]) on 02/10/2024 9:34:20 AM Referred By: [facility] Confirmed By: Franko Nolen
[2024-02-10] MEDS: MoRPHine SULFATE 2 MG/ML CARP IV STA (11:06)
[2024-02-10] MEDS: PANTOprazole 40 MG in SYRINGE 0 ML IV SCH (11:11)
[2024-02-10 11:27] VITALS: BP 96/58; PULSE 109; O2SAT 91
[2024-02-10] MEDS ORDERED: GLYCOPYRROLATE 0.2 MG/ML VIAL IV PRN (12:07)
[2024-02-10] MEDS ORDERED: LORazepam 1 MG in SYRINGE 0.5 ML IV PRN (12:07)
[2024-02-10] MEDS ORDERED: MoRPHine BOLUS from BAG IV PRN (12:07)
[2024-02-10] MEDS ORDERED: STAT IV Infusion **Titration per Protocol STA (12:07)
--- NOTE | 2024-02-10 12:16 | Communication Note ---
Date of Service: February 10, 2024 Brief Palliative Medicine Note Consult received and appreciated Chart reviewed Full consult note will follow later. Met colon ca with MS[facility] pt opting for comfort care guards x 2 present Will initiate EVENTS DIRECTOR with MS gtt, prn ativan and robinul Non essential, non comfort meds have been stopped. updated nursing and primary team sorority supervisor to visit for EOL care Short anticipated survival likely hours to a 1-2 days Thank you for allowing us to participate in the ongoing care of this patient. Please page with any additional concerns. Mathew Costello DNP Director, Palliative Medicine
--- NOTE | 2024-02-10 13:33 | Communication Note ---
Date of Service: February 10, 2024 Please refer to the H&P dictated earlier this morning for details of presentation on admission. In brief, this is a 63-year-old prisoner, recently diagnosed with metastasized colon cancer and was discharged back to [facility] on 01/22. He comes back with respiratory distress and metabolic encephalopathy. He has been diagnosed with pneumonia, acute hypoxic respiratory failure, sepsis, metabolic encephalopathy. He was started on a BiPAP. I personally had a conversation with the patient and explained to him that his prognosis is poor and we have the option of comfort care. He noted in agreement to comfort care. Palliative care was consulted. Goals of care was switched to comfort care only.
--- NOTE | 2024-02-10 14:13 | Palliative Care Consultation ---
Date of Consultation February 10, 2024 Assessment & Plan (1) Dyspnea and respiratory abnormalities: (2) Cancer related pain: (3) Abdominal pain, generalized: (4) Advanced care planning/counseling discussion: [id number] discussion held with patient and 2 shelter guards present at the bedside x 25min. No other family was present. Patient is aware of his progressive illness. He recognizes that his cancer is reaching a terminal state. He had declined the offer of chemotherapy during the last admission be cause he was told it would be palliative in nature and not curative. He does not wish to prolong the dying process. He wishes to transition to a focus that is more on comfort. He agrees to a comfort focused plan of care and wants improved pain control. We agreed to start a low-dose morphine infusion with the option to bolus more as needed to provide relief. He was in agreement with this plan. Comfort care orders have been written. Nonessential and none comfort focused interventions have been stopped. Case discussed with nursing and respiratory therapy. Once his respiratory effort is more controlled and he is more comfortable with his respiratory dynamics, we will transition him off BiPAP and continue to use medications to relieve any suffering or distress. This plan of care was reviewed specifically and and individually with nursing and respiratory therapy. All questions answered to their apparent satisfaction. (5) Weakness generalized: (6) Palliative care by specialist: Discussed Palliative Medicine provides specialized medical care for patients with a serious illness. We offer a focus on quality of life through reduction of symptom burden/more control over their illness, for patients and their family. Palliative Medicine interventions can be given along with curative treatment. . (7) Admission for end of life care: Plan * Begin low-dose morphine infusion 1 mg/h with 1 mg every 15 minutes as needed for breakthrough pain or air hunger. * Ativan 1 mg IV every 2 hours as needed for myoclonus, spasms, agitation, restlessness, insomnia * Robinul as needed to control secretions. * We have stopped all not comfort/non-essential interventions and medications. * GIP eval requested however this cannot be provided for carceral patients. The shelter does not allow hospice inside the shelter. They have a medical unit that can care for EOL pt but has limited formulary, typically oral opioids/short acting and patient is likely losing ability to take PO. * Overall, short anticipated survival, likely hours to a few days. Primary team, nursing, respiratory therapy updated. Thank you for allowing us to participate in the ongoing care of this patient. Please page with any additional concerns. Mathew Costello DNP Director, Palliative Medicine History of Present Illness Reason for Consultation: Widely metastatic colorectal cancer Attending Physician: Usman Ruiz MD History of Present Illness Mr. Samson is a 63-year-old gentleman who was admitted from the shelter with worsening respiratory failure, abdominal and back pain. He is also lost weight, about 100 pounds within the last 1 year. On admission to the hospital he had a CT scan of the abdomen pelvis, performed on 01/14/2024 which revealed a 12.0 x 8.6 x 8.1 cm necrotic mass involving majority of the cecum and ascending colon. This likely represents the patient's primary malignancy. He had extensive disease within the visualized chest, abdomen and pelvis. There was subacute fractures involving the right posterior 10th rib, T12 and L2 endplates. At the time of initial diagnosis, CEA was greater than 850. Biopsy confirmed a well-differentiated invasive adenocarcinomaJona Cat represented to the [facility] emergency [facility] from [facility] with fever, tachycardia, tachypnea, leukocytosis (WBC 16.97), elevated lactate (5) and the likely source of his sepsis is believed to be pulmonary as well as intra-abdominal given his widely metastatic colorectal cancer. He has been requiring BiPAP support for his respiratory failure without significant improvement. Cassie is seen bedside with 2 shelter guards present. He is awake with at times and intermittently drifts off. He is clearly fatigued from increasing respiratory distress. Work of breathing is increased even with the BiPAP in place. There is use of accessory muscles noted. He is able to answer yes or no questions by nodding or shaking his head. 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 Allergies Allergy/AdvReac Type Severity Reaction Status Date / Time No Known Allergies Allergy Unverified 02/10/24 01:58 Home Medications Medication Instructions Recorded Confirmed Type acetaminophen 500 mg tablet 500 mg PO TID 01/14/24 02/10/24 History (Tylenol Extra Strength) benztropine 2 mg tablet 2 mg PO HS 01/14/24 02/10/24 History divalproex 500 mg tablet,delayed 1,000 mg PO HS 01/14/24 02/10/24 History release metformin 1,000 mg tablet 1,000 mg PO BID 01/14/24 02/10/24 History perphenazine 2 mg tablet 6 mg PO HS 01/14/24 02/10/24 History sertraline 100 mg tablet 200 mg PO HS 01/14/24 02/10/24 History ciprofloxacin HCl 500 mg tablet 500 mg PO BID #14 tabs 01/23/24 02/10/24 Rx (Cipro) metronidazole 500 mg tablet 500 mg PO Q8H #21 tabs 01/23/24 02/10/24 Rx furosemide 20 mg tablet 20 mg PO DAILY 02/10/24 02/10/24 History ondansetron HCl 8 mg tablet 8 mg PO TID PRN Nausea And Vomiting 02/10/24 02/10/24 History oxycodone 5 mg tablet 5 mg PO QID PRN pain 02/10/24 02/10/24 History Patient History Medical History BPPV (benign paroxysmal positional vertigo) History of right shoulder fracture Social History Smoking Status: Unknown if ever smoked Hx Alcohol Use: No Hx Substance Use: No Preferred Language: Gabonese Communication Ability: Effective Steam Tank Operator Required: No Beliefs That Will Affect Care: None Current Living Situation: Other Current Living Situation Comment: [facility] Feels Safe at Home: Yes Assistive Devices: None Review of Systems Review of Systems: All systems reviewed & are unremarkable except as noted in Subjective Physical Exam Physical Exam: Chronically ill, elderly appearing male, appears older than stated age. Respiratory distress with use of accessory muscles noted. BiPAP in place. Bitemporal wasting noted. PERRLA, supple neck, no stridor, mild JVD noted Respiratory effort increased. Use of accessory muscles noted. Breath sounds bilaterally are coarse and somewhat diminished at the base. There is significantly increased work of breathing with use of abdominal muscles noted Abdomen S mildly distended, tender to palpation, bowel sounds diminished Generalized weakness. Skin is pale and cool. There is significant edema to the left upper and lower extremities, +1 to +2 pitting Mild duskiness noted at the nailbeds. Patient can answer some yes or no questions but is not able to follow physical commands. Results & Data Vital Signs (Past 12 Hours) Vital Signs Temp Pulse Pulse Resp BP BP Pulse Ox 02/10/24 11:27 37.1 C 109 H 20 96/58 L 91 02/10/24 11:00 110 H 34 H 95 02/10/24 09:46 110 H 32 H 96 02/10/24 07:39 38.1 C H 112 H 20 97/60 L 95 02/10/24 07:08 110 H 31 H 96 02/10/24 05:24 02/10/24 05:24 37.2 C 111 H 22 101/65 99 02/10/24 04:01 112 H 31 H 97 02/10/24 03:32 109 H 29 H 128/83 99 O2 Del Method FiO2 02/10/24 11:27 BiPAP 02/10/24 11:00 60 02/10/24 09:46 70 02/10/24 07:39 BiPAP 02/10/24 07:08 80 02/10/24 05:24 BiPAP 80 02/10/24 05:24 BiPAP 02/10/24 04:01 80 02/10/24 03:32 BiPAP Laboratory Results Laboratory Results WBC 16.97 K/ul (4.8-10.8) H 02/10/24 01:15 RBC 2.92 M/uL (4.70-6.10) L 02/10/24 01:15 Hgb 7.7 g/dl (14.0-18.0) L 02/10/24 01:15 POC Hgb 8.5 g/dl (14.0-18.0) L 02/10/24 02:32 Hct 27.1 % (42.0-52.0) L 02/10/24 01:15 POC Hct 25 % (42-52) L 02/10/24 02:32 MCV 92.8 fL (80.0-100.0) 02/10/24 01:15 MCH 26.4 pg (25.0-34.0) 02/10/24 01:15 MCHC 28.4 g/dL (32.0-36.0) L 02/10/24 01:15 RDW Std Deviation 81.9 fL (36.4-46.3) H 02/10/24 01:15 RDW Coeff of Lin 25.3 % (11.5-14.5) H 02/10/24 01:15 Plt Count 240 K/uL (130-400) 02/10/24 01:15 MPV 9.9 fL (9.4-12.4) 02/10/24 01:15 Immature Gran % (Auto) 0.6 % 02/10/24 01:15 Neut % (Auto) 89.8 % 02/10/24 01:15 Lymph % (Auto) 6.2 % 02/10/24 01:15 [place] % (Auto) 3.2 % 02/10/24 01:15 Eos % (Auto) 0.1 % 02/10/24 01:15 Baso % (Auto) 0.1 % 02/10/24 01:15 Neut # (Auto) 15.23 K/uL (1.40-6.50) H 02/10/24 01:15 Lymph # (Auto) 1.06 K/uL (1.20-3.40) L 02/10/24 01:15 [place] # (Auto) 0.54 K/uL (0.11-0.59) 02/10/24 01:15 Eos # (Auto) 0.01 K/uL (0.00-0.50) 02/10/24 01:15 Baso # (Auto) 0.02 K/uL (0.00-0.20) 02/10/24 01:15 Immature Gran # (Auto) 0.11 K/uL (0.01-0.20) 02/10/24 01:15 Absolute Nucleated RBC 0.07 K/uL (0.00-0.12) 02/10/24 01:15 Nucleated RBC % (auto) 0.4 % 02/10/24 01:15 Polychromasia 1+ 02/10/24 01:15 Hypochromasia Present 02/10/24 01:15 Anisocytosis Present 02/10/24 01:15 Target Cells 2+ 02/10/24 01:15 POC pH 7.41 (7.35-7.45) 02/10/24 02:32 POC pCO2 44 mmHg (35-46) 02/10/24 02:32 POC pO2 < 32 mmHg (80-95) L 02/10/24 02:32 POC HCO3 28 misty/L (19-24) H 02/10/24 02:32 POC Total CO2 29 mmol/L (24-31) 02/10/24 02:32 POC Base Excess 3.0 misty/L (-9-1.8) H 02/10/24 02:32 POC ABG O2 Sat 36.0 % (90-95) L 02/10/24 02:32 POC Sodium 149 mmol/L (135-144) H 02/10/24 02:32 Sodium 147 mmol/L (136-145) H 02/10/24 01:15 POC Potassium 4.9 mmol/L (3.3-5.0) 02/10/24 02:32 Potassium 5.3 mmol/L (3.5-5.1) H 02/10/24 01:15 Chloride 111 mmol/L (98-107) H 02/10/24 01:15 Carbon Dioxide 26 mmol/L (21-32) 02/10/24 01:15 Anion Gap 10 (3-11) 02/10/24 01:15 BUN 31 mg/dl (6-23) H 02/10/24 01:15 Creatinine 1.13 mg/dl (0.6-1.4) 02/10/24 01:15 Est Cr Clr Drug Dosing 66.4 ml/min 02/10/24 01:15 Est GFR ( Amer) 80.9 ml/min 02/10/24 01:15 Est GFR (Non-Af Amer) 69.8 ml/min 02/10/24 01:15 BUN/Creatinine Ratio 27.4 (10-20) H 02/10/24 01:15 Glucose 78 mg/dl (70-99(Fasting)) 02/10/24 01:15 POC Glucose 102 mg/dl (70-99) H 02/10/24 05:00 Lactate 2.7 mmol/L (0.4-2.0) H* 02/10/24 05:28 Calcium 7.2 mg/dl (8.6-10.3) L 02/10/24 01:15 Magnesium 2.2 mg/dl (1.7-2.4) 02/10/24 01:15 Total Bilirubin 0.8 mg/dl (0.2-1.0) 02/10/24 01:15 Direct Bilirubin 0.5 mg/dl (0-0.2) H 02/10/24 01:15 AST 118 U/L (13-39) H 02/10/24 01:15 ALT 15 U/L (7-52) 02/10/24 01:15 Alkaline Phosphatase 552 U/L (34-104) H 02/10/24 01:15 Ammonia 61.0 umol/L (18-72) 02/10/24 01:15 Troponin I High Sens 109.1 pg/ml (0-20) H* 02/10/24 05:28 B-Natriuretic Peptide 140 pg/ml (0-100) H 02/10/24 05:28 Total Protein 6.0 gm/dl (6.0-8.3) 02/10/24 01:15 Albumin 2.0 gm/dl (3.4-5.0) L 02/10/24 01:15 Procalcitonin 2.20 ng/ml (0-0.5) H 02/10/24 01:15 SARS-CoV-2 (PCR) NEGATIVE (Negative) 02/10/24 02:01 Influenza Type A (PCR) Negative (Neg) 02/10/24 02:01 Influenza Type B (PCR) Negative (Neg) 02/10/24 02:01 RSV (RT-PCR) Negative (Neg) 02/10/24 02:01 Impressions Chest X-Ray 02/10/24 00:44 XR chest 1V portable CLINICAL HISTORY: Sepsis TECHNIQUE: Single frontal radiograph of the chest was obtained. Comparison: Comparison is made to chest radiograph 01/14/2024 FINDINGS: Right shoulder reverse arthroplasty is seen. The cardiomediastinal silhouette is normal. Bilateral linear airspace opacities favoring the lower lungs. Likely small left pleural effusion. IMPRESSION: 1. Airspace opacities likely representing atelectasis with or without superimposed aspiration and/or pneumonia. 2. Likely small left pleural effusion. ACT 112: Negative or not required by law. Electronically signed by: Jonathan Breaux M.D. 02/10/2024 7:06 AM Diagnostic Findings Laboratory Results WBC 16.97 K/ul (4.8-10.8) H 02/10/24 01:15 RBC 2.92 M/uL (4.70-6.10) L 02/10/24 01:15 Hgb 7.7 g/dl (14.0-18.0) L 02/10/24 01:15 POC Hgb 8.5 g/dl (14.0-18.0) L 02/10/24 02:32 Hct 27.1 % (42.0-52.0) L 02/10/24 01:15 POC Hct 25 % (42-52) L 02/10/24 02:32 MCV 92.8 fL (80.0-100.0) 02/10/24 01:15 MCH 26.4 pg (25.0-34.0) 02/10/24 01:15 MCHC 28.4 g/dL (32.0-36.0) L 02/10/24 01:15 RDW Std Deviation 81.9 fL (36.4-46.3) H 02/10/24 01:15 RDW Coeff of Lin 25.3 % (11.5-14.5) H 02/10/24 01:15 Plt Count 240 K/uL (130-400) 02/10/24 01:15 MPV 9.9 fL (9.4-12.4) 02/10/24 01:15 Immature Gran % (Auto) 0.6 % 02/10/24 01:15 Neut % (Auto) 89.8 % 02/10/24 01:15 Lymph % (Auto) 6.2 % 02/10/24 01:15 [place] % (Auto) 3.2 % 02/10/24 01:15 Eos % (Auto) 0.1 % 02/10/24 01:15 Baso % (Auto) 0.1 % 02/10/24 01:15 Neut # (Auto) 15.23 K/uL (1.40-6.50) H 02/10/24 01:15 Lymph # (Auto) 1.06 K/uL (1.20-3.40) L 02/10/24 01:15 [place] # (Auto) 0.54 K/uL (0.11-0.59) 02/10/24 01:15 Eos # (Auto) 0.01 K/uL (0.00-0.50) 02/10/24 01:15 Baso # (Auto) 0.02 K/uL (0.00-0.20) 02/10/24 01:15 Immature Gran # (Auto) 0.11 K/uL (0.01-0.20) 02/10/24 01:15 Absolute Nucleated RBC 0.07 K/uL (0.00-0.12) 02/10/24 01:15 Nucleated RBC % (auto) 0.4 % 02/10/24 01:15 Polychromasia 1+ 02/10/24 01:15 Hypochromasia Present 02/10/24 01:15 Anisocytosis Present 02/10/24 01:15 Target Cells 2+ 02/10/24 01:15 POC pH 7.41 (7.35-7.45) 02/10/24 02:32 POC pCO2 44 mmHg (35-46) 02/10/24 02:32 POC pO2 < 32 mmHg (80-95) L 02/10/24 02:32 POC HCO3 28 imsty/L (19-24) H 02/10/24 02:32 POC Total CO2 29 mmol/L (24-31) 02/10/24 02:32 POC Base Excess 3.0 misty/L (-9-1.8) H 02/10/24 02:32 POC ABG O2 Sat 36.0 % (90-95) L 02/10/24 02:32 POC Sodium 149 mmol/L (135-144) H 02/10/24 02:32 Sodium 147 mmol/L (136-145) H 02/10/24 01:15 POC Potassium 4.9 mmol/L (3.3-5.0) 02/10/24 02:32 Potassium 5.3 mmol/L (3.5-5.1) H 02/10/24 01:15 Chloride 111 mmol/L (98-107) H 02/10/24 01:15 Carbon Dioxide 26 mmol/L (21-32) 02/10/24 01:15 Anion Gap 10 (3-11) 02/10/24 01:15 BUN 31 mg/dl (6-23) H 02/10/24 01:15 Creatinine 1.13 mg/dl (0.6-1.4) 02/10/24 01:15 Est Cr Clr Drug Dosing 66.4 ml/min 02/10/24 01:15 Est GFR ( Amer) 80.9 ml/min 02/10/24 01:15 Est GFR (Non-Af Amer) 69.8 ml/min 02/10/24 01:15 BUN/Creatinine Ratio 27.4 (10-20) H 02/10/24 01:15 Glucose 78 mg/dl (70-99(Fasting)) 02/10/24 01:15 POC Glucose 102 mg/dl (70-99) H 02/10/24 05:00 Lactate 2.7 mmol/L (0.4-2.0) H* 02/10/24 05:28 Calcium 7.2 mg/dl (8.6-10.3) L 02/10/24 01:15 Magnesium 2.2 mg/dl (1.7-2.4) 02/10/24 01:15 Total Bilirubin 0.8 mg/dl (0.2-1.0) 02/10/24 01:15 Direct Bilirubin 0.5 mg/dl (0-0.2) H 02/10/24 01:15 AST 118 U/L (13-39) H 02/10/24 01:15 ALT 15 U/L (7-52) 02/10/24 01:15 Alkaline Phosphatase 552 U/L (34-104) H 02/10/24 01:15 Ammonia 61.0 umol/L (18-72) 02/10/24 01:15 Troponin I High Sens 109.1 pg/ml (0-20) H* 02/10/24 05:28 B-Natriuretic Peptide 140 pg/ml (0-100) H 02/10/24 05:28 Total Protein 6.0 gm/dl (6.0-8.3) 02/10/24 01:15 Albumin 2.0 gm/dl (3.4-5.0) L 02/10/24 01:15 Procalcitonin 2.20 ng/ml (0-0.5) H 02/10/24 01:15 SARS-CoV-2 (PCR) NEGATIVE (Negative) 02/10/24 02:01 Influenza Type A (PCR) Negative (Neg) 02/10/24 02:01 Influenza Type B (PCR) Negative (Neg) 02/10/24 02:01 RSV (RT-PCR) Negative (Neg) 02/10/24 02:01 Impressions Chest X-Ray 02/10/24 00:44 XR chest 1V portable CLINICAL HISTORY: Sepsis TECHNIQUE: Single frontal radiograph of the chest was obtained. Comparison: Comparison is made to chest radiograph 01/14/2024 FINDINGS: Right shoulder reverse arthroplasty is seen. The cardiomediastinal silhouette is normal. Bilateral linear airspace opacities favoring the lower lungs. Likely small left pleural effusion. IMPRESSION: 1. Airspace opacities likely representing atelectasis with or without superimposed aspiration and/or pneumonia. 2. Likely small left pleural effusion. ACT 112: Negative or not required by law. Electronically signed by: Jonathan Breaux M.D. 02/10/2024 7:06 AM PG Care Time/CCT Total # of Minutes Spent Total Time Spent with Patient: Total time spent is greater than 50% in coordination of care (as documented) at patient's floor/unit and/or counseling patient: I spent 100 minutes overall addressing this case: 20 min in medical data review/discussion with referring provider(s) and/or preparation for the visit 20 min in direct interaction with the patient/exam 25 min in Advance Care Planning/Goals of Care discussions as detailed above in note (must be >16min) 15 min in subsequent review and synthesis of assessment and plan 20 min communicating with other providers regarding the patient's case: primary, nursing, RT Advanced Care Planning 98005 Advanced Care Planning 30 [place] [address] IN/OBS CONSULT LVL 5,80M (25 - SIGNIFICANT, SEPARATELY IDENTIFIABLE ) Patient Type New Medical Decision Making High Complexity Diagnoses Dyspnea and respiratory abnormalities R06.00; R06.89 Cancer related pain G89.3 Abdominal pain, generalized R10.84 Advanced care planning/counseling discussion Z71.89 Weakness generalized R53.1 Palliative care by specialist Z51.5 Admission for end of life care Z51.5 Additional Codes Advanced Care Planning - 34584 Advanced Care Planning 30 Min: 07476 Advanced Care Planning 30 Min ([id number])
[2024-02-10] MEDS: MoRPHine SULF/NSS 100 MG/100 ML BAG IV SCH (14:21)
[2024-02-10 17:17] VITALS: TEMP 100.6
[2024-02-10] MEDS: ACETAMINOPHEN 1,000 MG/100 ML VIAL IV PRN (17:41)
[2024-02-10] MEDS ORDERED: SERTRALINE HCL 100 MG TABLET PO SCH (21:00)
[2024-02-10] MEDS ORDERED: BENZTROPINE MESYLATE 1 MG TAB PO SCH (21:00)
[2024-02-10] MEDS: DIVALPROEX DELAY RELEASE 500 MG TAB PO SCH (21:25)
[2024-02-10] MEDS: PERPHENAZINE 2 MG TAB PO SCH (21:25)
[2024-02-11 11:43] VITALS: RESP 12
--- NOTE | 2024-02-11 13:21 | Death Pronouncement Note ---
Date of Service February 11, 2024 Pronouncement Note Admission Date February 10, 2024 Date and Time of Date of : 02/11/24 Time of : 13:13 Preliminary Cause of (1) Pneumonia: Laterality: bilateral Lung location: lower lobe of lung Pneumonia type: due to unspecified organism Qualified Code(s): J18.9 - Pneumonia, unspecified organism (2) Sepsis: Acute respiratory failure type: with hypoxia Sepsis acute organ dysfunction status: with acute organ dysfunction Sepsis type: sepsis due to unspecified organism Severe sepsis acute organ dysfunction type: acute respiratory failure Severe sepsis shock status: with septic shock Qualified Code(s): A41.9 - Sepsis, unspecified organism; R65.21 - Severe sepsis with septic shock; J96.01 - Acute respiratory failure with hypoxia (3) Acute hypoxic respiratory failure: (4) Metastatic colon cancer to liver: Additional Data Confirmation of : no pulse, no respirations, no heart sounds and pupils fixed and dilated Pronouncement Performed By: Attending Physician Family: not available Additional persons at bedside: other Attending physician: Usman Ruiz MD Was code activated?: No Autopsy requested?: No
--- NOTE | 2024-02-11 13:28 | Discharge Summary ---
Date of Service February 11, 2024 Admission HPI Per Admitting Provider Stephania Samson is a 63yo male with history of HTN, HLP, DM and metastatic colon cancer presenting with shortness of breath, acute hypoxic respiratory failure and metabolic encephalopathy. Patient was recently hospitalized at [facility] from 01/14/24 - 01/23/24. Found to have a 12 x 8 x 8 necrotic mass of the cecum and ascending colon - biopsy positive for well differentiated adenocarcinoma. Also with E. coli bacteremia thought to be secondary to underlying malignancy. Patient was discharged - did not undergo chemotherapy. Encephalopathic on exam - unable to provide history. Per discussion with CO's and chart review - patient has been declining over the last two days with worsening shortness of breath. Today he developed worsening shortness of breath and hypoxia. At the [facility] he was tachycardic, tachypneic, hypoxic. He was noted to be 79% on supplemental O2 21L at [facility]. Patient febrile, tachycardic, tachypneic and altered in the ER. He was placed on BiPAP with very slight improvement in his mental status. He is unable to provide history or ROS. ER Course: Pre-hospital 300mL ER - Hydrocortisone 100mg IV Zosyn 4.5gm NSS x 2L then at 150mL/hr Principal Diagnosis Sepsis, likely source pneumonia Acute hypoxic respiratory failure secondary to pneumonia Metabolic encephalopathy Recently diagnosed metastatic colon cancer Discharge Exam Patient Discharge Data Allergies Allergy/AdvReac Type Severity Reaction Status Date / Time No Known Allergies Allergy Unverified 02/10/24 01:58 Consultations 02/10/24 01:37 ED Decision to Admit Stat 02/10/24 10:15 Consult Palliative Care Routine Hospital Course (1) Sepsis: Patient was thought to be septic with fever, tachycardia, tachypnea and leukocytosis. Lactic acidosis. Source was likely thought to be pulmonary although intra-abdominal source was considered given metastatic colon cancer. Patient was treated with broad-spectrum IV antibiotics. Despite all efforts, he continued to decline. He accepted comfort care (2) Pneumonia: See problems 1 and 3 (3) Acute hypoxic respiratory failure: Likely secondary to pneumonia. Patient with improved saturations on BiPAP -Patient was initially maintained on BiPAP, however his condition did not improve despite all efforts Patient chose comfort care BiPAP was removed (4) Metastatic colon cancer to liver: In light of his recent diagnosis of metastatic colon cancer, he accepted comfort care. Palliative care was consulted and the patient was started on comfort care medications. All curative measures were discontinued. The patient passed on 02/10 at 1:13 PM Plan Schizophrenia -Continue Cogentin -Continue Divalproex -Continue Perphenazine -Continue Sertraline Total Time Total Time Spent Total Time Spent (In Minutes): 35 Discharge Plan Discharge Items Patient Disposition: Reason For Visit: METABOLIC ENCEPHALOPATHY, HYPOXIC RESP FAILURE Follow-up/Referrals: Julieta GALVAN [Primary Care Provider] - Medications and DC Order Prescriptions: No Action perphenazine 2 mg Tablet 6 mg PO HS sertraline 100 mg Tablet 200 mg PO HS divalproex 500 mg Tablet,Delayed Release (Dr/Ec) 1,000 mg PO HS acetaminophen [Tylenol Extra Strength] 500 mg Tablet 500 mg PO TID metformin 1,000 mg Tablet 1,000 mg PO BID benztropine 2 mg Tablet 2 mg PO HS metronidazole 500 mg Tablet 500 mg PO Q8H Qty: 21 0RF ciprofloxacin HCl [Cipro] 500 mg tablet 500 mg PO BID Qty: 14 0RF ondansetron HCl 8 mg Tablet 8 mg PO TID PRN (Reason: Nausea And Vomiting) oxycodone 5 mg tablet 5 mg PO QID PRN (Reason: pain) furosemide 20 mg Tablet 20 mg PO DAILY Admission Data Admit Date/Time: 02/10/24 02:23 Attending Provider: Usman Ruiz Admit Provider: Antnoia Gordon Primary Care Provider: Julieta GALVAN Other Providers: Antonia Gordon; Yoon Costello
--- NOTE | 2024-02-11 15:12 | Communication Note ---
Date of Service: February 11, 2024 Brief Pall Med Note Arrived to see pt, he has just /pronounced by primary team guards have notified long term, Lieutenant en route per long term protocol D/w nursing, support provided to staff. no charge submitted TS 25min Thank you for allowing us to participate in the ongoing care of this patient. Mathew Costello DNP Director, Palliative Medicine
== END 2024-02-11 15:00 | disposition expired | DRG 871 ==
LOC: ED 00:41 → 2N 02:23 → SUATTDRO 02:23 → 2N 03:32